=== PATIENT | female | born 1990 | race Caucasian/White ===

== ENCOUNTER 2020-05-17 17:28 | Emergency (ER) | payer OTHER, SELFPAY ==
[2020-05-17 17:38] VITALS: BP 117/76; PULSE 100; RESP 18; TEMP 36.7; O2SAT 100; BMI 33.3
--- NOTE | 2020-05-17 17:41 | XR_ITS ---
EXAMINATION: XR CHEST CLINICAL INFORMATION: Chest pain COMPARISON: None TECHNIQUE: Frontal view of the chest was obtained. FINDINGS: No significant abnormality is noted involving the heart, lungs, mediastinum, bony thorax or soft tissues. XR/XR chest 1V IMPRESSION: Unremarkable examination.
--- NOTE | 2020-05-17 17:41 | ECG_ITS ---
Test Reason : CHEST PAIN Blood Pressure : / mmHG Vent. Rate : 090 BPM Atrial Rate : 090 BPM P-R Int : 166 ms QRS Dur : 088 ms QT Int : 376 ms P-R-T Axes : 041 045 051 degrees QTc Int : 459 ms Normal sinus rhythm Nonspecific T wave abnormality Abnormal ECG When compared with ECG of 18-MAR-2019 14:16, Nonspecific T wave abnormality now evident in Anterior leads Referred By: Soledad Melo Electronically Signed By:VANDANA ARRIAGA
--- NOTE | 2020-05-17 17:42 | CT_ITS ---
EXAMINATION: CT ABDOMEN AND PELVIS WITH CONTRAST CLINICAL INFORMATION: Diffuse pain. History of pancreatitis COMPARISON: Baseline 06/06/2019 TECHNIQUE: Multidetector volumetric images were obtained from the superior aspect of the liver through the pubic symphysis following administration 85 mL of Omnipaque 350 intravenous contrast. Sagittal and coronal reformatted images were obtained on the technologist's workstation. Oral contrast: No This CT examination was performed using dose optimization techniques as appropriate, variously including the following: *Automated exposure control *Adjustment of mA and/or kV according to patient size (this includes techniques or standardized protocols for targeted exams where dose is matched to indication/reason for exam; i.e. extremities or head) *Use of iterative reconstruction technique DLP: 801 mGy-cm FINDINGS: LUNG BASES: The visualized lung bases are unremarkable. LIVER, GALLBLADDER, AND BILIARY TREE: Normal volume. Tiny cyst centrally within the liver unchanged from baseline examinations. Gallbladder is absent consistent surgical history. No biliary dilatation. PANCREAS: Unremarkable. SPLEEN: Incidental splenule. ADRENAL GLANDS: Unremarkable. KIDNEYS AND URETERS: The kidneys are normal in size, shape, and attenuation. No hydronephrosis, hydroureter, or calculi seen. No perinephric stranding. BLADDER: Unremarkable. GASTROINTESTINAL TRACT: The small and large bowel are unremarkable. The appendix is unremarkable. ABDOMINAL WALL: Tiny fat-containing umbilical hernia LYMPH NODES: Normal. VASCULAR: Unremarkable. PELVIC VISCERA: Displaced right fallopian tube ligation clip noted once again. There are morphology difficult to assess. Cystic changes suspected within both ovaries. OSSEOUS STRUCTURES: Unremarkable. CT/CT abdomen pelvis w con IMPRESSION: No bowel pathology. No evidence for any pancreatitis. If symptoms are referrable to the pelvis, consider pelvic ultrasound to assess the uterus and ovaries to better advantage. Displaced right-sided tubal ligation clip again noted.
--- NOTE | 2020-05-17 17:43 | ED.CHESTPAIN ---
HPI - Chest Pain General Chief Complaint: Chest Pain Stated Complaint: chest pain Time Seen by Provider: 05/17/20 17:34 Source: patient Mode of arrival: ambulatory History of Present Illness HPI narrative: 30-year-old female with a past medical history of pancreatitis presenting to ED complaining of constant stabbing chest pain x2 days with radiation to back. Also reports diffuse abdominal pain, nausea, and vomiting x2 days. Admits symptoms feels similar to prior pancreatitis. Denies fever, chills, diarrhea/constipation, SOB, recent travel, LE edema, calf pain, dysuria/hematuria, vaginal bleeding/discharge MD complaint: chest pain Related Data Allergies Allergy/AdvReac Type Severity Reaction Status Date / Time No Known Allergies Allergy Unverified 02/21/20 19:42 [No Known Allergies*] Review of Systems Review of Systems: Constitutional: No Weight loss, No Fever, No Chills, No Night Sweats, No Fatigue, No Malaise Cardiovascular: + Chest Pain, No SOB, No Edema, No Palpitations Respiratory: + Cough, No Sputum, No Wheezing, No Smoke Exposure, No Dyspnea Gastrointestinal: + Nausea, + Vomiting, No Diarrhea, No Constipation, + Abdominal pain Genitourinary: No irregular bleeding, No Dysuria, No Urinary Frequency, No Hematuria Musculoskeletal: No joint pain, No Myalgias, No Joint Swelling Skin: No Skin Lesions, No rash Neuro: No Weakness, No Numbness, No Paresthesias, No Loss of Consciousness, No Dizziness, No Headache Yes all other systems are reviewed and are negative [facility] Past Medical History Attestation statement: The following information was validated with the patient. Medical History (Updated 05/17/20 @ 20:44 by NATE Escoto) No known health problems Social History Social History Alcohol intake: never Smoked in Last 30 Days: Yes Use of substances other than those prescribed or required for medical reasons: No Advance Directives: No Advance Directives Information Provided: No Physical Exam Vital Signs: Vital Signs: Last Vital Signs Temp 98.2 F 05/17/20 20:24 Pulse 85 05/17/20 20:24 Resp 18 05/17/20 20:24 BP 107/66 05/17/20 20:24 Pulse Ox 100 05/17/20 20:24 Body Mass Index 33.3 Const: General: cooperative and healthy appearing Orientation/consciousness: patient oriented x3 Limitations: no limitations HENMT: Head: Yes normal to inspection Ears: hearing grossly normal bilaterally General nose exam: Normal external nose present Face and sinus: Yes normal facial exam Eyes: General: appearance normal, both eyes and all related structures EOM: EOMs intact bilaterally Neck: Neck: Yes normal visual inspection and Yes no meningeal signs Resp: Effort & Inspection: normal respiratory effort Auscultation: clear to auscultation bilaterally, no rales, no rhonchi and no wheezes Cardio: Rate: regular rate Heart sounds: S1 normal heart sound present and S2 normal heart sound present GI: Inspection: Yes normal to inspection Palpation (GI): Soft to palpation, Tenderness to palpation present (GI) in the epigastrum, in the LLQ, in the LUQ and in the RUQ, no guarding and not rigid Skin: Rashes: no rashes Wounds: no wounds Neuro: General: patient oriented x3 and no meningeal signs Gait exam (Neuro): Normal gait present Extrem: General: Yes normal to inspection Course Course Course Narrative: -labs are unremarkable, troponin negative, UA contaminated and negative -CXR unremarkable -2100--ED care transfer to [facility] pending CTAP and dispo per results MDM - Chest Pain MDM Narrative Medical decision making narrative: 30-year-old female with a past medical history of pancreatitis presenting to ED complaining of constant stabbing chest pain x2 days with radiation to back. Also reports diffuse abdominal pain, nausea, and vomiting x2 days. On exam VSS, NAD/well-appearing/nontoxic, lungs CTA, abdomen soft with upper and left lower tenderness, no rebound or guarding. Concern for ACS vs pancreatitis/liver disease vs diverticulitis. Appendicitis/renal stone on differential but lower. Low concern for pneumonia/PE/COVID-19 Plan: EKG, labs, UA, CXR, CT AP, IVF, symptomatic therapy/reassess Lab Data Result diagrams: 05/17/20 17:58 05/17/20 17:58 Labs: Lab Results 05/17/20 05/17/20 05/17/20 Range/Units 17:58 17:58 17:58 WBC 8.6 (4.8-10.8) X10*3/uL RBC 4.40 (4.20-5.50) X10*6/uL Hgb 11.5 L (12.0-16.0) g/dl Hct 37.5 (37-47) % MCV 85.2 (80-98) fL MCH 26.1 L (27.0-33.0) pg MCHC 30.7 L (31.0-35.0) g/dl RDW 14.8 (11.0-16.0) % Plt Count 292 (160-400) X10*3/uL MPV 9.2 L (9.4-12.3) fL Immature Gran % (Auto) 0.2 (0.0-0.4) % Neut % (Auto) 58.1 (45-73) % Lymph % (Auto) 36.0 (20-40) % [place] % (Auto) 3.7 (2-11) % Eos % (Auto) 1.8 (0-4) % Baso % (Auto) 0.2 (0-2) % Lymph # (Auto) 3.1 (1.2-4.9) X10*3/uL [place] # (Auto) 0.3 (0.1-1.2) X10*3/uL Eos # (Auto) 0.2 (0.0-0.4) X10*3/uL Baso # (Auto) 0.0 (0.0-0.2) X10*3/uL Abs Immat Gran (auto) 0.02 (0.00-0.03) X10*3/uL Absolute Neuts (auto) 5.0 (2.0-8.3) X10*3/uL Absolute Nucleated RBC 0.000 (0.0-0.012) X10*3/uL Nucleated RBC % (auto) 0.0 (0.0-0.2) /100WBC Hold Blue Top SEE NOTE Sodium 140 (135-145) mmol/L Potassium 4.4 (3.3-5.1) mmol/l Chloride 110 H (96-108) mmol/L Carbon Dioxide 21 L (22-29) mmol/L Anion Gap 13 (12-20) BUN 11 (9-16) mg/dL Creatinine 0.81 (0.5-1.4) mg/dL Estim Creat Clear Calc 111.9 Estimated GFR > 60 Random Glucose 85 (60-115) mg/dL Calcium 8.7 (8.4-10.2) mg/dL Magnesium 2.0 (1.6-2.6) mg/dL Total Bilirubin < 0.2 (0.0-1.0) mg/dL Direct Bilirubin < 0.2 (0.0-0.5) mg/dL AST 16 (5-31) U/L ALT 16 (0-31) U/L Alkaline Phosphatase 80 (39-117) U/L Troponin I High Sens (<3.5-17.0) ng/L Total Protein 6.7 (6.5-8.0) g/dL Albumin 4.1 (3.5-5.0) g/dL Lipase 40 (8-78) U/L Urine Color Urine Appearance Urine pH (5.0-8.0) Ur Specific [place] (1.005-1.025) Urine Protein (NEG-TRACE) MG/DL Urine Glucose (UA) (NEG) MG/DL Urine Ketones (NEG) MG/DL Urine Blood (NEG) Urine Nitrite (NEG) Ur Leukocyte Esterase (NEG) 05/17/20 05/17/20 Range/Units 17:58 20:46 WBC (4.8-10.8) X10*3/uL RBC (4.20-5.50) X10*6/uL Hgb (12.0-16.0) g/dl Hct (37-47) % MCV (80-98) fL MCH (27.0-33.0) pg MCHC (31.0-35.0) g/dl RDW (11.0-16.0) % Plt Count (160-400) X10*3/uL MPV (9.4-12.3) fL Immature Gran % (Auto) (0.0-0.4) % Neut % (Auto) (45-73) % Lymph % (Auto) (20-40) % [place] % (Auto) (2-11) % Eos % (Auto) (0-4) % Baso % (Auto) (0-2) % Lymph # (Auto) (1.2-4.9) X10*3/uL [place] # (Auto) (0.1-1.2) X10*3/uL Eos # (Auto) (0.0-0.4) X10*3/uL Baso # (Auto) (0.0-0.2) X10*3/uL Abs Immat Gran (auto) (0.00-0.03) X10*3/uL Absolute Neuts (auto) (2.0-8.3) X10*3/uL Absolute Nucleated RBC (0.0-0.012) X10*3/uL Nucleated RBC % (auto) (0.0-0.2) /100WBC Hold Blue Top Sodium (135-145) mmol/L Potassium (3.3-5.1) mmol/l Chloride (96-108) mmol/L Carbon Dioxide (22-29) mmol/L Anion Gap (12-20) BUN (9-16) mg/dL Creatinine (0.5-1.4) mg/dL Estim Creat Clear Calc Estimated GFR Random Glucose (60-115) mg/dL Calcium (8.4-10.2) mg/dL Magnesium (1.6-2.6) mg/dL Total Bilirubin (0.0-1.0) mg/dL Direct Bilirubin (0.0-0.5) mg/dL AST (5-31) U/L ALT (0-31) U/L Alkaline Phosphatase (39-117) U/L Troponin I High Sens < 3.5 (<3.5-17.0) ng/L Total Protein (6.5-8.0) g/dL Albumin (3.5-5.0) g/dL Lipase (8-78) U/L Urine Color YELLOW Urine Appearance CLEAR Urine pH 7.0 (5.0-8.0) Ur Specific [place] 1.025 (1.005-1.025) Urine Protein NEG (NEG-TRACE) MG/DL Urine Glucose (UA) NEG (NEG) MG/DL Urine Ketones NEG (NEG) MG/DL Urine Blood NEG (NEG) Urine Nitrite NEG (NEG) Ur Leukocyte Esterase 2+ H (NEG) Discharge Plan Discharge Clinical Impression: Chest pain, Abdominal pain Patient Disposition: Home, Self-Care Instructions: Chest Pain (ED), Abdominal Pain (ED) Additional Instructions: Your blood work, urine, and chest x-ray were unremarkable today in the ED You to stay hydrated at home Follow-up with her primary care doctor If her symptoms persist or worsen, develops fever, constant worsening chest pain, shortness of breath, abdominal pain, or unable to eat and drink return to the ED Referrals: Physician,Outside [Primary Care Provider] - 2 days
[2020-05-17] MEDS: 0.9 % Sodium Chloride 1,000 ML 999 ML IVCONT (18:02)
[2020-05-17] MEDS: ondansetron HCL 4 MG/2 ML VIAL IVPUSH (18:04)
[2020-05-17] MEDS: Ketorolac Tromethamine 15 MG/ML VIAL IVPUSH ×2 (18:04→20:35)
[2020-05-17 18:06] LABS: MANUAL DIFF FLAG NO
[2020-05-17 18:13] LABS: Basophils Percent Auto 0.2 % (0-2); Eosinophils Absolute Auto 0.2 X10*3/uL (0.0-0.4); Eosinophils Percent Auto 1.8 % (0-4); Hematocrit 37.5 % (37-47); Hemoglobin 11.5 g/dl (12.0-16.0); Imm Gran Abs Auto 0.02 X10*3/uL (0.00-0.03); Imm Gran Pct Auto 0.2 % (0.0-0.4); Lymphocytes Absolute Auto 3.1 X10*3/uL (1.2-4.9); Mean Corpuscular HGB Conc 30.7 g/dl (31.0-35.0); Mean Corpuscular Hemoglobin 26.1 pg (27.0-33.0); Mean Corpuscular Volume 85.2 fL (80-98); Mean Platelet Volume 9.2 fL (9.4-12.3); Monocytes Absolute Auto 0.3 X10*3/uL (0.1-1.2); Monocytes Percent Auto 3.7 % (2-11); Neutrophils Percent Auto 58.1 % (45-73); Platelet Count 292 X10*3/uL (160-400); Red Cell Distribution Width 14.8 % (11.0-16.0); White Blood Count 8.6 X10*3/uL (4.8-10.8)
[2020-05-17 18:39] LABS: Alanine Aminotransferase 16 U/L (0-31); Albumin Level 4.1 g/dL (3.5-5.0); Alkaline Phosphatase 80 U/L (39-117); Anion Gap 13 (12-20); Aspartate Amino Transferase 16 U/L (5-31); Bilirubin Direct < 0.2 mg/dL (0.0-0.5); Bilirubin Total < 0.2 mg/dL (0.0-1.0); Blood Urea Nitrogen 11 mg/dL (9-16); Calcium 8.7 mg/dL (8.4-10.2); Carbon Dioxide 21 mmol/L (22-29); Chloride 110 mmol/L (96-108); Creatinine Clr Calc Pharmacy 111.9; Estimated Glomerular Filt Rate > 60; Glucose Random 85 mg/dL (60-115); Lipase 40 U/L (8-78); Potassium 4.4 mmol/l (3.3-5.1); Sodium 140 mmol/L (135-145); Total Protein 6.7 g/dL (6.5-8.0)
[2020-05-17 18:42] LABS: Troponin-I High Sensitivity < 3.5 ng/L (<3.5-17.0)
[2020-05-17 20:24] VITALS: BP 107/66; PULSE 85; RESP 18; TEMP 36.8; O2SAT 100
--- NOTE | 2020-05-17 20:45 | PC.NURSE ---
PT A&O, NO SOB , PT COMPLAINS OF MID ABD PAIN THAT RADIATED TO UPPER CHEST. PT WAITING FOR CT SCAN AND UA.
[2020-05-17 20:53] LABS: Glucose Urine UA NEG (NEG); Leukocyte Esterase Urine 2+ (NEG); Nitrite Urine NEG (NEG); Specific Gravity - Urine 1.025 (1.005-1.025); Urine Blood NEG (NEG); Urine Ketones NEG (NEG); Urine Protein NEG (NEG-TRACE)
[2020-05-17 20:55] LABS: Appearance Urine CLEAR; Color Urine YELLOW
[2020-05-17 21:29] LABS: Bacteria Urine TRACE /LPF; RBC Urine 0-2 /HPF (0); Squamous Epithelial Cell Urine 1+ /LPF
[2020-05-17 21:30] LABS: Amorphous Sediment Urine 2+ /LPF; UPreg QC Valid YES; Urine Pregnancy NEGATIVE (NEGATIVE)
[2020-05-17 22:00] VITALS: RESP 16
[2020-05-17] MEDS: iohexoL 350 MG/ML 100 ML INFUS..BTL IV (22:02)
== END 2020-05-17 22:42 | disposition home or self-care (01) ==
PROVIDERS: Physician Assistant; Emergency Provider Internal Medicine
DX: R07.9 Chest pain, unspecified (principal); R10.9 Unspecified abdominal pain
CPT/HCPCS: 36415; 71045; 74177; 80048; 80076; 81001; 81025; 83690; 83735; 84484; 85025; 87086; 93005; 96361; 96374; 96375; 96376; 99284; J1885; J2405; Q9967

== ENCOUNTER 2020-07-05 13:14 | Emergency (ER) | payer OTHER, SELFPAY ==
[2020-07-05 13:49] VITALS: BP 110/78; PULSE 82; RESP 20; TEMP 36.8; O2SAT 100; BMI 33.3
--- NOTE | 2020-07-05 14:14 | ED.GENADULT ---
HPI - General Adult General Chief complaint: General Medical Stated complaint: abd pain Time Seen by Provider: 07/05/20 13:44 Source: patient Mode of arrival: ambulatory Limitations: no limitations History of Present Illness HPI narrative: 30-year-old female who reports history of non alcoholic pancreatitis otherwise denies any other history presents with complaint of states for the past 2 days has had runny nose/congestion with associated mild cough and nausea and vomiting with associated epigastric abdominal pain. States she has been with 2 family members in the last week that have tested positive for COVID-19 and she is concerned she might have it. Onset (ago): day(s) (2 days ) Radiation: non-radiation Associated symptoms: chest pain and cough Treatments prior to arrival: none Related Data Previous Rx's Medication Instructions Recorded ondansetron HCl [Zofran] 4 mg PO Q8H PRN #10 tab 07/05/20 Allergies Allergy/AdvReac Type Severity Reaction Status Date / Time No Known Allergies Allergy Unverified 02/21/20 19:42 [No Known Allergies*] Review of Systems Review of Systems: Constitutional: No Weight loss, No Fever, + Chills, No Night Sweats, No Fatigue, No Malaise ENT/Mouth: No Hearing loss, No Ear Pain, + Nasal Congestion, No Sinus Pain, No Hoarseness, No sore throat, + Rhinorrhea, No Swallowing Difficulty Eyes: No Eye Pain, No Swelling, No Redness, No Foreign Body, No Discharge, No Vision Changes Cardiovascular: No SOB, No Dyspnea on Exertion, No Orthopnea, No Edema, No Palpitations Respiratory: Cough with associated cp, No Sputum, No Wheezing, No Smoke Exposure, No Dyspnea Gastrointestinal: As noted in HPI, no diarrhea, No Hematochezia, No Melena Genitourinary: no irregular bleeding, No Dysuria, No Urinary Frequency, No Hematuria, No Urinary Incontinence, No Urgency, No Flank Pain, No Urinary Flow Changes, No Hesitancy Musculoskeletal: No joint pain, No Myalgias, No Joint Swelling Skin: No Skin Lesions, No rash Neuro: No Weakness, No Numbness, No Paresthesias, No Loss of Consciousness, No Dizziness, No Headache Psych: No Social Issues Heme/Lymph: No Bruising, No Bleeding,No Lymphadenopathy Endocrine: No Polyuria, No Polydipsia, No Temperature Intolerance Yes all other systems are reviewed and are negative PMFSH Past Medical History Medical History (Updated 07/05/20 @ 16:41 by Cameron Plummer NP) Cholecystectomy planned No known health problems Pancreatitis SVT (supraventricular tachycardia) Surgical History (Updated 07/05/20 @ 13:52 by Kalli Valera) Tubal ligation status Social History Social History Alcohol intake: never Smoking Status: Current every day smoker Smoked in Last 30 Days: Yes Use of substances other than those prescribed or required for medical reasons: No Advance Directives: No Advance Directives Information Provided: No Physical Exam Vital Signs: Vital Signs: Last Vital Signs Temp 98.3 F 07/05/20 15:52 Pulse 76 07/05/20 15:52 Resp 17 07/05/20 15:52 BP 108/71 07/05/20 15:52 Pulse Ox 100 07/05/20 15:52 Body Mass Index 33.3 Reviewed Const: General: cooperative and healthy appearing; No acute distress or intoxicated appearing Nutritional Appearance: average body habitus Orientation/consciousness: patient oriented x3 HENMT: Head: Yes normal to inspection Ears: hearing grossly normal bilaterally Eyes: General: appearance normal, both eyes and all related structures Visual Becerra: normal visual becerra by confrontation Neck: Neck: Yes normal visual inspection, No positive Brudzinski's sign, No positive Kernig's sign and No tender Thyroid: Thyroid normal Chest: Chest palpation & inspection: normal inspection of the chest Resp: Effort & Inspection: normal respiratory effort Auscultation: clear to auscultation bilaterally Cardio: Jugular venous distension: no JVD Rhythm: regular rhythm Heart sounds: S1 normal heart sound present and S2 normal heart sound present GI: Inspection: Yes normal to inspection Percussion: Yes normal to percussion Auscultation: normal bowel sounds : General: Yes no CVA tenderness Back/Spine/Pelvis: Back: no CVA tenderness Skin: General skin exam: no rashes or lesions noted Neuro: General: patient oriented x3 Extrem: General: Yes normal to inspection Course Course Course Narrative: And PE consistent with mild URI with cough associated chest wall pain and also mild nausea with vomiting but no diarrhea positive sick contact with family member similar symptoms diagnosed COVID several days prior to her symptoms. Lab work overall stable. Chest x-ray negative. Abdominal exam benign. COVID negative today she is hemodynamically stable. Tolerating p.o. intake without. Advised that can have early or false negative test she will need to quarantine clear return follow-up instructions provided. She verbalized understanding comfortable plan. Stable for discharge. Medical Decision Making Lab Data Result diagrams: 07/05/20 15:23 07/05/20 15:23 Labs: Lab Results 07/05/20 07/05/20 07/05/20 Range/Units 15:23 15:23 15:23 WBC 9.0 (4.8-10.8) X10*3/uL RBC 4.93 (4.20-5.50) X10*6/uL Hgb 12.9 (12.0-16.0) g/dl Hct 41.8 (37-47) % MCV 84.8 (80-98) fL MCH 26.2 L (27.0-33.0) pg MCHC 30.9 L (31.0-35.0) g/dl RDW 14.2 (11.0-16.0) % Plt Count 361 (160-400) X10*3/uL MPV 9.2 L (9.4-12.3) fL Immature Gran % (Auto) 0.3 (0.0-0.4) % Neut % (Auto) 65.0 (45-73) % Lymph % (Auto) 30.1 (20-40) % [place] % (Auto) 3.3 (2-11) % Eos % (Auto) 1.0 (0-4) % Baso % (Auto) 0.3 (0-2) % Lymph # (Auto) 2.7 (1.2-4.9) X10*3/uL [place] # (Auto) 0.3 (0.1-1.2) X10*3/uL Eos # (Auto) 0.1 (0.0-0.4) X10*3/uL Baso # (Auto) 0.0 (0.0-0.2) X10*3/uL Abs Immat Gran (auto) 0.03 (0.00-0.03) X10*3/uL Absolute Neuts (auto) 5.8 (2.0-8.3) X10*3/uL Absolute Nucleated RBC 0.000 (0.0-0.012) X10*3/uL Nucleated RBC % (auto) 0.0 (0.0-0.2) /100WBC PT 13.4 H (10.8-13.0) SEC INR 1.1 (0.9-1.1) APTT 36.1 (24.1-38.0) SEC Sodium 141 (135-145) mmol/L Potassium 3.9 (3.3-5.1) mmol/L Chloride 109 H (96-108) mmol/L Carbon Dioxide 22 (22-29) mmol/L Anion Gap 14 (12-20) BUN 11 (9-16) mg/dL Creatinine 0.85 (0.5-1.4) mg/dL Estim Creat Clear Calc 106.7 Estimated GFR > 60 Random Glucose 87 (60-115) mg/dL Calcium 9.3 D (8.4-10.2) mg/dL Total Bilirubin 0.4 (0.0-1.0) mg/dL AST 14 (5-31) U/L ALT 16 (0-31) U/L Alkaline Phosphatase 83 (39-117) U/L Troponin I High Sens (<3.5-17.0) ng/L Total Protein 7.2 (6.5-8.0) g/dL Albumin 4.3 (3.5-5.0) g/dL Lipase 30 (8-78) U/L Urine Color Urine Appearance Urine pH (5.0-8.0) Ur Specific [place] (1.005-1.025) Urine Protein (NEG-TRACE) MG/DL Urine Glucose (UA) (NEG) MG/DL Urine Ketones (NEG) MG/DL Urine Blood (NEG) Urine Nitrite (NEG) Ur Leukocyte Esterase (NEG) Urine RBC (0) /HPF Urine WBC (0-4) /HPF Ur Squamous Epith Cells /LPF Amorphous Sediment /LPF Urine Bacteria /LPF Urine Test (NEGATIVE) COVID-19 (LUCAS) (Negative) COVID-19 Clin Com 07/05/20 07/05/20 07/05/20 Range/Units 15:23 15:24 15:26 WBC (4.8-10.8) X10*3/uL RBC (4.20-5.50) X10*6/uL Hgb (12.0-16.0) g/dl Hct (37-47) % MCV (80-98) fL MCH (27.0-33.0) pg MCHC (31.0-35.0) g/dl RDW (11.0-16.0) % Plt Count (160-400) X10*3/uL MPV (9.4-12.3) fL Immature Gran % (Auto) (0.0-0.4) % Neut % (Auto) (45-73) % Lymph % (Auto) (20-40) % [place] % (Auto) (2-11) % Eos % (Auto) (0-4) % Baso % (Auto) (0-2) % Lymph # (Auto) (1.2-4.9) X10*3/uL [place] # (Auto) (0.1-1.2) X10*3/uL Eos # (Auto) (0.0-0.4) X10*3/uL Baso # (Auto) (0.0-0.2) X10*3/uL Abs Immat Gran (auto) (0.00-0.03) X10*3/uL Absolute Neuts (auto) (2.0-8.3) X10*3/uL Absolute Nucleated RBC (0.0-0.012) X10*3/uL Nucleated RBC % (auto) (0.0-0.2) /100WBC PT (10.8-13.0) SEC INR (0.9-1.1) APTT (24.1-38.0) SEC Sodium (135-145) mmol/L Potassium (3.3-5.1) mmol/L Chloride (96-108) mmol/L Carbon Dioxide (22-29) mmol/L Anion Gap (12-20) BUN (9-16) mg/dL Creatinine (0.5-1.4) mg/dL Estim Creat Clear Calc Estimated GFR Random Glucose (60-115) mg/dL Calcium (8.4-10.2) mg/dL Total Bilirubin (0.0-1.0) mg/dL AST (5-31) U/L ALT (0-31) U/L Alkaline Phosphatase (39-117) U/L Troponin I High Sens < 3.5 (<3.5-17.0) ng/L Total Protein (6.5-8.0) g/dL Albumin (3.5-5.0) g/dL Lipase (8-78) U/L Urine Color YELLOW Urine Appearance CLOUDY Urine pH 6.5 (5.0-8.0) Ur Specific [place] 1.025 (1.005-1.025) Urine Protein NEG (NEG-TRACE) MG/DL Urine Glucose (UA) NEG (NEG) MG/DL Urine Ketones NEG (NEG) MG/DL Urine Blood NEG (NEG) Urine Nitrite NEG (NEG) Ur Leukocyte Esterase 2+ H (NEG) Urine RBC 0 (0) /HPF Urine WBC 1-4 (0-4) /HPF Ur Squamous Epith Cells 2+ /LPF Amorphous Sediment 4+ /LPF Urine Bacteria NONE /LPF Urine Test NEGATIVE (NEGATIVE) COVID-19 (LUCAS) Negative (Negative) COVID-19 Clin Com See Note Imaging Data Chest x-ray: Radiologist's impression: [address] [id number] ReportSigned Patient: Joanne Guaman JMR#: [id number]: [id number]:[id number]/Sex: 30 / FADM Date: 07/05/20Loc: [place] Dr: Ordering Physician: Cameron Plummer NP Date of Service: 07/05/20 Procedure(s): XR chest 1V Accession Number(s): [id number] cc: Cameron Plummer COMMUNICATIONS REPRESENTATIVE~ EXAMINATION: XR CHEST CLINICAL INFORMATION: Chest pain COMPARISON: 05/17/2020 TECHNIQUE: Frontal view of the chest was obtained. FINDINGS: Lungs are clear. No consolidation, pneumothorax, or pleural effusion. Cardiac and mediastinal contours are normal. Pulmonary vasculature is unremarkable. No acute osseous findings. XR/XR chest 1V IMPRESSION: Clear lungs. No acute pulmonary findings. Dictated By:CHAD RAMOS MDSigned By:<Electronically signed by CHAD RAMOS MD in OV>07/05/20 1511 DD/ [id number]/TT: Rehabilitation Specialist: HIRA ECG Data Interpretation: Normal sinus rhythm Nonspecific T wave abnormality Abnormal ECG When compared with ECG of 18-MAR-2019 14:16, Nonspecific T wave abnormality now evident in Anterior leads Discharge Plan Discharge Clinical Impression: Acute upper respiratory infection, Nausea & vomiting Patient Disposition: Home, Self-Care Instructions: Upper Respiratory Infection (ED), Acute Nausea and Vomiting (ED) Additional Instructions: Your COVID test was negative today Self-isolation/quarantine until at least 3 days symptom-free Drink plenty of fluids Return if any concerns or worsening symptoms Otherwise follow-up with her primary care doctor as discussed Thank you Prescriptions: New ondansetron HCl [Zofran] 4 mg tablet 4 mg PO Q8H PRN (Reason: nausea and vomiting) Qty: 10 RF: 0 Referrals: ED Physician,Generic [Emergency Provider] - 2 days
--- NOTE | 2020-07-05 14:18 | ECG_ITS ---
Test Reason : DIFFICULYL BREATHING Blood Pressure : / mmHG Vent. Rate : 074 BPM Atrial Rate : 074 BPM P-R Int : 154 ms QRS Dur : 088 ms QT Int : 394 ms P-R-T Axes : 024 028 040 degrees QTc Int : 437 ms Normal sinus rhythm with sinus arrhythmia Normal ECG When compared with ECG of 17-MAY-2020 17:53, No significant change was found Referred By: Cameron Plummer Electronically Signed By:Adrian Cifuentes
--- NOTE | 2020-07-05 14:18 | XR_ITS ---
EXAMINATION: XR CHEST CLINICAL INFORMATION: Chest pain COMPARISON: 05/17/2020 TECHNIQUE: Frontal view of the chest was obtained. FINDINGS: Lungs are clear. No consolidation, pneumothorax, or pleural effusion. Cardiac and mediastinal contours are normal. Pulmonary vasculature is unremarkable. No acute osseous findings. XR/XR chest 1V IMPRESSION: Clear lungs. No acute pulmonary findings.
[2020-07-05 15:32] LABS: MANUAL DIFF FLAG NO
[2020-07-05 15:34] LABS: Basophils Percent Auto 0.3 % (0-2); Eosinophils Absolute Auto 0.1 X10*3/uL (0.0-0.4); Hematocrit 41.8 % (37-47); Hemoglobin 12.9 g/dl (12.0-16.0); Imm Gran Abs Auto 0.03 X10*3/uL (0.00-0.03); Imm Gran Pct Auto 0.3 % (0.0-0.4); Lymphocytes Absolute Auto 2.7 X10*3/uL (1.2-4.9); Lymphocytes Percent Auto 30.1 % (20-40); Mean Corpuscular HGB Conc 30.9 g/dl (31.0-35.0); Mean Corpuscular Hemoglobin 26.2 pg (27.0-33.0); Mean Corpuscular Volume 84.8 fL (80-98); Mean Platelet Volume 9.2 fL (9.4-12.3); Monocytes Absolute Auto 0.3 X10*3/uL (0.1-1.2); Monocytes Percent Auto 3.3 % (2-11); Neutrophils Absolute Auto 5.8 X10*3/uL (2.0-8.3); Platelet Count 361 X10*3/uL (160-400); Red Blood Count 4.93 X10*6/uL (4.20-5.50); Red Cell Distribution Width 14.2 % (11.0-16.0)
[2020-07-05 15:36] LABS: Glucose Urine UA NEG (NEG); Leukocyte Esterase Urine 2+ (NEG); Nitrite Urine NEG (NEG); PH 6.5 (5.0-8.0); Specific Gravity - Urine 1.025 (1.005-1.025); UACC Culture Trigger YES; Urine Blood NEG (NEG); Urine Ketones NEG (NEG); Urine Protein NEG (NEG-TRACE)
[2020-07-05 15:41] LABS: INTERNATIONAL NORM RATIO 1.1 (0.9-1.1); Prothrombin Time 13.4 SEC (10.8-13.0)
[2020-07-05 15:43] LABS: UPreg QC Valid YES; Urine Pregnancy NEGATIVE (NEGATIVE)
[2020-07-05 15:44] LABS: Appearance Urine CLOUDY; Color Urine YELLOW
[2020-07-05 15:44] LABS: Partial Thromboplastin Time 36.1 SEC (24.1-38.0)
[2020-07-05] MEDS: 0.9 % Sodium Chloride 500 ML IV (15:47)
[2020-07-05 15:52] VITALS: BP 108/71; PULSE 76; RESP 17; TEMP 36.8; O2SAT 100
[2020-07-05 15:52] LABS: Amorphous Sediment Urine 4+ /LPF; RBC Urine 0 /HPF (0); Squamous Epithelial Cell Urine 2+ /LPF; UACC CULT YES
[2020-07-05 16:01] LABS: COVID-19 Test Negative (Negative); IDNOW Serial# 9DD0AD1C
[2020-07-05 16:04] LABS: Alanine Aminotransferase 16 U/L (0-31); Albumin Level 4.3 g/dL (3.5-5.0); Alkaline Phosphatase 83 U/L (39-117); Anion Gap 14 (12-20); Aspartate Amino Transferase 14 U/L (5-31); Bilirubin Total 0.4 mg/dL (0.0-1.0); Blood Urea Nitrogen 11 mg/dL (9-16); Calcium 9.3 mg/dL (8.4-10.2); Carbon Dioxide 22 mmol/L (22-29); Chloride 109 mmol/L (96-108); Creatinine Clr Calc Pharmacy 106.7; Estimated Glomerular Filt Rate > 60; Glucose Random 87 mg/dL (60-115); Lipase 30 U/L (8-78); Potassium 3.9 mmol/L (3.3-5.1); Sodium 141 mmol/L (135-145); Total Protein 7.2 g/dL (6.5-8.0)
[2020-07-05 16:08] LABS: Troponin-I High Sensitivity < 3.5 ng/L (<3.5-17.0)
[2020-07-05] MEDS: Ketorolac Tromethamine 30 MG/ML VIAL IVPUSH (16:21)
[2020-07-05] MEDS: ondansetron HCL 4 MG/2 ML VIAL IVPUSH (16:22)
== END 2020-07-05 16:57 | disposition home or self-care (01) ==
PROVIDERS: Nurse Practitioner Primary Care; Emergency Provider Emergency Medicine
DX: J06.9 Acute upper respiratory infection, unspecified (principal); Z20.822 Contact with and (suspected) exposure to COVID-19; N39.0 Urinary tract infection, site not specified; R11.2 Nausea with vomiting, unspecified; F17.200 Nicotine dependence, unspecified, uncomplicated
CPT/HCPCS: 36415; 71045; 80053; 81001; 81025; 83690; 84484; 85025; 85610; 85730; 87086; 87635; 93005; 96361; 96374; 96375; 99284; J1885; J2405

== ENCOUNTER 2020-07-19 14:08 | Emergency (ER) | payer OTHER, SELFPAY ==
--- NOTE | ~2020-07-19 | US_ITS ---
EXAMINATION: US ABDOMEN COMPLETE CLINICAL INFORMATION: Diffuse abdominal pain. History of pancreatitis.. COMPARISON: CT scan of May 17, 2020 TECHNIQUE: Real-time imaging of the abdominal viscera. FINDINGS: PANCREAS: Unremarkable without evidence of focal mass or peripancreatic inflammatory change. ABDOMINAL AORTA: The proximal, mid, and distal segments are normal in caliber. INFERIOR VENA CAVA: Visualized portions are normal. LIVER: There is increased echogenicity of the liver consistent with fatty infiltration. The liver is normal in size. The liver contour is normal. Within the right lobe of liver there is a 1 cm minimally complex cyst with thin septation. There is no intrahepatic biliary duct dilatation seen. GALLBLADDER: Status post cholecystectomy. COMMON BILE DUCT: Normal in caliber measuring 0.5 cm in diameter. RIGHT KIDNEY: Normal. No hydronephrosis. No renal calculi or focal parenchymal lesions. The kidney measures 11.3 cm in maximum dimension. LEFT KIDNEY: Normal. No hydronephrosis. No renal calculi or focal parenchymal lesions. The kidney measures 10.8 cm in maximum dimension. SPLEEN: Normal. The spleen measures 11.3 cm in maximum dimension. FREE FLUID: None. US/US abdomen complete IMPRESSION: No evidence of acute pancreatitis. Findings consistent with fatty infiltration of liver. 1 cm right hepatic cyst.
--- NOTE | ~2020-07-19 | XR_ITS ---
EXAMINATION: XR CHEST CLINICAL INFORMATION: Nonproductive cough. Nausea and vomiting. COMPARISON: Chest radiograph dated 07/05/2020. TECHNIQUE: Frontal view of the chest was obtained. FINDINGS: The lungs are clear. The cardiomediastinal silhouette is normal in size. There is no pleural effusion or pneumothorax. No acute osseous abnormality. XR/XR chest 1V IMPRESSION: No acute cardiopulmonary findings.
--- NOTE | ~2020-07-19 | CT_ITS ---
EXAMINATION: CT ABDOMEN AND PELVIS WITH CONTRAST CLINICAL INFORMATION: abn liver on us COMPARISON: 05/17/2020 CT scan and 07/19/2020 ultrasound TECHNIQUE: Multidetector volumetric imaging was performed from the superior aspect of the liver through the pubic symphysis following administration of 100 mL Omnipaque 300 intravenous contrast. Sagittal and coronal reformatted images were obtained on the technologist workstation.. This CT examination was performed using dose optimization techniques as appropriate, variously including the following: *Automated exposure control *Adjustment of mA and/or kV according to patient size (this includes techniques or standardized protocols for targeted exams where dose is matched to indication/reason for exam; i.e. extremities or head) *Use of iterative reconstruction technique DLP: 690 mGy-cm FINDINGS: LUNG BASES: The visualized lung bases are unremarkable. LIVER, GALLBLADDER, AND BILIARY TREE: The liver is normal in size and shape. Mild fatty infiltration suspected. Tiny low-attenuation cyst in the central right lobe the liver but no suspicious focal hepatic lesion or biliary ductal dilatation is present. Gallbladder surgically absent. PANCREAS: Unremarkable. SPLEEN: Unremarkable. ADRENAL GLANDS: Unremarkable. KIDNEYS AND URETERS: The kidneys are normal in size, shape, and attenuation. No hydronephrosis, hydroureter, or calculi seen. No perinephric stranding. BLADDER: Unremarkable. GASTROINTESTINAL TRACT: The small and large bowel are unremarkable. The appendix is unremarkable. ABDOMINAL WALL: No significant hernia is appreciated. LYMPHOVASCULAR STRUCTURES: No lymphadenopathy. The aorta is unremarkable. PELVIC VISCERA: Unremarkable. OSSEOUS STRUCTURES: Unremarkable. CT/CT abdomen pelvis w con IMPRESSION: Mild diffuse fatty infiltration of the liver and a tiny subcentimeter hepatic cyst but no suspicious hepatic lesions. Gallbladder surgically absent. No acute intra-abdominal process.
[2020-07-19 14:53] VITALS: BP 118/74; PULSE 78; RESP 18; TEMP 36.8; O2SAT 100
--- NOTE | 2020-07-19 15:52 | ED.ABDPAIN ---
HPI - Abdominal Pain General Chief Complaint: General Medical Stated Complaint: n/v bodyache Time Seen by Provider: 07/19/20 14:54 Source: patient Mode of arrival: ambulatory Limitations: no limitations History of Present Illness HPI narrative: 30-year-old female with a past medical history of pancreatitis, proximal atrial fibrillation, SVT, paresthesias, fibromyalgia, chronic back pain and asthma presenting to the ED with multiple complaints which include chills, body aches, nausea/vomiting, dry cough, diffuse abdominal pain and constipation for the past 5 days worse today. Denies recent travel or sick contacts. Reports that the pancreatitis in the past has been from her ADHD medications. MD elicited complaint: abdominal pain Pertinent past history: other (Pancreatitis in the past) Onset (ago): day(s) (5 days worse today) Pain Consistency: constant Location: diffuse Severity: severe Pain scale (0-10): 10 Quality: aching Radiation: none Migration to: no migration Exacerbating factors: nothing Relieving factors: nothing Associated symptoms: nausea, vomiting, chills and constipation Related Data Previous Rx's Medication Instructions Recorded ondansetron HCl [Zofran] 4 mg PO Q8H PRN #10 tab 07/05/20 ibuprofen 600 mg PO Q8H PRN #14 tab 07/19/20 ondansetron HCl [Zofran] 4 mg PO Q8H PRN #14 tab 07/19/20 oxycodone-acetaminophen [Percocet] 1 tab PO Q6H PRN #10 tab 07/19/20 Allergies Allergy/AdvReac Type Severity Reaction Status Date / Time strawberry Allergy Anaphylaxis Verified 07/19/20 16:56 Review of Systems Review of Systems Constitutional : No Weight loss, No Fever, + Chills, No Night Sweats, + Fatigue, + Malaise ENT/Mouth: No ear pain, No sore throat, No Difficulty swallowing Cardiovascular : No Chest Pain, No SOB, No Dyspnea on Exertion, No Orthopnea, NoEdema, No Palpitations Respiratory : + Cough, No Sputum, No Wheezing, No Dyspnea Gastrointestinal : + Nausea, + Vomiting, + abdominal Pain, + Constipation, No Diarrhea, No Hematochezia, No Melena Genitourinary : No irregular bleeding, No Dysuria, No Urinary Frequency, No Hematuria,No Urinary Incontinence, No Urgency, No Flank Pain Musculoskeletal : No joint pain, No Myalgias, No Joint Swelling Skin : No Skin Lesions, No rash Neuro : No Weakness, No Numbness, No Paresthesias, No Loss of Consciousness, NoDizziness, No Headache Psych : No Social Issues, Heme/Lymph: No Bruising, No Bleeding,No Lymphadenopathy Endocrine : No Polyuria, No Polydipsia, No Temperature Intolerance Yes all other systems are reviewed and are negative Physical Exam Vital Signs: Vital Signs: Last Vital Signs Temp 98.5 F 07/19/20 16:00 Pulse 66 07/19/20 16:00 Resp 16 07/19/20 16:00 BP 98/74 07/19/20 16:00 Pulse Ox 100 07/19/20 16:00 Body Mass Index 33.3 vital signs have been reviewed as normal and appeared to be correct. Blood pressure normal. Heart rate normal. Respiration rate normal. Temperature normal. Oxygen saturation normal. Appearance: Alert. Oriented X3. No acute distress. Head: Normal external exam. Normocephalic. Eyes: PERRLA. EOMI. Conjunctiva and sclera normal. Eyelids normal. ENT: Pharynx normal. Uvula midline. Moist mucous membranes. No trismus noted. No drooling noted. No muffled voice noted. Neck: Normal inspection. Neck supple. FROM. No adenopathy. No meningeal signs. Trachea midline. No neck masses noted. CVS: Normal heart rate and rhythm. Heart sound normal. No murmurs noted. Pulses normal throughout. Respiratory: No respiratory distress. Painless inspiration. Breath sounds normal. No wheezes/rales/rhonchi noted. Chest nontender. No accessory muscle usage noted or decreased air movement noted. Abdomen: Soft and tenderness to palpation diffusely although worse in the left upper quadrant/epigastric area with guarding. Nondistended. No rigidity. Bowel sounds normal in all 4 quadrants. No distention noted. No organomegaly noted. No visible injury noted. No rebound tenderness. Negative Rovsing sign. Negative obturator's sign. Negative psoas sign. Negative Javier sign. Back: No CVA tenderness. Full range of motion noted. Skin: Skin warm and dry. Normal skin color. Normal skin turgor. No rashes/lesions/lacerations noted. Extremities: Extremities exhibit normal range of motion. Extremities nontender. Neuro: Oriented X 3. No motor deficit. No sensory deficit. Reflexes normal. Course Course Course Narrative: 15pm - 30-year-old female with a past medical history of pancreatitis, proximal atrial fibrillation, SVT, paresthesias, fibromyalgia, chronic back pain and asthma presenting to the ED with multiple complaints which include chills, body aches, nausea/vomiting, dry cough, diffuse abdominal pain and constipation for the past 5 days worse today. - on exam patient is alert and oriented x3. Not in any acute distress. Vital signs are stable within normal limits. Well-developed/well-nourished/well hydrated. Nontoxic appearing. No signs of dehydrations. - concern for pancreatitis versus cholecystitis versus COVID versus viral syndrome versus pneumonia - Plan: Labs, CXR, COVID/RSV/flu swab, abdominal ultrasound. Provide IV fluids, 4 mg of Zofran and 30 mg of IV Toradol then re-evaluate. Reevaluation(s) Reevaluation #1: - all labs within normal limits. UA within normal limits no evidence of UTI. ETOH level negative. Chest x-ray within normal limits no acute processes noted. Abdominal ultrasound revealed no evidence of acute pancreatitis revealed a fatty infiltrate of the liver and 1 cm right hepatic complex cyst. - still awaiting COVID/RSV/flu swab. - patient reports she is still having moderate pain the nurse was unable to give her the Zofran and the Toradol due to she was busy with other patients although will be given to her soon therefore explained this to the patient. - will obtain a CT scan of abdomen and pelvis to evaluate for any other acute processes. - Sign out to ADAM Qiu at this time pending COVID/RSV/flu swab and a CT scan of abdomen and pelvis with IV contrast along with p.o. trial. Time: 16:55 MDM - Abdominal Pain Medical Records Attestation: I reviewed the patient's medical records. Lab Data Attestation: I reviewed the patient's lab results. Result diagrams: 07/19/20 15:51 07/19/20 15:51 Labs: Lab Results 07/19/20 07/19/20 07/19/20 Range/Units 15:50 15:51 15:51 WBC 9.0 (4.8-10.8) X10*3/uL RBC 4.60 (4.20-5.50) X10*6/uL Hgb 12.2 (12.0-16.0) g/dl Hct 38.9 (37-47) % MCV 84.6 (80-98) fL MCH 26.5 L (27.0-33.0) pg MCHC 31.4 (31.0-35.0) g/dl RDW 14.6 (11.0-16.0) % Plt Count 293 (160-400) X10*3/uL MPV 9.2 L (9.4-12.3) fL Immature Gran % (Auto) 0.2 (0.0-0.4) % Neut % (Auto) 64.4 (45-73) % Lymph % (Auto) 29.2 (20-40) % [place] % (Auto) 4.7 (2-11) % Eos % (Auto) 1.2 (0-4) % Baso % (Auto) 0.3 (0-2) % Lymph # (Auto) 2.6 (1.2-4.9) X10*3/uL [place] # (Auto) 0.4 (0.1-1.2) X10*3/uL Eos # (Auto) 0.1 (0.0-0.4) X10*3/uL Baso # (Auto) 0.0 (0.0-0.2) X10*3/uL Abs Immat Gran (auto) 0.02 (0.00-0.03) X10*3/uL Absolute Neuts (auto) 5.8 (2.0-8.3) X10*3/uL Absolute Nucleated RBC 0.000 (0.0-0.012) X10*3/uL Nucleated RBC % (auto) 0.0 (0.0-0.2) /100WBC PT 13.7 H (10.8-13.0) SEC INR 1.2 H (0.9-1.1) Sodium (135-145) mmol/L Potassium (3.3-5.1) mmol/L Chloride (96-108) mmol/L Carbon Dioxide (22-29) mmol/L Anion Gap (12-20) BUN (9-16) mg/dL Creatinine (0.5-1.4) mg/dL Estim Creat Clear Calc Estimated GFR Random Glucose (60-115) mg/dL Calcium (8.4-10.2) mg/dL Magnesium (1.6-2.6) mg/dL Ferritin (10-122) ng/mL Total Bilirubin (0.0-1.0) mg/dL Direct Bilirubin (0.0-0.5) mg/dL AST (5-31) U/L ALT (0-31) U/L Alkaline Phosphatase (39-117) U/L Lactate Dehydrogenase (122-220) U/L C-Reactive Protein (< or = 0.50) mg/dL Total Protein (6.5-8.0) g/dL Albumin (3.5-5.0) g/dL Lipase (8-78) U/L Procalcitonin ng/mL Urine Color YELLOW Urine Appearance CLOUDY Urine pH 7.0 (5.0-8.0) Ur Specific [place] 1.020 (1.005-1.025) Urine Protein NEG (NEG-TRACE) MG/DL Urine Glucose (UA) NEG (NEG) MG/DL Urine Ketones NEG (NEG) MG/DL Urine Blood NEG (NEG) Urine Nitrite NEG (NEG) Ur Leukocyte Esterase 1+ H (NEG) Urine RBC 0 (0) /HPF Urine WBC 1-4 (0-4) /HPF Ur Squamous Epith Cells 4+ /LPF Amorphous Sediment 3+ /LPF Urine Bacteria NONE /LPF Urine Test NEGATIVE (NEGATIVE) Ethyl Alcohol mg/dL 07/19/20 07/19/20 07/19/20 Range/Units 15:51 15:51 15:51 WBC (4.8-10.8) X10*3/uL RBC (4.20-5.50) X10*6/uL Hgb (12.0-16.0) g/dl Hct (37-47) % MCV (80-98) fL MCH (27.0-33.0) pg MCHC (31.0-35.0) g/dl RDW (11.0-16.0) % Plt Count (160-400) X10*3/uL MPV (9.4-12.3) fL Immature Gran % (Auto) (0.0-0.4) % Neut % (Auto) (45-73) % Lymph % (Auto) (20-40) % [place] % (Auto) (2-11) % Eos % (Auto) (0-4) % Baso % (Auto) (0-2) % Lymph # (Auto) (1.2-4.9) X10*3/uL [place] # (Auto) (0.1-1.2) X10*3/uL Eos # (Auto) (0.0-0.4) X10*3/uL Baso # (Auto) (0.0-0.2) X10*3/uL Abs Immat Gran (auto) (0.00-0.03) X10*3/uL Absolute Neuts (auto) (2.0-8.3) X10*3/uL Absolute Nucleated RBC (0.0-0.012) X10*3/uL Nucleated RBC % (auto) (0.0-0.2) /100WBC PT (10.8-13.0) SEC INR (0.9-1.1) Sodium 142 (135-145) mmol/L Potassium 4.3 (3.3-5.1) mmol/L Chloride 111 H (96-108) mmol/L Carbon Dioxide 24 (22-29) mmol/L Anion Gap 11 L (12-20) BUN 12 (9-16) mg/dL Creatinine 0.82 (0.5-1.4) mg/dL Estim Creat Clear Calc TNP Estimated GFR > 60 Random Glucose 91 (60-115) mg/dL Calcium 9.2 (8.4-10.2) mg/dL Magnesium 2.3 (1.6-2.6) mg/dL Ferritin 14 (10-122) ng/mL Total Bilirubin 0.5 (0.0-1.0) mg/dL Direct Bilirubin < 0.2 (0.0-0.5) mg/dL AST 15 (5-31) U/L ALT 15 (0-31) U/L Alkaline Phosphatase 74 (39-117) U/L Lactate Dehydrogenase 168 (122-220) U/L C-Reactive Protein 0.88 H (< or = 0.50) mg/dL Total Protein 7.0 (6.5-8.0) g/dL Albumin 4.2 (3.5-5.0) g/dL Lipase 29 (8-78) U/L Procalcitonin ng/mL Urine Color Urine Appearance Urine pH (5.0-8.0) Ur Specific [place] (1.005-1.025) Urine Protein (NEG-TRACE) MG/DL Urine Glucose (UA) (NEG) MG/DL Urine Ketones (NEG) MG/DL Urine Blood (NEG) Urine Nitrite (NEG) Ur Leukocyte Esterase (NEG) Urine RBC (0) /HPF Urine WBC (0-4) /HPF Ur Squamous Epith Cells /LPF Amorphous Sediment /LPF Urine Bacteria /LPF Urine Test (NEGATIVE) Ethyl Alcohol < 10 mg/dL 07/19/20 Range/Units 15:51 WBC (4.8-10.8) X10*3/uL RBC (4.20-5.50) X10*6/uL Hgb (12.0-16.0) g/dl Hct (37-47) % MCV (80-98) fL MCH (27.0-33.0) pg MCHC (31.0-35.0) g/dl RDW (11.0-16.0) % Plt Count (160-400) X10*3/uL MPV (9.4-12.3) fL Immature Gran % (Auto) (0.0-0.4) % Neut % (Auto) (45-73) % Lymph % (Auto) (20-40) % [place] % (Auto) (2-11) % Eos % (Auto) (0-4) % Baso % (Auto) (0-2) % Lymph # (Auto) (1.2-4.9) X10*3/uL [place] # (Auto) (0.1-1.2) X10*3/uL Eos # (Auto) (0.0-0.4) X10*3/uL Baso # (Auto) (0.0-0.2) X10*3/uL Abs Immat Gran (auto) (0.00-0.03) X10*3/uL Absolute Neuts (auto) (2.0-8.3) X10*3/uL Absolute Nucleated RBC (0.0-0.012) X10*3/uL Nucleated RBC % (auto) (0.0-0.2) /100WBC PT (10.8-13.0) SEC INR (0.9-1.1) Sodium (135-145) mmol/L Potassium (3.3-5.1) mmol/L Chloride (96-108) mmol/L Carbon Dioxide (22-29) mmol/L Anion Gap (12-20) BUN (9-16) mg/dL Creatinine (0.5-1.4) mg/dL Estim Creat Clear Calc Estimated GFR Random Glucose (60-115) mg/dL Calcium (8.4-10.2) mg/dL Magnesium (1.6-2.6) mg/dL Ferritin (10-122) ng/mL Total Bilirubin (0.0-1.0) mg/dL Direct Bilirubin (0.0-0.5) mg/dL AST (5-31) U/L ALT (0-31) U/L Alkaline Phosphatase (39-117) U/L Lactate Dehydrogenase (122-220) U/L C-Reactive Protein (< or = 0.50) mg/dL Total Protein (6.5-8.0) g/dL Albumin (3.5-5.0) g/dL Lipase (8-78) U/L Procalcitonin < 0.02 ng/mL Urine Color Urine Appearance Urine pH (5.0-8.0) Ur Specific [place] (1.005-1.025) Urine Protein (NEG-TRACE) MG/DL Urine Glucose (UA) (NEG) MG/DL Urine Ketones (NEG) MG/DL Urine Blood (NEG) Urine Nitrite (NEG) Ur Leukocyte Esterase (NEG) Urine RBC (0) /HPF Urine WBC (0-4) /HPF Ur Squamous Epith Cells /LPF Amorphous Sediment /LPF Urine Bacteria /LPF Urine Test (NEGATIVE) Ethyl Alcohol mg/dL Imaging Data Chest x-ray: Attestation: I personally reviewed and interpreted this imaging study as follows: Radiologist's impression: FINDINGS: The lungs are clear. The cardiomediastinal silhouette is normal in size. There is no pleural effusion or pneumothorax. No acute osseous abnormality. XR/XR chest 1V IMPRESSION: No acute cardiopulmonary findings. Abdominal US: Attestation: I personally reviewed and interpreted this imaging study as follows: Radiologist's impression: FINDINGS: PANCREAS: Unremarkable without evidence of focal mass or peripancreatic inflammatory change. ABDOMINAL AORTA: The proximal, mid, and distal segments are normal in caliber. INFERIOR VENA CAVA: Visualized portions are normal. LIVER: There is increased echogenicity of the liver consistent with fatty infiltration. The liver is normal in size. The liver contour is normal. Within the right lobe of liver there is a 1 cm minimally complex cyst with thin septation. There is no intrahepatic biliary duct dilatation seen. GALLBLADDER: Status post cholecystectomy. COMMON BILE DUCT: Normal in caliber measuring 0.5 cm in diameter. RIGHT KIDNEY: Normal. No hydronephrosis. No renal calculi or focal parenchymal lesions. The kidney measures 11.3 cm in maximum dimension. LEFT KIDNEY: Normal. No hydronephrosis. No renal calculi or focal parenchymal lesions. The kidney measures 10.8 cm in maximum dimension. SPLEEN: Normal. The spleen measures 11.3 cm in maximum dimension. FREE FLUID: None. US/US abdomen complete IMPRESSION: No evidence of acute pancreatitis. Findings consistent with fatty infiltration of liver. 1 cm right hepatic cyst. Discharge Plan Discharge Clinical Impression: Nausea & vomiting, Abdominal pain, Fatty liver, Hepatic cyst Instructions: Non-Alcoholic Fatty Liver Disease (ED) Prescriptions: New ibuprofen 800 mg tablet 600 mg PO Q8H PRN (Reason: pain) Qty: 14 RF: 0 ondansetron HCl [Zofran] 4 mg tablet 4 mg PO Q8H PRN (Reason: nausea and vomiting) Qty: 14 RF: 0 oxycodone-acetaminophen [Percocet] 5-325 mg tablet 1 tab PO Q6H PRN (Reason: pain) Qty: 10 RF: 0 No Action ondansetron HCl [Zofran] 4 mg tablet 4 mg PO Q8H PRN (Reason: nausea and vomiting) Qty: 10 RF: 0 Referrals: Physician,None [Primary Care Provider] - 2 days (Your PCP) Stand Alone Forms: Work/School Release Print Language: Lithuanian [facility] Past Medical History Attestation statement: The following information was validated with the patient. Medical History Cholecystectomy planned Pancreatitis SVT (supraventricular tachycardia) Surgical History Tubal ligation status Social History Social History Alcohol intake: never Smoking Status: Current every day smoker Advance Directives: No Advance Directives Information Provided: No
[2020-07-19 16:00] VITALS: BP 98/74; PULSE 66; RESP 16; TEMP 36.9; O2SAT 100
[2020-07-19 16:00] LABS: MANUAL DIFF FLAG NO
[2020-07-19 16:02] LABS: Basophils Percent Auto 0.3 % (0-2); Eosinophils Absolute Auto 0.1 X10*3/uL (0.0-0.4); Eosinophils Percent Auto 1.2 % (0-4); Hematocrit 38.9 % (37-47); Hemoglobin 12.2 g/dl (12.0-16.0); Imm Gran Abs Auto 0.02 X10*3/uL (0.00-0.03); Imm Gran Pct Auto 0.2 % (0.0-0.4); Lymphocytes Absolute Auto 2.6 X10*3/uL (1.2-4.9); Lymphocytes Percent Auto 29.2 % (20-40); Mean Corpuscular HGB Conc 31.4 g/dl (31.0-35.0); Mean Corpuscular Hemoglobin 26.5 pg (27.0-33.0); Mean Corpuscular Volume 84.6 fL (80-98); Mean Platelet Volume 9.2 fL (9.4-12.3); Monocytes Absolute Auto 0.4 X10*3/uL (0.1-1.2); Monocytes Percent Auto 4.7 % (2-11); Neutrophils Absolute Auto 5.8 X10*3/uL (2.0-8.3); Neutrophils Percent Auto 64.4 % (45-73); Platelet Count 293 X10*3/uL (160-400); Red Cell Distribution Width 14.6 % (11.0-16.0)
[2020-07-19 16:07] LABS: Glucose Urine UA NEG (NEG); Leukocyte Esterase Urine 1+ (NEG); Nitrite Urine NEG (NEG); UACC Culture Trigger YES; Urine Blood NEG (NEG); Urine Ketones NEG (NEG); Urine Protein NEG (NEG-TRACE)
[2020-07-19 16:09] LABS: Appearance Urine CLOUDY; Color Urine YELLOW
[2020-07-19 16:10] LABS: INTERNATIONAL NORM RATIO 1.2 (0.9-1.1); Prothrombin Time 13.7 SEC (10.8-13.0)
[2020-07-19 16:11] LABS: UPreg QC Valid OK; Urine Pregnancy NEGATIVE (NEGATIVE)
[2020-07-19 16:18] LABS: RBC Urine 0 /HPF (0); Squamous Epithelial Cell Urine 4+ /LPF
[2020-07-19 16:19] LABS: Amorphous Sediment Urine 3+ /LPF
[2020-07-19 16:26] LABS: Ethanol < 10 mg/dL
[2020-07-19 16:29] LABS: Alanine Aminotransferase 15 U/L (0-31); Albumin Level 4.2 g/dL (3.5-5.0); Alkaline Phosphatase 74 U/L (39-117); Anion Gap 11 (12-20); Aspartate Amino Transferase 15 U/L (5-31); Bilirubin Direct < 0.2 mg/dL (0.0-0.5); Bilirubin Total 0.5 mg/dL (0.0-1.0); Blood Urea Nitrogen 12 mg/dL (9-16); C Reactive Protein 0.88 mg/dL (< or = 0.50); Calcium 9.2 mg/dL (8.4-10.2); Carbon Dioxide 24 mmol/L (22-29); Chloride 111 mmol/L (96-108); Estimated Glomerular Filt Rate > 60; Glucose Random 91 mg/dL (60-115); Lactate Dehydrogenase 168 U/L (122-220); Lipase 29 U/L (8-78); Magnesium 2.3 mg/dL (1.6-2.6); Potassium 4.3 mmol/L (3.3-5.1); Sodium 142 mmol/L (135-145)
[2020-07-19 16:42] LABS: Influenza A PCR NEGATIVE (Negative); Influenza B PCR NEGATIVE (Negative); Resp Syncy Virus RNA Qual PCR NEGATIVE (Negative); SARS COV2 PCR INHOUSE NEGATIVE (Negative)
[2020-07-19 16:48] LABS: Procalcitonin < 0.02 ng/mL
[2020-07-19 16:49] LABS: Ferritin 14 ng/mL (10-122)
[2020-07-19] MEDS: Ketorolac Tromethamine 30 MG/ML VIAL IVPUSH (16:54)
[2020-07-19] MEDS: ondansetron HCL 4 MG/2 ML VIAL IVPUSH (16:55)
[2020-07-19] MEDS: 0.9 % Sodium Chloride 1,000 ML 999 ML IVCONT (16:55)
[2020-07-19 16:56] VITALS: BMI 33.3
[2020-07-19] MEDS: Morphine Sulfate 4 MG/ML CARTRIDGE IVPUSH (19:14)
[2020-07-19 19:38] VITALS: BP 101/64; PULSE 66; RESP 16; TEMP 36.1; O2SAT 100
--- NOTE | 2020-07-19 19:39 | PC.NURSE ---
PT AWAITING FOR CTA. PT C/O PAIN TO CHEST AREA. PT MEDICATED FOR PAIN RATED 10/10. PT CALM AND COOPERATIVE IN NAD. RESPIRATIONS N/L. PT IS COVID NEG AND WITHOUT FEVER, REQUESTING BLANKET. PT IN NAD.
[2020-07-19] MEDS: iohexoL 350 MG/ML 100 ML INFUS..BTL IV (20:29)
== END 2020-07-19 21:31 | disposition home or self-care (01) ==
PROVIDERS: Physician Assistant Medical; Emergency Provider Emergency Medicine Emergency Medical Services
DX: K76.0 Fatty (change of) liver, not elsewhere classified (principal); K76.89 Other specified diseases of liver; R11.2 Nausea with vomiting, unspecified; Z20.822 Contact with and (suspected) exposure to COVID-19; I48.0 Paroxysmal atrial fibrillation
CPT/HCPCS: 0241U; 36415; 71045; 74177; 76700; 80048; 80076; 80320; 81001; 81003; 81025; 82728; 83615; 83690; 83735; 84145; 85025; 85610; 86140; 87086; 96361; 96374; 96375; 99284; J1885; J2270; J2405; Q9967

== ENCOUNTER 2020-08-14 17:38 | Emergency (ER) | payer OTHER, SELFPAY ==
[2020-08-14 20:35] VITALS: BP 128/85; PULSE 73; RESP 16; TEMP 36.6; O2SAT 100; BMI 33.3
--- NOTE | 2020-08-14 22:03 | ED_ITS ---
HPI - General Adult General Chief complaint: General Medical Stated complaint: Bodyaches/Fever Time Seen by Provider: 08/14/20 22:01 Source: patient Mode of arrival: ambulatory Limitations: no limitations History of Present Illness HPI narrative: Patient complaining of upper abdominal pain for last few days been here 3 times for similar complaints in last 2 months had ultrasound and CT scan done which was negative also complaining of nausea and vomiting vomited 4 times earlier today none in the ER patient states that her pain is same as before and has not got better since last ER visit Related Data Previous Rx's Medication Instructions Recorded ondansetron HCl [Zofran] 4 mg PO Q8H PRN #10 tab 07/05/20 ibuprofen 600 mg PO Q8H PRN #14 tab 07/19/20 ondansetron HCl [Zofran] 4 mg PO Q8H PRN #14 tab 07/19/20 oxycodone-acetaminophen [Percocet] 1 tab PO Q6H PRN #10 tab 07/19/20 dicyclomine 20 mg PO QID PRN #20 tab 08/14/20 lorazepam [Ativan] 1 mg PO BEDTIME PRN #14 tab 08/14/20 Allergies Allergy/AdvReac Type Severity Reaction Status Date / Time strawberry Allergy Anaphylaxis Verified 07/19/20 16:56 Review of Systems Review of Systems: Constitutional : No Weight loss, No Fever, No Chills ENT/Mouth : No sore throat, No Rhinorrhea Eyes: No Eye Pain, No Swelling Cardiovascular : No Chest Pain, no palpitations Respiratory : No Cough, No Sputum, no shortness of breath Gastrointestinal : + Nausea, + Vomiting, No Diarrhea, No abdominal Pain, no black stools Genitourinary : No Dysuria, No Urinary Frequency Musculoskeletal : No joint pain, No Myalgias, No Joint Swelling Skin : No Skin Lesions, No rash Neuro : No Weakness, No Numbness, No Dizziness, No Headache Psych : No Anxiety/Panic, No Depression Heme/Lymph: No Bruising, No Lymphadenopathy Endocrine : No Polyuria, No Polydipsia All other systems reviewed and are negative PMFSH Past Medical History Medical History Cholecystectomy planned Pancreatitis SVT (supraventricular tachycardia) Surgical History Tubal ligation status Social History Social History Alcohol intake: never Smoking Status: Never smoker Use of substances other than those prescribed or required for medical reasons: No Advance Directives: No Advance Directives Information Provided: No Physical Exam Vital Signs: Vital Signs: Last Vital Signs Temp 97.9 F 08/14/20 20:35 Pulse 73 08/14/20 20:35 Resp 16 08/14/20 20:35 BP 128/85 08/14/20 20:35 Pulse Ox 100 08/14/20 20:35 Body Mass Index 33.3 Appearance: Alert. Oriented X3. No acute distress. Eyes: Pupils equal, round and reactive to light. ENT: Pharynx normal. Neck: Normal inspection. Neck supple. CVS: Normal heart rate and rhythm. Pulses normal. Respiratory: No respiratory distress. Breath sounds normal. Abdomen: Soft mild diffuse tenderness no rebound tenderness or guarding, Bowel sounds are present, no mass palpable, no CVA tenderness Skin: Skin warm and dry. Normal skin color. Normal skin turgor. Extremities: No lower extremity edema. Neuro: Oriented X 3. No motor deficit. No sensory deficit. Medical Decision Making MDM Narrative Medical decision making narrative: Patient with the ADHD , anxiety been here multiple times for diffuse abdominal pain likely related to anxiety and IBS patient has a poor sleep does not any medication for anxiety previous CT scan ultrasound negative for any acute pathology patient admits anxiety brings of pain. Will discharge patient home on Ativan and Bentyl Lab Data Lab results reviewed: Yes I reviewed the patient's lab results. Labs: Lab Results 08/14/20 Range/Units 22:57 Urine Color YELLOW Urine Appearance HAZY Urine pH 6.5 (5.0-8.0) Ur Specific [place] 1.025 (1.005-1.025) Urine Protein NEG (NEG-TRACE) MG/DL Urine Glucose (UA) NEG (NEG) MG/DL Urine Ketones NEG (NEG) MG/DL Urine Blood NEG (NEG) Urine Nitrite NEG (NEG) Ur Leukocyte Esterase TRACE H (NEG) Urine RBC 0 (0) /HPF Urine WBC 1-4 (0-4) /HPF Ur Squamous Epith Cells 3+ /LPF Urine Bacteria TRACE /LPF Urine Mucus 2+ /LPF Discharge Plan Discharge Clinical Impression: Anxiety IBS (irritable bowel syndrome) Qualifiers: Irritable bowel syndrome type: unspecified Qualified Code(s): K58.9 - Irritable bowel syndrome without diarrhea Patient Disposition: Home, Self-Care Instructions: Irritable Bowel Syndrome (ED), Anxiety (ED) Additional Instructions: Drink plenty of fluids. Take medication as advised for anxiety and abdominal cramps. Follow-up with PCP Prescriptions: New dicyclomine 20 mg tablet 20 mg PO QID PRN (Reason: abdominal pain) Qty: 20 RF: 0 lorazepam [Ativan] 1 mg tablet 1 mg PO BEDTIME PRN (Reason: anxiety) Qty: 14 RF: 0 No Action ondansetron HCl [Zofran] 4 mg tablet 4 mg PO Q8H PRN (Reason: nausea and vomiting) Qty: 10 RF: 0 ibuprofen 800 mg tablet 600 mg PO Q8H PRN (Reason: pain) Qty: 14 RF: 0 ondansetron HCl [Zofran] 4 mg tablet 4 mg PO Q8H PRN (Reason: nausea and vomiting) Qty: 14 RF: 0 oxycodone-acetaminophen [Percocet] 5-325 mg tablet 1 tab PO Q6H PRN (Reason: pain) Qty: 10 RF: 0
[2020-08-14 23:05] LABS: Glucose Urine UA NEG (NEG); Leukocyte Esterase Urine TRACE (NEG); Nitrite Urine NEG (NEG); PH 6.5 (5.0-8.0); Specific Gravity - Urine 1.025 (1.005-1.025); UACC Culture Trigger YES; Urine Blood NEG (NEG); Urine Ketones NEG (NEG); Urine Protein NEG (NEG-TRACE)
[2020-08-14 23:06] LABS: Appearance Urine HAZY; Color Urine YELLOW
[2020-08-14 23:17] LABS: Bacteria Urine TRACE /LPF; Mucus Urine 2+ /LPF; RBC Urine 0 /HPF (0); Squamous Epithelial Cell Urine 3+ /LPF
[2020-08-14] MEDS: Dicyclomine HCl 10 MG CAPSULE 20 MG PO (23:33)
[2020-08-14] MEDS: LORazepam 1 MG TABLET PO (23:34)
== END 2020-08-14 23:36 | disposition home or self-care (01) ==
PROVIDERS: Emergency Provider Internal Medicine
DX: K58.9 Irritable bowel syndrome, unspecified (principal); R50.9 Fever, unspecified; M79.10 Myalgia, unspecified site; F41.1 Generalized anxiety disorder; F43.0 Acute stress reaction; Z79.899 Other long term (current) drug therapy
CPT/HCPCS: 81001; 81003; 87086; 99283; 99284

== ENCOUNTER 2020-10-08 16:37 | Emergency (ER) | payer OTHER, SELFPAY ==
--- NOTE | ~2020-10-08 | XR_ITS ---
EXAMINATION: XR CHEST CLINICAL INFORMATION: Chest pain COMPARISON: 07/19/2020 TECHNIQUE: Frontal view of the chest was obtained. FINDINGS: A metallic device overlies the hilum obscuring detail. No significant abnormality is noted involving the heart, lungs, mediastinum, bony thorax or soft tissues. XR/XR chest 1V IMPRESSION: Metallic device overlying left hilum. No acute intrathoracic disease detected.
[2020-10-08 17:35] VITALS: BP 112/81; PULSE 106; RESP 16; TEMP 36.9; O2SAT 98; BMI 33.3
--- NOTE | 2020-10-08 18:02 | ECG_ITS ---
Test Reason : CP Blood Pressure : / mmHG Vent. Rate : 106 BPM Atrial Rate : 106 BPM P-R Int : 150 ms QRS Dur : 084 ms QT Int : 336 ms P-R-T Axes : 067 067 038 degrees QTc Int : 446 ms Sinus tachycardia Otherwise normal ECG When compared with ECG of 05-JUL-2020 14:59, No significant change was found Referred By: Generic ED Physician Electronically Signed By:VANDANA ARRIAGA
[2020-10-08 19:18] LABS: MANUAL DIFF FLAG NO
[2020-10-08 19:19] LABS: Basophils Percent Auto 0.2 % (0-2); Eosinophils Absolute Auto 0.1 X10*3/uL (0.0-0.4); Eosinophils Percent Auto 1.3 % (0-4); Hematocrit 39.6 % (37-47); Hemoglobin 12.5 g/dl (12.0-16.0); Imm Gran Abs Auto 0.05 X10*3/uL (0.00-0.03); Imm Gran Pct Auto 0.5 % (0.0-0.4); Lymphocytes Percent Auto 29.9 % (20-40); Mean Corpuscular HGB Conc 31.6 g/dl (31.0-35.0); Mean Corpuscular Hemoglobin 26.7 pg (27.0-33.0); Mean Corpuscular Volume 84.6 fL (80-98); Mean Platelet Volume 8.8 fL (9.4-12.3); Monocytes Absolute Auto 0.4 X10*3/uL (0.1-1.2); Monocytes Percent Auto 3.7 % (2-11); Neutrophils Absolute Auto 6.5 X10*3/uL (2.0-8.3); Neutrophils Percent Auto 64.4 % (45-73); Platelet Count 319 X10*3/uL (160-400); Red Blood Count 4.68 X10*6/uL (4.20-5.50); Red Cell Distribution Width 14.1 % (11.0-16.0); White Blood Count 10.1 X10*3/uL (4.8-10.8)
[2020-10-08 19:40] LABS: Anion Gap 13 (12-20); Blood Urea Nitrogen 14 mg/dL (9-16); Calcium 9.2 mg/dL (8.4-10.2); Carbon Dioxide 21 mmol/L (22-29); Chloride 110 mmol/L (96-108); Creatinine Clr Calc Pharmacy 116.3; Estimated Glomerular Filt Rate > 60; Glucose Random 92 mg/dL (60-115); Potassium 4.1 mmol/L (3.3-5.1); Sodium 140 mmol/L (135-145)
[2020-10-08 19:50] LABS: Troponin-I High Sensitivity < 3.5 ng/L (<3.5-17.0)
--- NOTE | 2020-10-08 19:57 | ED_ITS ---
HPI - Chest Pain General Chief Complaint: Chest Pain <CASSIE Esquivel - Last Filed: 10/08/20 21:48> Stated Complaint: CHEST PAIN <CASSIE Esquivel - Last Filed: 10/08/20 21:48> Time Seen by Provider: 10/08/20 19:57 <CASSIE Esquivel - Last Filed: 10/08/20 21:48> Source: patient, RN notes reviewed and old records reviewed <DANIEL Esquivel - Last Filed: 10/08/20 21:48> Mode of arrival: ambulatory <CASSIE Esquivel - Last Filed: 10/08/20 21:48> Limitations: no limitations <CASSIE Esquivel - Last Filed: 10/08/20 21:48> History of Present Illness HPI narrative: 30-year-old female here today for complaining of epigastric pain. Patient was recently seen in the emergency room back in the beginning of August for upper abdominal discomfort. Had ultrasound done that was negative. Patient reports that the pain starts usually after she eats meals. It starts in the epigastric area and radiates up to the middle of the chest and middle of her back. Patient denies vomiting, reports some nausea. Was recently seen by transition program manager in [facility] and she was ordered RADHA monitor for 14 days. She states she put that on yesterday. Patient has a history of atrial fibrillation and SVT. Patient is not on any coagulation, chads Vasc score 0. <CASSIE Esquivel - Last Filed: 10/08/20 21:48> Related Data Home Medications: Previous Rx's Medication Instructions Recorded ondansetron HCl [Zofran] 4 mg PO Q8H PRN #10 tab 07/05/20 ibuprofen 600 mg PO Q8H PRN #14 tab 07/19/20 ondansetron HCl [Zofran] 4 mg PO Q8H PRN #14 tab 07/19/20 oxycodone-acetaminophen [Percocet] 1 tab PO Q6H PRN #10 tab 07/19/20 dicyclomine 20 mg PO QID PRN #20 tab 08/14/20 lorazepam [Ativan] 1 mg PO BEDTIME PRN #14 tab 08/14/20 omeprazole magnesium [Prilosec OTC] 20 mg PO DAILY #14 tab 10/08/20 <KUSUM Esquivel-BC - Last Filed: 10/08/20 21:48> Allergies/Adverse Reactions: Allergies Allergy/AdvReac Type Severity Reaction Status Date / Time strawberry Allergy Anaphylaxis Verified 07/19/20 16:56 <KUSUM Esquivel-BC - Last Filed: 10/08/20 21:48> FOR[facility]LY [facility] Past Medical History Medical History: Medical History Cholecystectomy planned Pancreatitis SVT (supraventricular tachycardia) <DANIEL EsquivelBC - Last Filed: 10/08/20 21:48> Surgical History: Surgical History Tubal ligation status <KUSUM Esquivel-BC - Last Filed: 10/08/20 21:48> Social History Social History: Social History Alcohol intake: never Smoking Status: Never smoker Advance Directives: No Advance Directives Information Provided: Yes Patient : No <DANIEL EsquivelBC - Last Filed: 10/08/20 21:48> Physical Exam Vital Signs: Vital Signs: Last Vital Signs Temp 98.3 F 10/08/20 20:05 Pulse 119 H 10/08/20 20:08 Resp 20 10/08/20 20:05 BP 99/68 10/08/20 20:08 Pulse Ox 97 10/08/20 20:05 Body Mass Index 33.3 <KUSUM Esquivel-BC - Last Filed: 10/08/20 21:48> Vital Signs: Last Vital Signs Temp 98.3 F 10/08/20 20:05 Pulse 119 H 10/08/20 20:08 Resp 20 10/08/20 20:05 BP 99/68 10/08/20 20:08 Pulse Ox 97 10/08/20 20:05 Body Mass Index 33.3 <Cameron Plummer NP - Last Filed: 10/08/20 22:11> Course Course Course Narrative: 30-year-old female here today with a past medical history of back pain, atrial fibrillation, asthma, fibromyalgia, paresthesia, SVT, pancreatitis, seen here in August for upper abdominal pain treated with Zofran sent home. CT scan from July of 2020 showed: mild diffuse fatty infiltration of the liver and a tiny subcentimeter hepatic cysts but no suspicious hepatic lesion gallbladder surgically absent, no acute intra-abdominal process . Patient has been experiencing upper epigastric like pain. Reports that she does not take any PPIs. Seen by Cardiology and event monitor was placed on her yesterday. Today's EKG as well as EKGs from past 2 years reviewed and no history of atrial fibrillation. Will order lab work. Medicate her with Protonix. And will re- evaluate <CASSIE Esquivel - Last Filed: 10/08/20 21:48> Reevaluation(s) Reevaluation #1: Patient denies any affect from Protonix. Will order her IV fluids and Zofran. Troponin is negative <CASSIE Esquivel - Last Filed: 10/08/20 21:48> Atypical chest pain likely GI epigastric any ideology. History of fibromyalgia. Overall nontoxic appearing. Will discharge home with PPI with plan for GI follow-up. Stable for discharge. <Cameron Plummer NP - Last Filed: 10/08/20 22:11> Reevaluation #2: Patient continues to complain of epigastric discomfort more prominent with palpation. Will add lipase and liver function studies today exam. Will order a UA to check for infection. I will also add Pepcid and GI cocktail to treatment. Patient is agreeable to plan of care and verbalizes understanding. <CASSIE Esquivel - Last Filed: 10/08/20 21:48> MDM - Chest Pain Lab Data Result diagrams: : 10/08/20 19:12 10/08/20 19:12 <CASSIE Esquivel - Last Filed: 10/08/20 21:48> Labs: Lab Results 10/08/20 10/08/20 10/08/20 Range/Units 19:12 19:12 19:12 WBC 10.1 (4.8-10.8) X10*3/uL RBC 4.68 (4.20-5.50) X10*6/uL Hgb 12.5 (12.0-16.0) g/dl Hct 39.6 (37-47) % MCV 84.6 (80-98) fL MCH 26.7 L (27.0-33.0) pg MCHC 31.6 (31.0-35.0) g/dl RDW 14.1 (11.0-16.0) % Plt Count 319 (160-400) X10*3/uL MPV 8.8 L (9.4-12.3) fL Immature Gran % (Auto) 0.5 H (0.0-0.4) % Neut % (Auto) 64.4 (45-73) % Lymph % (Auto) 29.9 (20-40) % [place] % (Auto) 3.7 (2-11) % Eos % (Auto) 1.3 (0-4) % Baso % (Auto) 0.2 (0-2) % Lymph # (Auto) 3.0 (1.2-4.9) X10*3/uL [place] # (Auto) 0.4 (0.1-1.2) X10*3/uL Eos # (Auto) 0.1 (0.0-0.4) X10*3/uL Baso # (Auto) 0.0 (0.0-0.2) X10*3/uL Abs Immat Gran (auto) 0.05 H (0.00-0.03) X10*3/uL Absolute Neuts (auto) 6.5 (2.0-8.3) X10*3/uL Absolute Nucleated RBC 0.000 (0.0-0.012) X10*3/uL Nucleated RBC % (auto) 0.0 (0.0-0.2) /100WBC Hold Blue Top SEE NOTE Sodium 140 (135-145) mmol/L Potassium 4.1 (3.3-5.1) mmol/L Chloride 110 H (96-108) mmol/L Carbon Dioxide 21 L (22-29) mmol/L Anion Gap 13 (12-20) BUN 14 (9-16) mg/dL Creatinine 0.78 (0.5-1.4) mg/dL Estim Creat Clear Calc 116.3 Estimated GFR > 60 Random Glucose 92 (60-115) mg/dL Calcium 9.2 (8.4-10.2) mg/dL Total Bilirubin 0.3 (0.0-1.0) mg/dL Direct Bilirubin < 0.2 (0.0-0.5) mg/dL AST 13 (5-31) U/L ALT 17 (0-31) U/L Alkaline Phosphatase 86 (39-117) U/L Troponin I High Sens (<3.5-17.0) ng/L Total Protein 7.0 (6.5-8.0) g/dL Albumin 4.2 (3.5-5.0) g/dL Lipase 26 (8-78) U/L Urine Color Urine Appearance Urine pH (5.0-8.0) Ur Specific [place] (1.005-1.025) Urine Protein (NEG-TRACE) MG/DL Urine Glucose (UA) (NEG) MG/DL Urine Ketones (NEG) MG/DL Urine Blood (NEG) Urine Nitrite (NEG) Ur Leukocyte Esterase (NEG) Urine RBC (0) /HPF Urine WBC (0-4) /HPF Ur Squamous Epith Cells /LPF Urine Bacteria /LPF Urine Test (NEGATIVE) 10/08/20 10/08/20 10/08/20 Range/Units 19:12 21:41 21:41 WBC (4.8-10.8) X10*3/uL RBC (4.20-5.50) X10*6/uL Hgb (12.0-16.0) g/dl Hct (37-47) % MCV (80-98) fL MCH (27.0-33.0) pg MCHC (31.0-35.0) g/dl RDW (11.0-16.0) % Plt Count (160-400) X10*3/uL MPV (9.4-12.3) fL Immature Gran % (Auto) (0.0-0.4) % Neut % (Auto) (45-73) % Lymph % (Auto) (20-40) % [place] % (Auto) (2-11) % Eos % (Auto) (0-4) % Baso % (Auto) (0-2) % Lymph # (Auto) (1.2-4.9) X10*3/uL [place] # (Auto) (0.1-1.2) X10*3/uL Eos # (Auto) (0.0-0.4) X10*3/uL Baso # (Auto) (0.0-0.2) X10*3/uL Abs Immat Gran (auto) (0.00-0.03) X10*3/uL Absolute Neuts (auto) (2.0-8.3) X10*3/uL Absolute Nucleated RBC (0.0-0.012) X10*3/uL Nucleated RBC % (auto) (0.0-0.2) /100WBC Hold Blue Top Sodium (135-145) mmol/L Potassium (3.3-5.1) mmol/L Chloride (96-108) mmol/L Carbon Dioxide (22-29) mmol/L Anion Gap (12-20) BUN (9-16) mg/dL Creatinine (0.5-1.4) mg/dL Estim Creat Clear Calc Estimated GFR Random Glucose (60-115) mg/dL Calcium (8.4-10.2) mg/dL Total Bilirubin (0.0-1.0) mg/dL Direct Bilirubin (0.0-0.5) mg/dL AST (5-31) U/L ALT (0-31) U/L Alkaline Phosphatase (39-117) U/L Troponin I High Sens < 3.5 (<3.5-17.0) ng/L Total Protein (6.5-8.0) g/dL Albumin (3.5-5.0) g/dL Lipase (8-78) U/L Urine Color YELLOW Urine Appearance HAZY Urine pH 6.0 (5.0-8.0) Ur Specific [place] >= 1.030 H (1.005-1.025) Urine Protein NEG (NEG-TRACE) MG/DL Urine Glucose (UA) NEG (NEG) MG/DL Urine Ketones NEG (NEG) MG/DL Urine Blood NEG (NEG) Urine Nitrite NEG (NEG) Ur Leukocyte Esterase 1+ H (NEG) Urine RBC 0 (0) /HPF Urine WBC 0-2 (0-4) /HPF Ur Squamous Epith Cells 3+ /LPF Urine Bacteria 2+ /LPF Urine Test NEGATIVE (NEGATIVE) <Megan Li, SUPERINTENDENT MAINTENANCE-BC - Last Filed: 10/08/20 21:48> Lab Results 10/08/20 10/08/20 10/08/20 Range/Units 19:12 19:12 19:12 WBC 10.1 (4.8-10.8) X10*3/uL RBC 4.68 (4.20-5.50) X10*6/uL Hgb 12.5 (12.0-16.0) g/dl Hct 39.6 (37-47) % MCV 84.6 (80-98) fL MCH 26.7 L (27.0-33.0) pg MCHC 31.6 (31.0-35.0) g/dl RDW 14.1 (11.0-16.0) % Plt Count 319 (160-400) X10*3/uL MPV 8.8 L (9.4-12.3) fL Immature Gran % (Auto) 0.5 H (0.0-0.4) % Neut % (Auto) 64.4 (45-73) % Lymph % (Auto) 29.9 (20-40) % [place] % (Auto) 3.7 (2-11) % Eos % (Auto) 1.3 (0-4) % Baso % (Auto) 0.2 (0-2) % Lymph # (Auto) 3.0 (1.2-4.9) X10*3/uL [place] # (Auto) 0.4 (0.1-1.2) X10*3/uL Eos # (Auto) 0.1 (0.0-0.4) X10*3/uL Baso # (Auto) 0.0 (0.0-0.2) X10*3/uL Abs Immat Gran (auto) 0.05 H (0.00-0.03) X10*3/uL Absolute Neuts (auto) 6.5 (2.0-8.3) X10*3/uL Absolute Nucleated RBC 0.000 (0.0-0.012) X10*3/uL Nucleated RBC % (auto) 0.0 (0.0-0.2) /100WBC Hold Blue Top SEE NOTE Sodium 140 (135-145) mmol/L Potassium 4.1 (3.3-5.1) mmol/L Chloride 110 H (96-108) mmol/L Carbon Dioxide 21 L (22-29) mmol/L Anion Gap 13 (12-20) BUN 14 (9-16) mg/dL Creatinine 0.78 (0.5-1.4) mg/dL Estim Creat Clear Calc 116.3 Estimated GFR > 60 Random Glucose 92 (60-115) mg/dL Calcium 9.2 (8.4-10.2) mg/dL Total Bilirubin 0.3 (0.0-1.0) mg/dL Direct Bilirubin < 0.2 (0.0-0.5) mg/dL AST 13 (5-31) U/L ALT 17 (0-31) U/L Alkaline Phosphatase 86 (39-117) U/L Troponin I High Sens (<3.5-17.0) ng/L Total Protein 7.0 (6.5-8.0) g/dL Albumin 4.2 (3.5-5.0) g/dL Lipase 26 (8-78) U/L Urine Color Urine Appearance Urine pH (5.0-8.0) Ur Specific [place] (1.005-1.025) Urine Protein (NEG-TRACE) MG/DL Urine Glucose (UA) (NEG) MG/DL Urine Ketones (NEG) MG/DL Urine Blood (NEG) Urine Nitrite (NEG) Ur Leukocyte Esterase (NEG) Urine RBC (0) /HPF Urine WBC (0-4) /HPF Ur Squamous Epith Cells /LPF Urine Bacteria /LPF Urine Test (NEGATIVE) 10/08/20 10/08/20 10/08/20 Range/Units 19:12 21:41 21:41 WBC (4.8-10.8) X10*3/uL RBC (4.20-5.50) X10*6/uL Hgb (12.0-16.0) g/dl Hct (37-47) % MCV (80-98) fL MCH (27.0-33.0) pg MCHC (31.0-35.0) g/dl RDW (11.0-16.0) % Plt Count (160-400) X10*3/uL MPV (9.4-12.3) fL Immature Gran % (Auto) (0.0-0.4) % Neut % (Auto) (45-73) % Lymph % (Auto) (20-40) % [place] % (Auto) (2-11) % Eos % (Auto) (0-4) % Baso % (Auto) (0-2) % Lymph # (Auto) (1.2-4.9) X10*3/uL [place] # (Auto) (0.1-1.2) X10*3/uL Eos # (Auto) (0.0-0.4) X10*3/uL Baso # (Auto) (0.0-0.2) X10*3/uL Abs Immat Gran (auto) (0.00-0.03) X10*3/uL Absolute Neuts (auto) (2.0-8.3) X10*3/uL Absolute Nucleated RBC (0.0-0.012) X10*3/uL Nucleated RBC % (auto) (0.0-0.2) /100WBC Hold Blue Top Sodium (135-145) mmol/L Potassium (3.3-5.1) mmol/L Chloride (96-108) mmol/L Carbon Dioxide (22-29) mmol/L Anion Gap (12-20) BUN (9-16) mg/dL Creatinine (0.5-1.4) mg/dL Estim Creat Clear Calc Estimated GFR Random Glucose (60-115) mg/dL Calcium (8.4-10.2) mg/dL Total Bilirubin (0.0-1.0) mg/dL Direct Bilirubin (0.0-0.5) mg/dL AST (5-31) U/L ALT (0-31) U/L Alkaline Phosphatase (39-117) U/L Troponin I High Sens < 3.5 (<3.5-17.0) ng/L Total Protein (6.5-8.0) g/dL Albumin (3.5-5.0) g/dL Lipase (8-78) U/L Urine Color YELLOW Urine Appearance HAZY Urine pH 6.0 (5.0-8.0) Ur Specific [place] >= 1.030 H (1.005-1.025) Urine Protein NEG (NEG-TRACE) MG/DL Urine Glucose (UA) NEG (NEG) MG/DL Urine Ketones NEG (NEG) MG/DL Urine Blood NEG (NEG) Urine Nitrite NEG (NEG) Ur Leukocyte Esterase 1+ H (NEG) Urine RBC 0 (0) /HPF Urine WBC 0-2 (0-4) /HPF Ur Squamous Epith Cells 3+ /LPF Urine Bacteria 2+ /LPF Urine Test NEGATIVE (NEGATIVE) <Cameron Plummer NP - Last Filed: 10/08/20 22:11> Discharge Plan Discharge Clinical Impression: Atypical chest pain <CASSIE Esquivel - Last Filed: 10/08/20 21:48> Patient Disposition: Home, Self-Care <CASSIE Esquivel - Last Filed: 10/08/20 21:48> Instructions: Chest Pain (ED) <CASSIE Esquivel - Last Filed: 10/08/20 21:48> Additional Instructions: [place] diet Take her antacid medication prescribed Follow-up with GI doctor as discussed Thank you <CASSIE Esquivel - Last Filed: 10/08/20 21:48> Prescriptions: New omeprazole magnesium [Prilosec OTC] 20 mg tablet,delayed release (DR/EC) 20 mg PO DAILY Qty: 14 RF: 0 No Action ondansetron HCl [Zofran] 4 mg tablet 4 mg PO Q8H PRN (Reason: nausea and vomiting) Qty: 10 RF: 0 ibuprofen 800 mg tablet 600 mg PO Q8H PRN (Reason: pain) Qty: 14 RF: 0 ondansetron HCl [Zofran] 4 mg tablet 4 mg PO Q8H PRN (Reason: nausea and vomiting) Qty: 14 RF: 0 oxycodone-acetaminophen [Percocet] 5-325 mg tablet 1 tab PO Q6H PRN (Reason: pain) Qty: 10 RF: 0 dicyclomine 20 mg tablet 20 mg PO QID PRN (Reason: abdominal pain) Qty: 20 RF: 0 lorazepam [Ativan] 1 mg tablet 1 mg PO BEDTIME PRN (Reason: anxiety) Qty: 14 RF: 0 <CASSIE Esquivel - Last Filed: 10/08/20 21:48> Referrals: Kenisha Meza MD [Physician] - 1 week <CASSIE Esquivel - Last Filed: 10/08/20 21:48>
--- NOTE | 2020-10-08 20:00 | PC.NURSE ---
ADAM Li to bedside for primary ED provider evaluation. Provider discussed lab results with patient and EKG results. Pt reports that pain radiates transversely to her back. Pt has a metal heart monitor to left side of chest, shown on X-ray. Pt placed this monitor yesterday as directed by a account collector in [place], [place]. Plan for orthostatic vital signs and obtaining IV access with continued monitoring.
[2020-10-08 20:05] VITALS: BP 114/73; PULSE 111; RESP 20; TEMP 36.8; O2SAT 97
[2020-10-08 20:06] VITALS: BP 104/71; PULSE 104
[2020-10-08 20:07] VITALS: BP 114/73; PULSE 116
[2020-10-08 20:08] VITALS: BP 99/68; PULSE 119
[2020-10-08] MEDS: 0.9 % Sodium Chloride 1,000 ML 999 ML IV (20:24)
[2020-10-08] MEDS: Pantoprazole Sodium 40 MG/10 ML VIAL IVPUSH (20:24)
--- NOTE | 2020-10-08 20:59 | PC.NURSE ---
Patient reports that Protonix & fluids were ineffective for pain, nausea, & dizziness. Provider aware. Plan to medicate with domingo Darnell NP. Pt agreeable to plan of care.
[2020-10-08] MEDS: ondansetron HCL 4 MG/2 ML VIAL IVPUSH (21:11)
[2020-10-08] MEDS: Famotidine/PF 20 MG/2 ML VIAL IVPUSH (21:44)
[2020-10-08] MEDS: Magnesium Hydrox/Alum Hydrox 30 ML ORAL.SUSP 15 ML PO (21:44)
[2020-10-08] MEDS: PHENobarb/Hyoscy/Atropine/Scop 10 ML ELIXIR PO (21:44)
[2020-10-08] MEDS: Lidocaine HCl Viscous 2 % 15 ML SOLUTION MUCOUS MEM (21:44)
[2020-10-08 21:50] LABS: Glucose Urine UA NEG (NEG); Leukocyte Esterase Urine 1+ (NEG); Nitrite Urine NEG (NEG); Specific Gravity - Urine >= 1.030 (1.005-1.025); UACC Culture Trigger YES; Urine Blood NEG (NEG); Urine Ketones NEG (NEG); Urine Protein NEG (NEG-TRACE)
[2020-10-08 21:51] LABS: Appearance Urine HAZY; Color Urine YELLOW
[2020-10-08 21:52] LABS: UPreg QC Valid YES; Urine Pregnancy NEGATIVE (NEGATIVE)
[2020-10-08 21:57] LABS: Bacteria Urine 2+ /LPF; RBC Urine 0 /HPF (0); Squamous Epithelial Cell Urine 3+ /LPF; WBC Urine 0-2 /HPF (0-4)
[2020-10-08 21:58] LABS: Alanine Aminotransferase 17 U/L (0-31); Albumin Level 4.2 g/dL (3.5-5.0); Alkaline Phosphatase 86 U/L (39-117); Aspartate Amino Transferase 13 U/L (5-31); Bilirubin Direct < 0.2 mg/dL (0.0-0.5); Bilirubin Total 0.3 mg/dL (0.0-1.0); Lipase 26 U/L (8-78)
== END 2020-10-08 22:55 | disposition home or self-care (01) ==
PROVIDERS: Nurse Practitioner Family; Emergency Provider Internal Medicine
DX: R07.89 Other chest pain (principal); R10.13 Epigastric pain; Z79.899 Other long term (current) drug therapy
CPT/HCPCS: 36415; 71045; 80048; 80076; 81001; 81003; 81025; 83690; 84484; 85025; 87086; 93005; 96365; 96375; 99284; J2405

== ENCOUNTER 2020-10-15 14:31 | Emergency (ER) | payer OTHER, SELFPAY ==
--- NOTE | ~2020-10-15 | XR_ITS ---
EXAMINATION: XR ANKLE, RIGHT CLINICAL INFORMATION: Ankle pain COMPARISON: None TECHNIQUE: AP, lateral, and mortise views of the right ankle. FINDINGS: There is no fracture, dislocation, destructive process, or visible ankle capsular effusion. The malleoli are intact and the ankle mortise is symmetric. Talar dome shows no osteochondral lesion. The retrocalcaneal recess is preserved. There are borderline posterior and plantar calcaneal spurs. XR/XR ankle RT min 3V IMPRESSION: 1. No fracture, destructive process, or arthropathy. 2. Small posterior and plantar calcaneal spurs.
--- NOTE | ~2020-10-15 | XR_ITS ---
EXAMINATION: XR FOOT, RIGHT CLINICAL INFORMATION: Twisted ankle with foot pain COMPARISON: Ankle films earlier today TECHNIQUE: AP, lateral, and oblique views of the right foot. FINDINGS: The bones and soft tissues are normal. No fracture. Alignment is anatomic. Joint spaces are maintained. XR/XR foot RT min 3V IMPRESSION: Normal right foot.
[2020-10-15 14:42] VITALS: BP 114/82; PULSE 100; RESP 18; TEMP 36.3; O2SAT 99; BMI 33.3
--- NOTE | 2020-10-15 17:25 | ED.LOWEXIN ---
HPI - Extremity Injury (Lower) General Chief Complaint: Extremity Injury, Lower Stated Complaint: L ANKLE INJ Time Seen by Provider: 10/15/20 17:06 Source: patient Mode of arrival: ambulatory History of Present Illness HPI Narrative: 30-year-old female with a past medical history of pancreatitis, SVT, tubal ligation, presenting to the ED complaining right ankle pain s/p rolling ankle yesterday. Denies direct trauma/injury or crushing, numbness, tingling, weakness. Has been ambulatory with pain MD complaint: ankle injury Related Data Previous Rx's Medication Instructions Recorded ondansetron HCl [Zofran] 4 mg PO Q8H PRN #10 tab 07/05/20 ibuprofen 600 mg PO Q8H PRN #14 tab 07/19/20 ondansetron HCl [Zofran] 4 mg PO Q8H PRN #14 tab 07/19/20 oxycodone-acetaminophen [Percocet] 1 tab PO Q6H PRN #10 tab 07/19/20 dicyclomine 20 mg PO QID PRN #20 tab 08/14/20 lorazepam [Ativan] 1 mg PO BEDTIME PRN #14 tab 08/14/20 omeprazole magnesium [Prilosec OTC] 20 mg PO DAILY #14 tab 10/08/20 Allergies Allergy/AdvReac Type Severity Reaction Status Date / Time strawberry Allergy Anaphylaxis Verified 10/15/20 14:44 Review of Systems Review of Systems: Constitutional: No Fever, No Chills Musculoskeletal: + joint pain, No Myalgias, No Joint Swelling Skin: No Skin Lesions, No rash Neuro: No Weakness, No Numbness, No Paresthesias Yes all other systems are reviewed and are negative PMFSH Past Medical History Attestation statement: The following information was validated with the patient. Medical History Cholecystectomy planned Pancreatitis SVT (supraventricular tachycardia) Surgical History Tubal ligation status Social History Social History Alcohol intake: never Smoking Status: Never smoker Advance Directives: No Advance Directives Information Provided: Yes Patient : No Physical Exam Vital Signs: Vital Signs: Last Vital Signs Temp 97.3 F 10/15/20 14:42 Pulse 100 10/15/20 14:42 Resp 18 10/15/20 14:42 BP 114/82 10/15/20 14:42 Pulse Ox 99 10/15/20 14:42 Body Mass Index 33.3 Const: General: cooperative, healthy appearing and no acute distress Orientation/consciousness: patient oriented x3 Limitations: no limitations HENMT: Head: Yes normal to inspection Ears: hearing grossly normal bilaterally General nose exam: Normal external nose present Face and sinus: Yes normal facial exam Eyes: General: appearance normal, both eyes and all related structures EOM: EOMs intact bilaterally Neck: Neck: Yes normal visual inspection Resp: Effort & Inspection: normal respiratory effort Cardio: Rate: regular rate Peripheral pulses: dorsalis pedis present Skin: Rashes: no rashes Wounds: no wounds Neuro: General: patient oriented x3, tone normal and moves all extremities Extrem: Other: Right ankle with mild swelling and +ttp. Proximal right foot with notable tenderness to palpation. No appreciable bony deformity. Neurovascularly intact, sensation intact to light touch. Limited ROM of ankle secondary to pain Course Course Course Narrative: XR ankle RT min 3V IMPRESSION: 1. No fracture, destructive process, or arthropathy. 2. Small posterior and plantar calcaneal spurs. XR foot RT min 3V IMPRESSION: Normal right foot. >> patient placed in Aircast to follow-up with PCP. MDM - Extremity Injury (Lower) MDM Narrative Medical decision making narrative: 30-year-old female with a past medical history of pancreatitis, SVT, tubal ligation, presenting to the ED complaining right ankle pain s/p rolling ankle yesterday. Rule out fracture/dislocation versus sprain Plan: X-rays Medical Records Attestation: I reviewed the patient's medical records. Discharge Plan Discharge Clinical Impression: Ankle sprain Qualifiers: Encounter type: initial encounter Involved ligament of ankle: unspecified ligament Laterality: right Qualified Code(s): S93.401A - Sprain of unspecified ligament of right ankle, initial encounter Patient Disposition: Home, Self-Care Instructions: Ankle Sprain (ED) Additional Instructions: Your x-rays are unremarkable today in the ED. Wear Aircast at home as needed for stability/comfort. Bear weight as tolerated Ice, elevate, take Tylenol and Motrin for pain/swelling Follow up with her doctor Prescriptions: No Action ondansetron HCl [Zofran] 4 mg tablet 4 mg PO Q8H PRN (Reason: nausea and vomiting) Qty: 10 RF: 0 ibuprofen 800 mg tablet 600 mg PO Q8H PRN (Reason: pain) Qty: 14 RF: 0 ondansetron HCl [Zofran] 4 mg tablet 4 mg PO Q8H PRN (Reason: nausea and vomiting) Qty: 14 RF: 0 oxycodone-acetaminophen [Percocet] 5-325 mg tablet 1 tab PO Q6H PRN (Reason: pain) Qty: 10 RF: 0 dicyclomine 20 mg tablet 20 mg PO QID PRN (Reason: abdominal pain) Qty: 20 RF: 0 lorazepam [Ativan] 1 mg tablet 1 mg PO BEDTIME PRN (Reason: anxiety) Qty: 14 RF: 0 omeprazole magnesium [Prilosec OTC] 20 mg tablet,delayed release (DR/EC) 20 mg PO DAILY Qty: 14 RF: 0 Referrals: Physician,Unknown [Primary Care Provider] - 1 week
== END 2020-10-15 19:38 | disposition home or self-care (01) ==
PROVIDERS: Emergency Provider Internal Medicine
DX: S93.401A Sprain of unspecified ligament of right ankle, initial encounter (principal); M25.571 Pain in right ankle and joints of right foot; X50.1XXA Overexertion from prolonged static or awkward postures, initial encounter; Y93.9 Activity, unspecified; Y92.9 Unspecified place or not applicable; Y99.9 Unspecified external cause status; Z79.899 Other long term (current) drug therapy
CPT/HCPCS: 73610; 73630; 99283

== ENCOUNTER 2020-12-20 14:50 | Emergency (ER) | payer OTHER, SELFPAY ==
--- NOTE | ~2020-12-20 | XR_ITS ---
EXAMINATION: LEFT HAND AND WRIST. CLINICAL INFORMATION: Status post injury. Pain COMPARISON: None TECHNIQUE: 4 views. FINDINGS: There is no visible acute fracture, dislocation or subluxation. The soft tissues are normal. XR/XR hand wrist LT IMPRESSION: Unremarkable left hand/wrist exam.
[2020-12-20 14:55] VITALS: BP 108/67; PULSE 116; RESP 16; TEMP 35.9; O2SAT 99; BMI 33.3
--- NOTE | 2020-12-20 15:34 | ED.EXTPRO ---
HPI - Extremity Problem General Chief complaint: Extremity Injury, Upper Stated complaint: lt wrist injury - work related Time Seen by Provider: 12/20/20 15:02 Related Data Previous Rx's Medication Instructions Recorded ondansetron HCl [Zofran] 4 mg PO Q8H PRN #10 tab 07/05/20 ibuprofen 600 mg PO Q8H PRN #14 tab 07/19/20 ondansetron HCl [Zofran] 4 mg PO Q8H PRN #14 tab 07/19/20 oxycodone-acetaminophen [Percocet] 1 tab PO Q6H PRN #10 tab 07/19/20 dicyclomine 20 mg PO QID PRN #20 tab 08/14/20 lorazepam [Ativan] 1 mg PO BEDTIME PRN #14 tab 08/14/20 omeprazole magnesium [Prilosec OTC] 20 mg PO DAILY #14 tab 10/08/20 ibuprofen 600 mg PO Q8H PRN #20 tab 12/20/20 Allergies Allergy/AdvReac Type Severity Reaction Status Date / Time strawberry Allergy Anaphylaxis Verified 12/20/20 14:54 Review of Systems Constitutional: Constitutional: Denies weight gain and Denies weight loss Cardiovascular: Cardiovascular: Reports no additional cardiovascular complaints Respiratory: Respiratory: Reports no additional respiratory complaints Gastrointestinal: Gastrointestinal: Denies abdominal pain, Denies belching, Denies melena, Denies bloating, Denies change in bowel habits, Denies dyspepsia, Denies heartburn, Denies nausea and Denies vomiting Musculoskeletal: Musculoskeletal: Reports arthralgias (Left wrist) Neurologic: Reports system reviewed and no additional complaints, except as documented Psychiatric: Psychiatric: Reports no additional psychiatric complaints PMFSH Past Medical History Medical History Cholecystectomy planned Pancreatitis SVT (supraventricular tachycardia) Surgical History Tubal ligation status Social History Social History Alcohol intake: never Advance Directives: No Advance Directives Information Provided: Yes Patient : No Physical Exam Vital Signs: Vital Signs: Last Vital Signs Temp 96.6 F L 12/20/20 14:55 Pulse 116 H 12/20/20 14:55 Resp 16 12/20/20 14:55 BP 108/67 12/20/20 14:55 Pulse Ox 99 12/20/20 14:55 Body Mass Index 33.3 Const: General: healthy appearing, no acute distress and well developed Nutritional Appearance: well nourished Orientation/consciousness: patient oriented x3 Neck: Neck: Yes normal visual inspection, Yes full ROM and Yes trachea midline Thyroid: Thyroid normal Resp: Auscultation: clear to auscultation bilaterally Cardio: Rate: regular rate Rhythm: regular rhythm GI: Inspection: Yes normal to inspection and No distended Palpation (GI): No hepatosplenomegaly present Auscultation: normal bowel sounds Skin: General skin exam: elasticity normal, turgor normal and dry skin Neuro: General: patient oriented x3 Extrem: General: Yes full ROM (Painful) Right upper extremity: wrist (Painful ROM) Course Course Course Narrative: Patient work as a [employer]AV[employer], 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 Happen yesterday afternoon. Patient reports that she a has lot of pain was unable to rest at night. No visible swelling. Patient complains of pain during exam when performing ROM. Will order x-ray. Reports pain 10/10. Full medicate her with oxycodone and ibuprofen. Reevaluation(s) Reevaluation #1: X-ray negative for fracture, dislocation or subluxation. Normal soft tissues. Will send patient home with ibuprofen. Rest and ice MDM - Extremity (Nontraumatic) Imaging Data Left wrist x-ray: Radiologist's impression: FINDINGS: There is no visible acute fracture, dislocation or subluxation. The soft tissues are normal. Discharge Plan Discharge Clinical Impression: Sprain and strain of wrist Patient Disposition: Home, Self-Care Instructions: Wrist Sprain (ED) Additional Instructions: You were seen here today after sustaining injury to your left wrist. Your x-ray was negative for any dislocation or any soft tissue swelling. Please ice the injured area for the next 3 days. You can take ibuprofen. Please follow-up with your PCP. He may return to emergency department if you experience any concerning symptoms Prescriptions: New ibuprofen 600 mg tablet 600 mg PO Q8H PRN (Reason: pain) Qty: 20 RF: 0 No Action ondansetron HCl [Zofran] 4 mg tablet 4 mg PO Q8H PRN (Reason: nausea and vomiting) Qty: 10 RF: 0 ibuprofen 800 mg tablet 600 mg PO Q8H PRN (Reason: pain) Qty: 14 RF: 0 ondansetron HCl [Zofran] 4 mg tablet 4 mg PO Q8H PRN (Reason: nausea and vomiting) Qty: 14 RF: 0 oxycodone-acetaminophen [Percocet] 5-325 mg tablet 1 tab PO Q6H PRN (Reason: pain) Qty: 10 RF: 0 dicyclomine 20 mg tablet 20 mg PO QID PRN (Reason: abdominal pain) Qty: 20 RF: 0 lorazepam [Ativan] 1 mg tablet 1 mg PO BEDTIME PRN (Reason: anxiety) Qty: 14 RF: 0 omeprazole magnesium [Prilosec OTC] 20 mg tablet,delayed release (DR/EC) 20 mg PO DAILY Qty: 14 RF: 0 Stand Alone Forms: Work/School Release
[2020-12-20] MEDS: oxyCODONE HCl Immed Release 5 MG TABLET PO (15:49)
[2020-12-20] MEDS: Ibuprofen 600 MG TABLET PO (15:49)
== END 2020-12-20 15:59 | disposition home or self-care (01) ==
PROVIDERS: Emergency Provider Emergency Medicine; PCP Family Medicine Geriatric Medicine
DX: S63.502A Unspecified sprain of left wrist, initial encounter (principal); S66.912A Strain of unspecified muscle, fascia and tendon at wrist and hand level, left hand, initial encounter; W18.2XXA Fall in (into) shower or empty bathtub, initial encounter; Y93.E9 Activity, other interior property and clothing maintenance; Y92.89 Other specified places as the place of occurrence of the external cause; Y99.0 Civilian activity done for income or pay
CPT/HCPCS: 73110; 73130; 99283; 99284

== ENCOUNTER 2021-01-07 22:56 | Emergency (ER) | payer OTHER, SELFPAY ==
--- NOTE | ~2021-01-07 | XR_ITS ---
EXAMINATION: XR CHEST CLINICAL INFORMATION: Chest pain COMPARISON: 10/08/2020 TECHNIQUE: Frontal view of the chest was obtained. FINDINGS: Normal symmetric lung volumes. No parenchymal consolidation. No pleural effusion. No pneumothorax. Cardiomediastinal silhouette and pulmonary vascularity are within normal limits. No acute osseous abnormalities. XR/XR chest 1V IMPRESSION: Normal radiographic appearance of the chest
[2021-01-07 23:09] VITALS: BP 120/87; PULSE 95; RESP 16; TEMP 36.3; O2SAT 99; BMI 33.3
--- NOTE | 2021-01-07 23:18 | ECG_ITS ---
Test Reason : CHEST PAIN Blood Pressure : / mmHG Vent. Rate : 093 BPM Atrial Rate : 093 BPM P-R Int : 152 ms QRS Dur : 084 ms QT Int : 374 ms P-R-T Axes : 023 044 041 degrees QTc Int : 465 ms Normal sinus rhythm Normal ECG When compared with ECG of 08-OCT-2020 16:44, No significant change was found Referred By: Generic ED Physician Electronically Signed By:Adrian Cifuentes
[2021-01-07 23:41] LABS: MANUAL DIFF FLAG NO
[2021-01-07 23:42] LABS: Basophils Percent Auto 0.3 % (0-2); Eosinophils Absolute Auto 0.1 X10*3/uL (0.0-0.4); Eosinophils Percent Auto 1.4 % (0-4); Hematocrit 36.2 % (37-47); Hemoglobin 11.5 g/dl (12.0-16.0); Imm Gran Abs Auto 0.04 X10*3/uL (0.00-0.03); Imm Gran Pct Auto 0.4 % (0.0-0.4); Lymphocytes Absolute Auto 2.8 X10*3/uL (1.2-4.9); Mean Corpuscular HGB Conc 31.8 g/dl (31.0-35.0); Mean Corpuscular Hemoglobin 26.4 pg (27.0-33.0); Mean Corpuscular Volume 83.2 fL (80-98); Mean Platelet Volume 8.9 fL (9.4-12.3); Monocytes Absolute Auto 0.4 X10*3/uL (0.1-1.2); Monocytes Percent Auto 4.2 % (2-11); Neutrophils Absolute Auto 6.7 X10*3/uL (2.0-8.3); Neutrophils Percent Auto 65.7 % (45-73); Platelet Count 352 X10*3/uL (160-400); Red Blood Count 4.35 X10*6/uL (4.20-5.50); Red Cell Distribution Width 14.5 % (11.0-16.0); White Blood Count 10.1 X10*3/uL (4.8-10.8)
[2021-01-08 00:04] LABS: Anion Gap 13 (12-20); Blood Urea Nitrogen 9 mg/dL (9-16); Calcium 9.1 mg/dL (8.4-10.2); Carbon Dioxide 22 mmol/L (22-29); Chloride 111 mmol/L (96-108); Creatinine Clr Calc Pharmacy 113.3; Estimated Glomerular Filt Rate > 60; Glucose Random 95 mg/dL (60-115); Potassium 4.1 mmol/L (3.3-5.1); Sodium 142 mmol/L (135-145)
[2021-01-08 00:11] LABS: Troponin-I High Sensitivity < 3.5 ng/L (<3.5-17.0)
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
[2021-01-08] MEDS: Ibuprofen 600 MG TABLET PO (00:51)
[2021-01-08] MEDS: oxyCODONE HCl Immed Release 5 MG TABLET PO (00:51)
== END 2021-01-08 01:37 | disposition home or self-care (01) ==
PROVIDERS: Emergency Provider Emergency Medicine; PCP Family Medicine Geriatric Medicine
DX: S20.219A Contusion of unspecified front wall of thorax, initial encounter (principal); V43.62XA Car passenger injured in collision with other type car in traffic accident, initial encounter; Y93.89 Activity, other specified; Y92.414 Local residential or business street as the place of occurrence of the external cause; Y99.9 Unspecified external cause status
CPT/HCPCS: 36415; 71045; 80048; 84484; 85025; 93005; 99284

== ENCOUNTER 2021-03-26 12:04 | Emergency (ER) | payer OTHER, SELFPAY ==
--- NOTE | 2021-03-26 | ECG_ITS ---
Test Reason : CHEST PAIN Blood Pressure : / mmHG Vent. Rate : 087 BPM Atrial Rate : 087 BPM P-R Int : 144 ms QRS Dur : 086 ms QT Int : 360 ms P-R-T Axes : 031 044 061 degrees QTc Int : 433 ms Normal sinus rhythm Nonspecific T wave abnormality Abnormal ECG When compared with ECG of 07-JAN-2021 23:30, No significant change was found Referred By: Generic ED Physician Electronically Signed By:DANIEL MARINO MD
[2021-03-26 12:38] VITALS: BP 102/77; PULSE 92; RESP 18; TEMP 36.8; O2SAT 98; BMI 33.3
== END 2021-03-26 15:56 | disposition left against medical advice (07) ==
LOC: HO.ED 15:32
PROVIDERS: Emergency Provider Emergency Medicine; PCP Family Medicine Geriatric Medicine
DX: R07.9 Chest pain, unspecified (principal); H92.03 Otalgia, bilateral
CPT/HCPCS: 93005; 99283

== ENCOUNTER 2023-02-16 04:57 | Emergency (ER) | payer OTHER, SELFPAY ==
--- NOTE | 2023-02-16 | ECG_ITS ---
Test Reason : OD Blood Pressure : / mmHG Vent. Rate : 093 BPM Atrial Rate : 093 BPM P-R Int : 170 ms QRS Dur : 092 ms QT Int : 356 ms P-R-T Axes : 038 034 034 degrees QTc Int : 442 ms Normal sinus rhythm Normal ECG When compared with ECG of 26-MAR-2021 12:20, Nonspecific T wave abnormality no longer evident in Anterolateral leads Referred By: Generic ED Physician Electronically Signed By:MATTIE YIN
[2023-02-16 04:59] VITALS: BP 102/70; BP 104/72; PULSE 104; PULSE 94; RESP 13; TEMP 36.8; O2SAT 100; O2SAT 99; BMI 32.3
--- NOTE | 2023-02-16 05:25 | MHC.EDTECH ---
Patient came in by EMS, patient was changed into hospital attire,security at bedside and took all belongings to [facility] room. Vitals taken and patient placed on the manager cardiac cath, EKG obtained.
--- OUTSIDE RECORDS SUMMARY | 2023-02-16 05:50 | XMS_ITS | Continuity of Care Document ---
Author Name Unknown Organization [facility] ter Address [address] [place] [id number] Care Team Providers Care Sap Developer Name Role Phone Not on Staff, PCP Primary Care Physician Unavail able Encounter [facility] [place] Date(s): 10/18/20 - 10/18/[address] [address]- Discharge Disposition: A-D/C Home Attending Physician: Lucero Faith MD Admitting Physician: Lucero Faith MD Referring Physician: Not on Staff, Referring MD Allergies, Adverse Reactions, Alerts Substance Reaction Severity Status Milk Products Active Results Radiology Reports * Exam Date Time Procedure Performing Provider Status 10/18/20 6:36 AM Chest Portable Yamile Burkett ( Verified) Notes: (Chest Portable) Reason For Exam: Cough RESULT: Chest Portable AP upright portable chest dated October 18, 2020 at 0620 hours. No prior studies are available. HISTORY: Shortness of breath and dry cough. FINDINGS: Today's study is limited by artifact from patient's bra, other clothing and, from an electronic instrument overlying the left upper lobe. The cardiac silhouette is within normal limits for size. Hilar and mediastinal structures are unremarkable. No airspace infiltrate or pleural effusion is identified. Visualized osseous structures are unremarkable. IMPRESSION: No evidence of acute pulmonary disease. Artifact from overlying clothing. Examination [id number]. Thank you for allowing me to participate in the care of this patient. WSN: [id number] Ordering Physician: Gume Morrison Dictated By: Heriberto Norris MD Dictated Date/Time: 10/18/20 8:00 am Reviewed By: Heriberto Norris MD Signed By: Heriberto Norris MD Signed Date/Time: 10/18/20 8:00 am Transcribed By: MAXIM Transcribed Date/Time: 10/18/20 7:58 am Vital Signs Most recent to oldest [Reference Range]: 1 2 3 Oxygen Saturation [94-100 %] 98 % (10/18/20 9:59 AM) 99 % (10/18/20 8:51 AM) 98 % (10/18/20 7:35 AM) Pulse Rate [55-90 bpm] 93 bpm *H* (10/18/20 9:59 AM) 90 bpm (10/18/20 8:51 AM) 84 bpm (10/18/20 7:35 AM) Blood Pressure [90-138/55-84 mm Hg] 112/67mm Hg (10/18/20 9:59 AM) 114/67mm Hg (10/18/20 8:51 AM) 114/77mm Hg (10/18/20 7:35 AM) Respiratory Rate [16-30 br/min] 18 br/min (10/18/20 9:59 AM) 18 br/min (10/18/20 8:51 AM) 18 br/min (10/18/20 7:35 AM) Temperature [96.8-100.4 DegF] 97.8 DegF (10/18/20 9:59 AM) 97.9 DegF (10/18/20 8:51 AM) 97.9 DegF (10/18/20 7:35 AM) Mode of Delivery (Oxygen) Room air (10/18/20 9:59 AM) Room air (10/18/20 8:51 AM) Room air (10/18/20 7:35 AM) Blood pressure sites Arm, right (10/18/20 9:59 AM) Arm, right (10/18/20 8:51 AM) Arm, right (10/18/20 7:35 AM) Temperature Route Oral (10/18/20 9:59 AM) Oral (10/18/20 8:51 AM) Oral (10/18/20 7:35 AM)
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
--- OUTSIDE RECORDS SUMMARY | 2023-02-16 05:51 | XMS_ITS | Patient Health Record ---
Author Name Unknown Organization [facility] Address [address] [place] [address] Care Team Providers Care Manager Enrollment Name Role Phone clinic, [facility] Primary Care Provider JO-ANN Bryson Unavailable [phone] ALLERGIES Allergen (clinical drug ingredient) Drug/Non Drug Allergy documented on EMR Reaction Allergy Type Onset Date Status berries (uncoded) throat closes Allergy Active REASON FOR REFERRAL No Information MEDICATIONS Medication SIG (Take, Route, Frequency, Duration) Notes Start Date End Date Status Doxepin HCl Active SOCIAL HISTORY Tobacco Use: Social History Observation Description Date Details (start date - stop date) Never Smoker NA - NA Sex Assigned At : Social History Observation Description Sex Assigned At Unknown Tobacco Use/Smoking Question Answer Notes Are you a nonsmoker Alcohol Screen Question Answer Notes Did you have a drink containing alcohol in the p ast year? No Points 0 Interpretation Negative Sexual History Question Answer Notes Had sex in the past 12 months (vaginal, oral, or anal)? Yes with Men only Use protection? No BMI Management Question Answer Notes Above Normal BMI Follow-up Dietary manag ement education, guidance, and counseling PROBLEMS Problem Type ICD Code Onset Dates Problem Status W/U Status Risk SNOMED Code Notes Problem Irregular menstruation, unspecified (N92.6) Active confirmed Irregular menstruation (51470575) Problem Other specified abnormal uterine and vaginal bleeding (N93.8) Active confirmed Abnormal vagina l bleeding (179774243) Problem Dysmenorrhea, unspecified (N94.6) Active confirmed Dysmenorrhea ([id number]) PLAN OF TREATMENT Pending Test Test Name Order Date SURGICAL PATH REPORT - [facility] 11/03/2017 SURGICAL PATH REPORT - [facility] 11/10/2017 CBC & AUTOMATED DIFFERENTIAL 11/09/2017 HCG SERUM QUANT 11/09/2017 COMPREHENSIVE METABOLIC 11/09/2017 URINALYSIS W/REFLEX TO CULTURE 8 Insurance Providers Payer Name Payer Address Payer Phone Subscriber Number Group Number Insured Name Patient Relationship to Insured Coverage Start Date Coverage End Date [facility] [employer] [address] [address] [place] [address] [id number] VALDEZ STRONG Self - patient is the insured MEDICAL (GENERAL) HISTORY Medical History History ICD Code asthma Surgical History Surgery Date(Month/Year) gallbladder removal tubal ligation Hospitalization History Reason Date(Month/Year) childbirth x2
[2023-02-16 06:07] VITALS: BP 113/78; PULSE 83; RESP 20; O2SAT 97
--- NOTE | 2023-02-16 06:07 | MHC.EDTECH ---
Hourly rounds and vitals completed,patient is sleeping at this time and call watson within reach.
--- NOTE | 2023-02-16 06:16 | ED_ITS ---
HPI - Overdose General Chief Complaint: Overdose Stated Complaint: od Time Seen by Provider: 02/16/23 06:07 Source: patient and EMS Mode of arrival: EMS Limitations: no limitations History of Present Illness HPI Narrative: 32-year-old female who was brought to emergency department by EMS for evaluation of unintentional overdose on heroin. Patient states that she does not normally use heroin but smoked her 02:00 hours. Patient states that her ex boyfriend found her at home unresponsive and not breathing when the paramedics arrived, patient was treated with 60 mg of Narcan intranasally which caused the patient to wake up become alert. Patient states that she did use the heroin with another person who uses heroin frequently. She denied being ill in any way prior to using the heroin. She denied fever, chills, rhinorrhea, sore throat, cough, chest pain, shortness of breath, nausea, vomiting, diarrhea. At the time my evaluation, she is awake and alert has no complaints. Related Data Previous Rx's Medication Instructions Recorded ondansetron HCl 4 mg tablet 4 mg PO Q8H PRN nausea and 07/05/20 (Zofran) vomiting #10 tabs ibuprofen 800 mg tablet 600 mg (0.75 x 800 mg) PO Q8H PRN 07/19/20 pain #14 tabs ondansetron HCl 4 mg tablet 4 mg PO Q8H PRN nausea and 07/19/20 (Zofran) vomiting #14 tabs oxycodone-acetaminophen 5 mg-325 1 tab PO Q6H PRN pain #10 tabs 07/19/20 mg tablet (Percocet) dicyclomine 20 mg tablet 20 mg PO QID PRN abdominal pain 08/14/20 #20 tabs lorazepam 1 mg tablet (Ativan) 1 mg PO BEDTIME PRN anxiety #14 08/14/20 tabs omeprazole magnesium 20 mg 20 mg PO DAILY #14 tabs 10/08/20 tablet,delayed release (Prilosec OTC) ibuprofen 600 mg tablet 600 mg PO Q8H PRN pain #20 tabs 12/20/20 ibuprofen 600 mg tablet 600 mg PO Q8H PRN pain #30 tabs 01/08/21 oxycodone 5 mg tablet 5 mg PO BID PRN pain #5 tabs 01/08/21 Allergies Allergy/AdvReac Type Severity Reaction Status Date / Time strawberry Allergy Anaphylaxis Verified 01/07/21 23:18 Review of Systems Review of Systems: Yes all other systems are reviewed and are negative [facility] Past Medical History Attestation statement: The following information was validated with the patient. [facility] Narrative: Past medical history: Atrial fibrillation, asthma, SVT, fibromyalgia, pancreatitis. Surgical history: Cholecystectomy , tubal ligation. Social history: She denies tobacco, alcohol and drug use, she states this is 1st time that she used heroin. Medical History Cholecystectomy planned Pancreatitis SVT (supraventricular tachycardia) Surgical History Tubal ligation status Social History Social History Alcohol intake: never Use of substances other than those prescribed or required for medical reasons: Yes Substance Use Type: Heroin Substance Use Frequency: Chronic Longstanding Advance Directives: No Advance Directives Information Provided: Yes Patient : No Physical Exam Vital Signs: Vital Signs: Last Vital Signs Temp 98.2 F 02/16/23 04:59 Pulse 83 02/16/23 06:07 Resp 20 02/16/23 06:07 BP 113/78 02/16/23 06:07 Pulse Ox 97 02/16/23 06:07 O2 Del Method Room Air 02/16/23 06:07 BMI result Body Mass Index 32.3 Vital signs were normal Exam: General: Awake, alert in no distress Head: Normocephalic, atraumatic EENT: PERRL, Lids normal, sclera normal, conjunctiva normal, nose normal , ears normal, throat without erythema or exudates Neck: Supple, no adenopathy, trachea midline and nontender Lung: breath sounds symmetric, no wheezing, rales or rhonchi Chest: symmetric movement, nontender Heart: regular rate and rhythm, normal S1, S2 no murmurs or rubs Abdomen: soft, non-tender, nondistended, normal bowel sounds Back: no vertebral tenderness, no CVAT Extremities: no deformities, moves all extremities symmetrically Skin: no rashes, no lesion, normal color and warmth Neuro: Awake, alert, oriented, normal speech, cranial nerves intact, moves all extremities symmetrically Psych: Pleasant, cooperative Medical Decision Making Medical Decision Making MDM Narrative: 32-year-old female who presents emergency department for evaluation altered mental status after smoking heroin at 02:00 hours, she was found unresponsive by her ex-boyfriend. Patient was given 16 mg of intranasal Narcan which caused her to wake up and become responsive. Patient stated that this was the 1st time she had used heroin. She denied being ill in any way prior to using heroin. At the time my evaluation she is awake and alert does not appear to be in distress. I ordered a urine drug screen and EKG on the patient. The patient was placed on a cardiac and O2 saturation monitor. The patient will need to be monitored for 2 hours to make sure that she does not become altered again secondary to possible long-acting narcotic 0827: Patient was observed in the emergency department on a cardiac and O2 saturation monitor for 2 hours. She remained awake and alert with no signs of respiratory distress or change in mental status. The patient took a role in at 02:00 hours and I believe that this is sufficient observation time to safely discharged home. Patient will be discharged with an intranasal Narcan dispense pack. She does not want to get into a rehab program and she does not want to talk to our care team since she states that this was her only time that she has used heroin and does not plan on using again. Differential Diagnosis Differential Diagnoses: The differential diagnosis associated with the presentation includes differential diagnosis includes was not limited to heroin overdose, fentanyl overdose, cocaine overdose, benzodiazepine overdose anxiety Admission/Observation Consideration of admission/observation: Escalation of care including admission/observation considered Independent Interpretation I performed an independent interpretation of an: EKG Interpretation: my independent interpretation the patient's 12 EKG done at 05:22 hours is as follows: Normal sinus rhythm with a rate of 93, normal RI interval, QRS duration QTC interval, flat T-wave in lead 3, no ST segment elevation, no ST segment depression, no PACs, no PVCs. Compared to EKG dated 03/26/2021, the flat T-wave in 3 is new but otherwise there are no other significant changes. This changes nonspecific. Chronic Conditions Patient?s care impacted by: Other ( asthma, atrial fibrillation) Critical Care Time Critical Care Time Critical Care Time: Yes Total Critical Care Time: 35 Attestation: Critical Care: The patient was critically ill with a high probability of imminent or life threatening deterioration. I spent greater than 30 minutes of discontinuous time evaluating the patient,delivering critical care at the bedside, Critical care time does not include time spent performing separately billable procedures or teaching. Total time spent performing critical care was 35 minutes. Discharge Plan Discharge Clinical Impression: Opiate or related narcotic overdose Qualifiers: Encounter type: initial encounter Injury intent: accidental or unintentional Qualified Code(s): T40.601A - Poisoning by unspecified narcotics, accidental (unintentional), initial encounter Patient Disposition: Home, Self-Care Additional Instructions: You were found unresponsive. The 1st responders gave you 2 doses of intranasal Narcan which woke you up. This suggests that you had a life-threatening overdose caused by the heroin/opiate that he smoked earlier in the morning. Your are being discharged home with intranasal Narcan. If you are going to continue to use heroin, you should make sure that there is a sober person with you that is not using drugs and that this person can administer intranasal Narcan in the event that you stop breathing. Follow-up with your doctor in 2 days. Please return to the emergency department if your symptoms get worse or if you develop any symptoms that are concerning to you. Prescriptions: No Action ondansetron HCl [Zofran] 4 mg tablet 4 mg PO Q8H PRN (Reason: nausea and vomiting) Qty: 10 0RF ibuprofen 800 mg tablet 600 mg PO Q8H PRN (Reason: pain) Qty: 14 0RF ondansetron HCl [Zofran] 4 mg tablet 4 mg PO Q8H PRN (Reason: nausea and vomiting) Qty: 14 0RF oxycodone-acetaminophen [Percocet] 5-325 mg tablet 1 tab PO Q6H PRN (Reason: pain) Qty: 10 0RF dicyclomine 20 mg tablet 20 mg PO QID PRN (Reason: abdominal pain) Qty: 20 0RF lorazepam [Ativan] 1 mg tablet 1 mg PO BEDTIME PRN (Reason: anxiety) Qty: 14 0RF ibuprofen 600 mg tablet 600 mg PO Q8H PRN (Reason: pain) Qty: 20 0RF ibuprofen 600 mg tablet 600 mg PO Q8H PRN (Reason: pain) Qty: 30 0RF oxycodone 5 mg tablet 5 mg PO BID PRN (Reason: pain) Qty: 5 0RF omeprazole magnesium [Prilosec OTC] 20 mg tablet,delayed release (DR/EC) 20 mg PO DAILY Qty: 14 0RF
--- NOTE | 2023-02-16 06:58 | PC.NURSE ---
pt resting quietly in room, respirations even and unlabored. NSR on monitor, call watson within reach.
== END 2023-02-16 08:39 | disposition home or self-care (01) ==
PROVIDERS: Emergency Provider Emergency Medicine Emergency Medical Services
DX: T40.1X1A Poisoning by heroin, accidental (unintentional), initial encounter (principal); Y92.9 Unspecified place or not applicable; Z79.899 Other long term (current) drug therapy
CPT/HCPCS: 93005; 99283; 99285

== ENCOUNTER 2024-02-28 18:39 | Inpatient (IN) | payer MEDICAID, OTHER, SELFPAY ==
--- NOTE | ~2024-02-28 | XR_ITS ---
EXAMINATION: XR CHEST CLINICAL INFORMATION: Cough COMPARISON: None available. TECHNIQUE: 2 views of the chest were obtained. FINDINGS: No significant abnormality is noted involving the heart, lungs, mediastinum, bony thorax or soft tissues. Incidental note made of surgical clips in the right upper quadrant XR/XR chest 2V IMPRESSION: Unremarkable examination. Electronically signed by: David Rocha MD 02/29/2024 03:32 PM EDT RP
[2024-02-28 18:39] VITALS: BP 128/70; PULSE 110; O2SAT 99
[2024-02-28 19:10] VITALS: BP 118/76; PULSE 114; RESP 18; TEMP 36.4; O2SAT 96; BMI 34.0
--- NOTE | 2024-02-28 19:10 | ED.PSYCH ---
HPI - Psych General Chief Complaint: Psychiatric Symptoms Stated Complaint: medical clearance from [facility] Time Seen by Provider: 02/28/24 19:07 Source: patient and EMS Mode of arrival: EMS Limitations: no limitations History of Present Illness HPI Narrative: Patient is a 34-year-old female who presents emergency department via EMS. Endorsing suicidal ideations with plan to overdose on crack cocaine and heroin. She states that she requires medical clearance for [facility], reports that she was told she needed to come here first for medical clearance. She has been receiving Suboxone through [facility], reportedly was last dosed 3 days ago with 16 mg. She does admit to using crack cocaine and a couple bags of heroin yesterday, reports that she is smoking it. She states ?I want to kill myself?, endorses feeling this way over the past week. She endorses feeling nauseous, and says like she might be going through withdrawal. Related Data Home Medications ?Medication ?Instructions ?Recorded ?Confirmed buprenorphine 8 mg-naloxone 2 mg 1 film sublingual DAILY 02/28/24 02/28/24 sublingual film (Suboxone) Previous Rx's ?Medication ?Instructions ?Recorded ondansetron HCl 4 mg tablet 4 mg PO Q8H PRN nausea and 07/05/20 (Zofran) vomiting #10 tabs ibuprofen 800 mg tablet 600 mg (0.75 x 800 mg) PO Q8H PRN 07/19/20 pain #14 tabs ondansetron HCl 4 mg tablet 4 mg PO Q8H PRN nausea and 07/19/20 (Zofran) vomiting #14 tabs oxycodone-acetaminophen 5 mg-325 1 tab PO Q6H PRN pain #10 tabs 07/19/20 mg tablet (Percocet) dicyclomine 20 mg tablet 20 mg PO QID PRN abdominal pain 08/14/20 #20 tabs lorazepam 1 mg tablet (Ativan) 1 mg PO BEDTIME PRN anxiety #14 08/14/20 tabs omeprazole magnesium 20 mg 20 mg PO DAILY #14 tabs 10/08/20 tablet,delayed release (Prilosec OTC) ibuprofen 600 mg tablet 600 mg PO Q8H PRN pain #20 tabs 12/20/20 ibuprofen 600 mg tablet 600 mg PO Q8H PRN pain #30 tabs 01/08/21 oxycodone 5 mg tablet 5 mg PO BID PRN pain #5 tabs 01/08/21 Allergies Allergy/AdvReac Type Severity Reaction Status Date / Time strawberry Allergy Anaphylaxis Verified 02/28/24 19:11 Review of Systems Review of Systems: Yes all other systems are reviewed and are negative [facility] Past Medical History Attestation statement: The following information was validated with the patient. Source: old records reviewed Medical History Cholecystectomy planned SVT (supraventricular tachycardia) Pancreatitis Surgical History Tubal ligation status Social History Social History Alcohol intake: never Smoked in Last 30 Days: No Use of substances other than those prescribed or required for medical reasons: Yes Substance Use Type: Crack/Cocaine and Heroin Advance Directives: No Do you have a plan to hurt others: No Plan Patient : No Physical Exam Vital Signs: Vital Signs: Last Vital Signs Temp 97.6 F 02/28/24 19:10 Pulse 114 H 02/28/24 19:10 Resp 18 02/28/24 19:10 BP 118/76 02/28/24 19:10 Pulse Ox 96 02/28/24 19:10 O2 Del Method Room Air 02/28/24 19:10 BMI result Body Mass Index 34.0 Appearance: Alert.?Oriented to person, place and time. No acute distress.?Normal affect. Eyes: Pupils equal, round and reactive to light.? ENT: Pharynx normal.?? Neck: Normal inspection.? Neck supple.?? CVS: Heart sounds normal. Normal heart rate and rhythm.? Pulses normal.?? Respiratory: No respiratory distress.? Lung sounds clear to auscultation bilaterally?? Abdomen: Soft and non-tender. Normoactive bowel sounds. Skin: Skin warm and dry.? Normal skin color.? Extremities: No lower extremity edema.? Neuro: Moves all extremities spontaneously. Sensation intact bilaterally. CN II-XII intact. No focal neuro deficits. Ambulates with normal steady gait. Course Reevaluation(s) Reevaluation #1: Care team was able to make contact with [facility], she was declined for placement due to concern for potential withdrawal polysubstance, patient was offered assistance with detox but she declined and elected to come here instead. Medications Administered Generic Name Dose Route Start Last Admin Trade Name Leopoldo PRN Reason Stop Dose Admin Cefuroxime Axetil 250 mg 02/28/24 21:00 02/28/24 21:16 Cefuroxime Axetil 250 Mg Tablet PO 03/06/24 09:01 250 mg BID RON Administration Discontinued Medications Generic Name Dose Route Start Last Admin Trade Name Leopoldo PRN Reason Stop Dose Admin Clonidine HCl 0.1 mg 02/28/24 19:43 02/28/24 19:59 Clonidine Hcl 0.1 Mg Tablet PO 02/28/24 19:44 0.1 mg ONCE ONE Administration Protocol Ondansetron HCl 4 mg 02/28/24 19:43 02/28/24 19:59 Ondansetron Odt 4 Mg Tab.Rapdis TRANSLINGU 02/28/24 19:44 4 mg ONCE ONE Administration Medical Decision Making Medical Decision Making [facility] Narrative: Patient is a 34-year-old female past medical history of polysubstance use disorder, SVT, pancreatitis who presents emergency department suicidal ideations and a plan to overdose, endorsing increasing depression over the past week. Has not been dosed with Suboxone reportedly in 3 days, admits to using recreational drugs as per HPI. She is feeling nauseous at this time, her abdominal examination is benign. I suspect that her nausea is due to withdrawal from opiates. She will be medicated with Zofran and clonidine. It is unclear whether she was evaluated by [facility] in the community. Care team has contacted them, reportedly she called them requesting assistance with respite but was ultimately declined and she came here on her own. Care team coordinating further information, require safe disposition Differential Diagnosis Differential Diagnoses: The differential diagnosis associated with the presentation includes (See narrative above and below for further detail) Admission/Observation Consideration of admission/observation: Escalation of care including admission/observation considered Patient is being observed in the Emergency Department for depression and anxiety. Observation time was started at 19:47 on 02/28/2024.?The patient is currently stable and non-toxic appearing. Observation is being initiated in the Emergency Department to allow time to help differentiate if the patient's depression and anxiety is due to Substance Induced Mood Disorder and Anxiety versus Major Depressive Disorder, Bipolar Caroline, Bipolar Depression, and Schizophrenia. The patient will receive frequent psychiatric assessments from the provider as well as from nursing staff. The patient will also be monitored for the need of PRN agitation medications such as Haldol, Ativan, and Benadryl. Consult Healthcare Provider Management of the patient was discussed with: Behavioral Health Provider (Care team) Lab Data [facility] Lab Attestation statement: I reviewed the patient's lab results. CBC reveals a mild leukocytosis with left shift, urinalysis concerning for urinary tract infection, started on cefuroxime. No electrolyte derangement. No EVELYN. Tas positive for buprenorphine, cocaine. Alcohol nondetectable. 02/28/24 20:22 02/28/24 20:22 Labs: Lab Results 02/28/24 02/28/24 Range/Units 19:43 20:22 WBC 13.0 H (4.8-10.8) X10*3/uL RBC 4.09 L (4.20-5.50) X10*6/uL Hgb 12.2 (12.0-16.0) g/dl Hct 36.6 L (37.0-47.0) % MCV 89.5 (80.0-98.0) fL MCH 29.8 (27.0-33.0) pg MCHC 33.3 (31.0-35.0) g/dl RDW 13.5 (11.0-16.0) % Plt Count 227 (160-400) X10*3/uL MPV 9.1 L (9.4-12.3) fL Immature Gran % (Auto) 0.4 (0.0-0.4) % Neut % (Auto) 81.4 H (45-73) % Lymph % (Auto) 8.8 L (20-40) % Morrow % (Auto) 8.9 (2-11) % Eos % (Auto) 0.2 (0-4) % Baso % (Auto) 0.3 (0-2) % Lymph # (Auto) 1.2 (1.2-4.9) X10*3/uL Morrow # (Auto) 1.2 (0.1-1.2) X10*3/uL Eos # (Auto) 0.0 (0.0-0.4) X10*3/uL Baso # (Auto) 0.0 (0.0-0.2) X10*3/uL Abs Immat Gran (auto) 0.05 H (0.00-0.03) X10*3/uL Absolute Neuts (auto) 10.6 H (2.0-8.3) x10*3/uL Absolute Nucleated RBC 0.000 (0.0-0.012) X10*3/uL Nucleated RBC % (auto) 0.0 (0.0-0.2) /100WBC Sodium 135 (135-145) mmol/L Potassium 3.7 (3.3-5.1) mmol/L Chloride 100 (96-108) mmol/L Carbon Dioxide 26 (22-29) mmol/L Anion Gap 13 (12-20) BUN 8 L (9-16) mg/dL Creatinine 0.70 (0.5-1.4) mg/dL Estim Creat Clear Calc 121.7 Estimated GFR > 60 Random Glucose 125 H (60-115) mg/dL Calcium 9.2 (8.4-10.2) mg/dL Total Bilirubin 0.7 (0.0-1.0) mg/dL AST 23 (5-31) U/L ALT 44 H (0-31) U/L Alkaline Phosphatase 75 (39-117) U/L Total Protein 6.9 (6.5-8.0) g/dL Albumin 3.6 (3.5-5.0) g/dL Urine Color Yellow Urine Appearance Turbid Urine pH 8.0 (5.0-9.0) Ur Specific [place] 1.010 (1.005-1.025) Urine Protein 100 (2+) H (Neg-Trace) mg/dL Urine Glucose (UA) Negative (Negative) mg/dL Urine Ketones Negative (Negative) mg/dL Urine Blood Moderate (2+) H (Negative) Urine Nitrite Negative (Negative) Ur Leukocyte Esterase Large (3+) H (Negative) Urine RBC 3-5 H (0-2) /HPF Urine WBC >50 H (0-5) /HPF Ur Squamous Epith Cells 3-5 (0-2) /HPF Urine Bacteria 2+ (None Seen) Hyaline Casts 0-2 (0-2) /LPF Urine Opiates Screen Not Detected (Not Detect) Ur Buprenorphine Scrn Positive H (Not Detect) ng/mL Ur Oxycodone Screen Not Detected (Not Detect) ng/mL Urine Methadone Screen Not Detected (Not Detect) ng/mL Urine Fentanyl Screen Not Detected (Not Detect) Ur Barbiturates Screen Not Detected (Not Detect) Ur Phencyclidine Scrn Not Detected (Not Detect) Ur Amphetamines Screen Not Detected (Not Detect) U Benzodiazepines Scrn Not Detected (Not Detect) Urine Cocaine Screen POSITIVE H (Not Detect) U Marijuana (THC) Screen Not Detected (Not Detect) Ethyl Alcohol < 10 mg/dL Independent Historian Clinical information obtained from an independent historian. History obtained from or confirmed by: EMS External Record Review External record reviewed: Outpatient record Discharge Plan Discharge Clinical Impression: Suicidal ideation, Depression, Polysubstance use disorder, Urinary tract infection Patient Disposition: Still a Patient Prescriptions: No Action ondansetron HCl [Zofran] 4 mg tablet 4 mg PO Q8H PRN (Reason: nausea and vomiting) Qty: 10 0RF ibuprofen 800 mg tablet 600 mg PO Q8H PRN (Reason: pain) Qty: 14 0RF ondansetron HCl [Zofran] 4 mg tablet 4 mg PO Q8H PRN (Reason: nausea and vomiting) Qty: 14 0RF oxycodone-acetaminophen [Percocet] 5-325 mg tablet 1 tab PO Q6H PRN (Reason: pain) Qty: 10 0RF dicyclomine 20 mg tablet 20 mg PO QID PRN (Reason: abdominal pain) Qty: 20 0RF lorazepam [Ativan] 1 mg tablet 1 mg PO BEDTIME PRN (Reason: anxiety) Qty: 14 0RF ibuprofen 600 mg tablet 600 mg PO Q8H PRN (Reason: pain) Qty: 20 0RF ibuprofen 600 mg tablet 600 mg PO Q8H PRN (Reason: pain) Qty: 30 0RF oxycodone 5 mg tablet 5 mg PO BID PRN (Reason: pain) Qty: 5 0RF omeprazole magnesium [Prilosec OTC] 20 mg tablet,delayed release (DR/EC) 20 mg PO DAILY Qty: 14 0RF buprenorphine-naloxone [Suboxone] 8-2 mg film 1 film sublingual DAILY Interventions: Parke-Suicide Risk Severity Scale Last Done: 02/28/24 19:13 Print Language: Divehi
--- NOTE | 2024-02-28 19:33 | PC.NURSE ---
pt melissa reporting onset of SI with plan to OD. pt reports her plan is to smoke enough crack and heroin to end her life . pt reports she last used crack today and reports she also feels she may be going through withdrawal. pt denies HI at this time. pt reports she had been at [facility] prior to arrival and reports they called ems to transport pt here to be medically cleared for admission there. pt changed over, belongings placed in decon.
[2024-02-28 19:59] LABS: Appearance Urine Turbid; Color Urine Yellow; Glucose Urine UA Negative (Negative); Leukocyte Esterase Urine Large (3+) (Negative); Nitrite Urine Negative (Negative); UMIC TRIGGER UACC YES; Urine Blood Moderate (2+) (Negative); Urine Ketones Negative (Negative); Urine Protein 100 (2+) mg/dL (Neg-Trace)
[2024-02-28] MEDS: cloNIDine HCL 0.1 MG TABLET PO (19:59)
[2024-02-28] MEDS: Ondansetron ODT 4 MG TAB.RAPDIS TRANSLINGU (19:59)
--- NOTE | 2024-02-28 20:02 | PC.NURSE ---
pt medicated per mar, tolerated well with water.
[2024-02-28 20:13] LABS: Bacteria Urine 2+ (None Seen); Hyaline Casts Urine 0-2 /LPF (0-2); UACC Culture Trigger YES; WBC Urine >50 /HPF (0-5)
[2024-02-28 20:14] LABS: Amphetamine Screen Urine Not Detected (Not Detect); Barbiturates, Urine Not Detected (Not Detect); Benzodiazepines Screen Urine Not Detected (Not Detect); Buprenorphine Scr Positive (Not Detect); Cannabinoid Screen Urine Not Detected (Not Detect); Cocaine Screen Urine POSITIVE (Not Detect); Fentanyl, urine Not Detected (Not Detect); Methadone Screen, Urine Not Detected (Not Detect); Opiate Screen Urine Not Detected (Not Detect); Oxycodone Screen Urine Not Detected (Not Detect); Phencyclidine Screen Urine Not Detected (Not Detect)
[2024-02-28 20:25] LABS: MANUAL DIFF FLAG NO
[2024-02-28 20:28] LABS: Basophils Percent Auto 0.3 % (0-2); Eosinophils Percent Auto 0.2 % (0-4); Hematocrit 36.6 % (37.0-47.0); Hemoglobin 12.2 g/dl (12.0-16.0); Imm Gran Abs Auto 0.05 X10*3/uL (0.00-0.03); Imm Gran Pct Auto 0.4 % (0.0-0.4); Lymphocytes Absolute Auto 1.2 X10*3/uL (1.2-4.9); Lymphocytes Percent Auto 8.8 % (20-40); Mean Corpuscular HGB Conc 33.3 g/dl (31.0-35.0); Mean Corpuscular Hemoglobin 29.8 pg (27.0-33.0); Mean Corpuscular Volume 89.5 fL (80.0-98.0); Mean Platelet Volume 9.1 fL (9.4-12.3); Monocytes Absolute Auto 1.2 X10*3/uL (0.1-1.2); Monocytes Percent Auto 8.9 % (2-11); Neutrophils Absolute Auto 10.6 x10*3/uL (2.0-8.3); Neutrophils Percent Auto 81.4 % (45-73); Platelet Count 227 X10*3/uL (160-400); Red Blood Count 4.09 X10*6/uL (4.20-5.50); Red Cell Distribution Width 13.5 % (11.0-16.0)
--- NOTE | 2024-02-28 20:31 | PC.NURSE ---
care team at bedside discussing plan of care with pt.
[2024-02-28 20:58] LABS: Alanine Aminotransferase 44 U/L (0-31); Albumin Level 3.6 g/dL (3.5-5.0); Alkaline Phosphatase 75 U/L (39-117); Anion Gap 13 (12-20); Aspartate Amino Transferase 23 U/L (5-31); Bilirubin Total 0.7 mg/dL (0.0-1.0); Blood Urea Nitrogen 8 mg/dL (9-16); Calcium 9.2 mg/dL (8.4-10.2); Carbon Dioxide 26 mmol/L (22-29); Chloride 100 mmol/L (96-108); Creatinine Clr Calc Pharmacy 121.7; Estimated Glomerular Filt Rate > 60; Ethanol < 10 mg/dL; Glucose Random 125 mg/dL (60-115); Potassium 3.7 mmol/L (3.3-5.1); Sodium 135 mmol/L (135-145); Total Protein 6.9 g/dL (6.5-8.0)
[2024-02-28] MEDS: cefuroxime axetiL 250 MG TABLET PO (21:16)
--- NOTE | 2024-02-28 21:19 | PC.NURSE ---
attempted to med rec with pt, pt reports she takes suboxone and is unsure what other medications she takes at this time.
--- NOTE | 2024-02-28 21:45 | MHC.CARE ---
Pt evaluated by CARE Team and is an adult [facility] bedsearch. Treatment plan discussed with ED provider and POD RN. Pt is on a section 12A
--- NOTE | 2024-02-28 23:40 | MHC.CARE ---
This consumer loan underwriter contacted [facility] Crisis to determine if the pt was evaluated at the [facility] office or in the community as she arrived stating that she was sent to the ED for medical clearance. Per Antony Huynh the [facility] clearing supervisor, she was evaluated on sight and initially was advocating for a respite admission however, pt was declined due to fear of withdrawal symptoms. She indicated that she attempted to provide her with detox resources and assist with making phone calls to secure a bed however, pt declined wanting a detox admission and voluntarily came to the ED seeking a higher level of care. Per Antony pt is currently uninsured and noted that her insurance lapsed a few days ago. Antony stated that she was informed that The Social Security office had to review part of her documentation sent in prior to reinstating her [facility] health and had yet to complete the process. 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 Information about pt's insurance and assessment that occurred in the community was passed to the assessing clinician at this time and further follow up will occur moving forward as needed. ([facility] [phone])
[2024-02-29] VITALS (9 sets, daily range): BP systolic 104–171; BP diastolic 54–78; PULSE 95–113; RESP 16–20; TEMP 36.3–38.5; O2SAT 93–100; BMI 25.9
[2024-02-29] MEDS: Acetaminophen 325 MG TABLET 650 MG PO (05:09)
--- NOTE | 2024-02-29 05:17 | PC.NURSE ---
PT medicated as per aug for a fever.
--- NOTE | 2024-02-29 07:38 | ECG_ITS ---
Test Reason : MED CLEARENCE Blood Pressure : / mmHG Vent. Rate : 082 BPM Atrial Rate : 082 BPM P-R Int : 138 ms QRS Dur : 086 ms QT Int : 378 ms P-R-T Axes : 047 049 044 degrees QTc Int : 441 ms Normal sinus rhythm Normal ECG When compared with ECG of 16-FEB-2023 05:22, No significant change was found Referred By: Sugey Kerr Electronically Signed By:MATTIE YIN
--- NOTE | 2024-02-29 07:42 | PC.NURSE ---
patient states she does not take any other prescribed meds besides suboxone. med rec updated.
[2024-02-29] MEDS: cefuroxime axetiL 250 MG TABLET PO ×2 (08:04→21:20)
--- NOTE | 2024-02-29 09:51 | HO.PSYADMNOT ---
HPI Date of Service: 02/29/24 Chief Complaint: Depression, SI, polysubstance use d/o Sources of Information: patient interviewed, chart reviewed and crisis/core team assessment reviewed HPI Subjective Notes: Moran Warning and Conditional Voluntary Healthcare Proxy: No Guardianship: No Medical Problems Affecting Mental Status: No Narrative: 34 yo female presents with SI, plan to OD on cocaine and heroin and in detox from both. Pt reports she was refused for ACCS today and detox admission. Reports hx of AFib, Fibromyalgia, GERD, Asthma, Cough. Reports her goal is to get clean and to re-establish her med regime. She reports ~1 month relapse, Heroin 1/2 bundle daily via smoking and mixing this with crack. Denies need for Narcan. States she has been unable to remain clean for an extended period of time for a while . She is homeless, states CSS would help as, it is impossible for me to remain clean on the street. Reports hx of gabapentin, adderall XR, Clonidine, Suboxone, Omeprazole, Zofran. Pt able to reach family/partner in [place] to let them know she was safe, admitted and detoxing. We were able to reassure partner of treatment plan and gave contact, visiting information. Pt is also interested in referral for therapy, medications. States this is her first detox admit here. Past Psychiatric History: IP: 2019 [place] OP: No current alliances Trials: Gabapentin, Adderall XR, Clonidine, Suboxone Medical Evaluation Reviewed: Yes [facility] Medical History Cholecystectomy planned SVT (supraventricular tachycardia) Pancreatitis Surgical History Tubal ligation status Family History: Denies Social History: Family in [place]. Currently pt is homeless Substance History: Heroin, Cocaine Trauma History: Affirms Diagnostics Vital Signs (24Hr): Vital Signs - 24 hr 02/28/24 19:10 02/29/24 05:04 02/29/24 07:09 Temperature 97.6 F 101.3 F H 98.3 F Pulse Rate 114 H 113 H Respiratory Rate 18 17 Blood Pressure 118/76 120/69 Pulse Oximetry 96 98 Oxygen Delivery Method Room Air Room Air 02/29/24 08:07 Temperature 98.1 F Pulse Rate 95 Respiratory Rate 20 Blood Pressure 114/78 Pulse Oximetry 100 Oxygen Delivery Method Room Air BMI result Body Mass Index 34.0 Labs 02/28/24 20:22 02/28/24 20:22 Labs: Laboratory Results - last 48 hr 02/28/24 02/28/24 19:43 20:22 WBC 13.0 H RBC 4.09 L Hgb 12.2 Hct 36.6 L MCV 89.5 MCH 29.8 MCHC 33.3 RDW 13.5 Plt Count 227 MPV 9.1 L Immature Gran % (Auto) 0.4 Neut % (Auto) 81.4 H Lymph % (Auto) 8.8 L [place] % (Auto) 8.9 Eos % (Auto) 0.2 Baso % (Auto) 0.3 Lymph # (Auto) 1.2 [place] # (Auto) 1.2 Eos # (Auto) 0.0 Baso # (Auto) 0.0 Abs Immat Gran (auto) 0.05 H Absolute Neuts (auto) 10.6 H Absolute Nucleated RBC 0.000 Nucleated RBC % (auto) 0.0 Sodium 135 Potassium 3.7 Chloride 100 Carbon Dioxide 26 Anion Gap 13 BUN 8 L Creatinine 0.70 Estim Creat Clear Calc 121.7 Estimated GFR > 60 Random Glucose 125 H Calcium 9.2 Total Bilirubin 0.7 AST 23 ALT 44 H Alkaline Phosphatase 75 Total Protein 6.9 Albumin 3.6 Urine Color Yellow Urine Appearance Turbid Urine pH 8.0 Ur Specific [place] 1.010 Urine Protein 100 (2+) H Urine Glucose (UA) Negative Urine Ketones Negative Urine Blood Moderate (2+) H Urine Nitrite Negative Ur Leukocyte Esterase Large (3+) H Urine RBC 3-5 H Urine WBC >50 H Ur Squamous Epith Cells 3-5 Urine Bacteria 2+ Hyaline Casts 0-2 Urine Opiates Screen Not Detected Ur Buprenorphine Scrn Positive H Ur Oxycodone Screen Not Detected Urine Methadone Screen Not Detected Urine Fentanyl Screen Not Detected Ur Barbiturates Screen Not Detected Ur Phencyclidine Scrn Not Detected Ur Amphetamines Screen Not Detected U Benzodiazepines Scrn Not Detected Urine Cocaine Screen POSITIVE H U Marijuana (THC) Screen Not Detected Ethyl Alcohol < 10 Meds/Allergies Meds Home Medications ?Medication ?Instructions ?Recorded ?Confirmed ?Type buprenorphine 8 mg-naloxone 2 mg 1 film sublingual DAILY 02/28/24 02/28/24 History sublingual film (Suboxone) Allergies Allergies Allergy/AdvReac Type Severity Reaction Status Date / Time strawberry Allergy Anaphylaxis Verified 02/28/24 19:11 Mental Status Exam Mental Status Exam Patient Appearance: Appropriate Patient Orientation: Person, Place, Time and Situation Level of Consciousness: Alert Patient Behavior: Appropriate, Talkative, Cooperative, Restless, Good Eye Contact and Crying Mood Description: Depressed Affect Description: Flat Patient Cognition Impaired: No Ability to Follow Directions: Good Speech Pattern: Spontaneous Speech Memory Description: Intact Hallucinations: None Delusions: Not Present Thought Process: Rumination Thought Content: positive for Circumstantial, positive for Perseveration and positive for Suicidal Ideation Judgement: Fair Assessment & Plan Assessment & Plan (1) Polysubstance use disorder: Status: Acute Code(s): F19.90 - Other psychoactive substance use, unspecified, uncomplicated (2) Depression: Status: Acute Code(s): F32.A - Depression, unspecified (3) Suicidal ideation: Status: Acute Code(s): R45.851 - Suicidal ideations (4) Urinary tract infection: Status: Acute Code(s): N39.0 - Urinary tract infection, site not specified Plan Polysubstance use disorder, Depression, Current UTI, Rule out Substance Induced Mood Disorder. Plan: Admit, 15 minute checks, CV Safe detox Re-establish med regime Collateral contacts Pt expressed interest in CSS admission along with OP referrals for therapy, psychiatry Patient educated on: medication risk/benefits and therapeutic strategies Informed Consent: understands Reason for continued inpatient stay Substantial Risk for: med/psych decompensation Statement Statement: I have reviewed the history and physical and performed a pertinent examination on my patient. No changes have occurred unless specified. If the History and Physical was not performed prior to admission, the Hospitalist's service will be consulted for completing the admission physical. Time Spent With Patient Time: Total time managing care of this patient today ____ minutes.
[2024-02-29] MEDS: Baclofen 10 MG TABLET PO ×2 (11:24→21:20)
[2024-02-29] MEDS: hydrOXYzine HCL 25 MG TABLET PO (11:25)
--- NOTE | 2024-02-29 11:46 | PHA.MEDREC ---
Pharmacy Consult ? Medication Reconciliation Pharmacy has reviewed the medication reconciliation done by nursing.
[2024-02-29] MEDS: Flu Vacc TS2024-25(6mos up)/PF 0.5 ML SYRINGE IM (12:30)
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
[2024-02-29] MEDS: Buprenorphine/Naloxone 8/2 mg FILM 1 FILM SUBLINGUAL (13:55)
--- NOTE | 2024-02-29 14:06 | MHC.RECOVRN ---
Met with pt in 511-2 after consultation placed to Addiction Medicine for pt requesting to re-start suboxone . ? Chart review completed. Pt had presented to the ED requesting clearance to re enter [facility] program.? When in the ER she reported SI with a plan and reported W/D from crack and heroin. ? Pt was admitted to inpatient psych for stabilization.? She is currently prescribed suboxone 8-2mg QD to start tomorrow.? ? Upon assessment pt up awake and alert. ? Pt is presenting with and reporting withdrawals including agitation/anxiety, nausea, body temp. changes and body aches.? ? Pt she has never been in treatment before and her admission to [facility] was the first time.? She reports she has been smoking heroin and crack? for a ?long time?.? Her last use was the day before she came to ER (02/27/24).? She reports using 5 bags of heroin and ?some crack?.? She stated that her last dose of suboxone was 02/26/24.? Her tox screen was positive for cocaine and buprenorphine.?? Pt would like to re-start suboxone.? She is also looking for CSS/TSS placement ?far away? or to return to [facility].? Pt has support from BF at home that is in recovery.??? T/W provided pt with resources for inpt and outpatient treatment for OUD.? Spoke with provider Charito Lindo NP and she ordered dose of suboxone for today as the order in the chart did not start until tomorrow.? Report to ACS team and floor nurse Hailey.?? ACS will continue to support pt. During her stay.
[2024-02-29] MEDS: Gabapentin 300 MG CAPSULE PO ×2 (14:28→21:21)
[2024-02-29] MEDS: cloNIDine HCL 0.1 MG TABLET PO ×2 (14:28→21:20)
[2024-02-29] MEDS: Magnesium Hydrox/Alum Hydrox 30 ML ORAL.SUSP PO (14:30)
[2024-02-29] MEDS: Omeprazole 20 MG CAPSULE.DR PO (16:39)
[2024-02-29] MEDS: traZODone HCL 50 MG TABLET PO (21:21)
[2024-03-01] MEDS: Omeprazole 20 MG CAPSULE.DR PO ×2 (07:21→16:57)
[2024-03-01 08:00] VITALS: BP 114/76; PULSE 87; RESP 16; TEMP 36.8; O2SAT 95
[2024-03-01 08:25] LABS: Estimated Average Glucose 100 mg/dL; Hemoglobin A1C 91.3957 umol/L; Hemoglobin A1c % 5.1 % (<6.0); Total Hemoglobin (HGBA1C) 2881.0002 umol/L
[2024-03-01 09:06] LABS: Folate 10.4 ng/mL (> or = 4.0); Vitamin B12 359 pg/mL (200-900)
[2024-03-01] MEDS: Dextroamphetamine/Amphetamine XR 10 MG CAP.ER.24H 20 MG PO (09:26)
[2024-03-01] MEDS: Buprenorphine/Naloxone 8/2 mg FILM 1 FILM SUBLINGUAL ×2 (09:26→16:57)
[2024-03-01 09:27] VITALS: BP 114/76
[2024-03-01] MEDS: Multivitamin TABLET 1 TAB PO (09:27)
[2024-03-01] MEDS: cefuroxime axetiL 250 MG TABLET PO ×2 (09:27→21:49)
[2024-03-01] MEDS: cloNIDine HCL 0.1 MG TABLET PO ×3 (09:27→21:50)
[2024-03-01] MEDS: Gabapentin 300 MG CAPSULE PO (09:27)
--- NOTE | 2024-03-01 09:46 | MHC.RECOVRN ---
Briefly met with pt in 506 to follow up after Suboxone restart. Pt laying in bed, eyes closed, wakes to voice, grimacing. Pt reporting nausea and anxiety. Otherwise appears comfortable. Reports she typically receives Suboxone BID in the community. Denies other questions or concerns for t/w. Discussed with Charito Lindo APRN, as well as RN. Pt to receive comfort medications in addition to Suboxone.
[2024-03-01] MEDS: Baclofen 10 MG TABLET PO ×2 (09:57→17:06)
[2024-03-01] MEDS: Acetaminophen 325 MG TABLET 650 MG PO ×2 (09:57→21:49)
[2024-03-01] MEDS: Ondansetron ODT 4 MG TAB.RAPDIS TRANSLINGU (09:57)
--- NOTE | 2024-03-01 12:11 | P.PNPSI_ITS ---
Subjective Subjective Date of Service: 03/01/24 Reason For Visit: Depression, SI, polysubstance use d/o Subjective Notes: Conditional Voluntary Healthcare Proxy: No Guardianship: No Medical Problems Affecting Mental Status: No Interim History: Pt reports a difficult detox with pain, anxiety, diarrhea, severe body aches, tremors. Review of medications, education provided regarding sx mgt. Pt participating in her care. Medication Compliance: Yes Side effects from medications: No Attending Groups: No Review of Systems Acute medical concerns: No Medical Review of Systems: unchanged Review of Systems Review of Systems Reports significant detox sx. Mental Status Exam Mental Status Exam Patient Appearance: Appropriate Patient Orientation: Person, Place, Time and Situation Level of Consciousness: Alert Patient Behavior: Appropriate, Talkative, Cooperative, Restless, Good Eye Contact and Crying Mood Description: Depressed Affect Description: Flat Patient Cognition Impaired: No Ability to Follow Directions: Good Speech Pattern: Spontaneous Speech Memory Description: Intact Hallucinations: None Delusions: Not Present Thought Process: Rumination Thought Content: positive for Circumstantial, positive for Perseveration and positive for Suicidal Ideation Judgement: Fair Diagnostics Vital Signs (24Hr): Vital Signs - 24 hr 02/29/24 14:28 02/29/24 20:00 02/29/24 21:20 Temperature 98.1 F Pulse Rate 105 H Respiratory Rate 16 Blood Pressure 104/54 L 171/72 H 171/72 H Pulse Oximetry 93 Oxygen Delivery Method Room Air 03/01/24 08:00 03/01/24 09:27 Temperature 98.2 F Pulse Rate 87 Respiratory Rate 16 Blood Pressure 114/76 114/76 Pulse Oximetry 95 Oxygen Delivery Method Room Air BMI result Body Mass Index 25.9 Labs 02/28/24 20:22 02/28/24 20:22 Labs: Laboratory Results - last 48 hr 02/28/24 02/28/24 03/01/24 19:43 20:22 08:05 WBC 13.0 H RBC 4.09 L Hgb 12.2 Hct 36.6 L MCV 89.5 MCH 29.8 MCHC 33.3 RDW 13.5 Plt Count 227 MPV 9.1 L Immature Gran % (Auto) 0.4 Neut % (Auto) 81.4 H Lymph % (Auto) 8.8 L [place] % (Auto) 8.9 Eos % (Auto) 0.2 Baso % (Auto) 0.3 Lymph # (Auto) 1.2 [place]w # (Auto) 1.2 Eos # (Auto) 0.0 Baso # (Auto) 0.0 Abs Immat Gran (auto) 0.05 H Absolute Neuts (auto) 10.6 H Absolute Nucleated RBC 0.000 Nucleated RBC % (auto) 0.0 Sodium 135 Potassium 3.7 Chloride 100 Carbon Dioxide 26 Anion Gap 13 BUN 8 L Creatinine 0.70 Estim Creat Clear Calc 121.7 Estimated GFR > 60 Random Glucose 125 H Estimat Average Glucose Hemoglobin A1c % Calcium 9.2 Total Bilirubin 0.7 AST 23 ALT 44 H Alkaline Phosphatase 75 Total Protein 6.9 Albumin 3.6 Vitamin B12 359 Folate 10.4 Urine Color Yellow Urine Appearance Turbid Urine pH 8.0 Ur Specific [place] 1.010 Urine Protein 100 (2+) H Urine Glucose (UA) Negative Urine Ketones Negative Urine Blood Moderate (2+) H Urine Nitrite Negative Ur Leukocyte Esterase Large (3+) H Urine RBC 3-5 H Urine WBC >50 H Ur Squamous Epith Cells 3-5 Urine Bacteria 2+ Hyaline Casts 0-2 Urine Opiates Screen Not Detected Ur Buprenorphine Scrn Positive H Ur Oxycodone Screen Not Detected Urine Methadone Screen Not Detected Urine Fentanyl Screen Not Detected Ur Barbiturates Screen Not Detected Ur Phencyclidine Scrn Not Detected Ur Amphetamines Screen Not Detected U Benzodiazepines Scrn Not Detected Urine Cocaine Screen POSITIVE H U Marijuana (THC) Screen Not Detected Ethyl Alcohol < 10 03/01/24 08:06 WBC RBC Hgb Hct MCV MCH MCHC RDW Plt Count MPV Immature Gran % (Auto) Neut % (Auto) Lymph % (Auto) [place]w % (Auto) Eos % (Auto) Baso % (Auto) Lymph # (Auto) [place]th[place]w # (Auto) Eos # (Auto) Baso # (Auto) Abs Immat Gran (auto) Absolute Neuts (auto) Absolute Nucleated RBC Nucleated RBC % (auto) Sodium Potassium Chloride Carbon Dioxide Anion Gap BUN Creatinine Estim Creat Clear Calc Estimated GFR Random Glucose Estimat Average Glucose 100 Hemoglobin A1c % 5.1 Calcium Total Bilirubin AST ALT Alkaline Phosphatase Total Protein Albumin Vitamin B12 Folate Urine Color Urine Appearance Urine pH Ur Specific [place] Urine Protein Urine Glucose (UA) Urine Ketones Urine Blood Urine Nitrite Ur Leukocyte Esterase Urine RBC Urine WBC Ur Squamous Epith Cells Urine Bacteria Hyaline Casts Urine Opiates Screen Ur Buprenorphine Scrn Ur Oxycodone Screen Urine Methadone Screen Urine Fentanyl Screen Ur Barbiturates Screen Ur Phencyclidine Scrn Ur Amphetamines Screen U Benzodiazepines Scrn Urine Cocaine Screen U Marijuana (THC) Screen Ethyl Alcohol Imaging Radiology Impressions: ITS Impressions Chest X-Ray 02/29/24 13:20 IMPRESSION: Unremarkable examination. Electronically signed by: David Rocha MD 02/29/2024 03:32 PM EDT RP Medications Medications Current Medications Acetaminophen (Acetaminophen 325 Mg Tablet) 650 mg PO Q6H PRN PRN Reason: Headache/Pain Mild Scale (1-3) Last Admin: 03/01/24 09:57 Dose: 650 mg Al Hydroxide/Mg Hydroxide (Magnesium Hydrox/Alum Hydrox 30 Ml Oral.Susp) 30 ml PO Q6H PRN PRN Reason: Heartburn/Nausea Last Admin: 02/29/24 14:30 Dose: 30 ml Albuterol Sulfate (Albuterol Sulfate 90 Mcg 8 Gm Inhaler) 2 puff INHALE RQ4H PRN PRN Reason: wheeze Amphetamine/Dextroamphetamine (Dextroamphetamine/Amphetamine Xr 10 Mg Cap.Er.24h) 20 mg PO DAILY [facility] Last Admin: 03/01/24 09:26 Dose: 20 mg Baclofen (Baclofen 10 Mg Tablet) 10 mg PO BID PRN PRN Reason: withdrawal Last Admin: 03/01/24 09:57 Dose: 10 mg Buprenorphine/Naloxone (Buprenorphine/Naloxone 8/2 Mg Film) 1 film SUBLINGUAL BID@0800,1700 [facility] Cefuroxime Axetil (Cefuroxime Axetil 250 Mg Tablet) 250 mg PO BID [facility] Stop: 03/06/24 09:01 Last Admin: 03/01/24 09:27 Dose: 250 mg Clonidine HCl (Clonidine Hcl 0.1 Mg Tablet) 0.1 mg PO TID [facility]; Protocol Last Admin: 03/01/24 09:27 Dose: 0.1 mg Gabapentin (Gabapentin 300 Mg Capsule) 300 mg PO TID [facility] Last Admin: 03/01/24 09:27 Dose: 300 mg Hydroxyzine HCl (Hydroxyzine Hcl 25 Mg Tablet) 25 mg PO Q6H PRN PRN Reason: Anxiety Last Admin: 02/29/24 11:25 Dose: 25 mg Magnesium Hydroxide (Milk Of Magnesia 30 Ml Oral.Susp) 30 ml PO DAILY PRN PRN Reason: Constipation Multivitamins/Vitamin C (Multivitamin Tablet) 1 tab PO DAILY [facility] Last Admin: 03/01/24 09:27 Dose: 1 tab Nicotine (Nicotine 21 Mg Patch.Td24) 21 mg TRANSDERMA DAILY PRN PRN Reason: Nicotine Cravings Nicotine Polacrilex (Nicotine Polacrilex 2 Mg Gum) 4 mg BUCCAL Q2H PRN PRN Reason: Nicotine Cravings Olanzapine (Olanzapine 5 Mg Tablet) 5 mg PO Q4H PRN PRN Reason: agitation Omeprazole (Omeprazole 20 Mg Capsule.Dr) 20 mg PO BID@0630,1630 [facility] Last Admin: 03/01/24 07:21 Dose: 20 mg Ondansetron HCl (Ondansetron Odt 4 Mg Tab.Rapdis) 4 mg TRANSLINGU Q8H PRN PRN Reason: Nausea and Vomiting Last Admin: 03/01/24 09:57 Dose: 4 mg Trazodone HCl (Trazodone Hcl 50 Mg Tablet) 50 mg PO BEDTIME MRX1 PRN PRN Reason: Insomnia Last Admin: 02/29/24 21:21 Dose: 50 mg Allergies Allergies Allergy/AdvReac Type Severity Reaction Status Date / Time strawberry Allergy Anaphylaxis Verified 02/28/24 19:11 Assessment & Plan Assessment & Plan (1) Polysubstance use disorder: Status: Acute Code(s): F19.90 - Other psychoactive substance use, unspecified, uncomplicated (2) Depression: Status: Acute Code(s): F32.A - Depression, unspecified Plan 03/01- Increase Gabapentin to 600 mg tid Lorazepam 2 mg po x 1 Lorazepam 0.5 mg q 8h prn Reason for continued inpatient stay Substantial Risk for: rapid decompensation and med/psych decompensation Time Spent With Patient Time: Total time managing care of this patient today ____ minutes.
[2024-03-01] MEDS: LORazepam 1 MG TABLET 2 MG PO (13:07)
[2024-03-01] MEDS: Gabapentin 300 MG CAPSULE 600 MG PO ×2 (14:24→21:49)
[2024-03-01 14:29] VITALS: BP 122/78
[2024-03-01 20:00] VITALS: BP 130/75; PULSE 112; RESP 16; TEMP 36.4; O2SAT 95
[2024-03-01 21:40] VITALS: PULSE 114; RESP 18; TEMP 38.1; O2SAT 97
[2024-03-01 21:50] VITALS: BP 130/75
--- NOTE | 2024-03-01 23:13 | PC.NURSE ---
@2140 pt found to be hot to touch, oral temp 100.6. COWS 19. Provider contacted r/t pt symptoms and discomfort. Provider Alondra approved additional baclofen at this time. Acetaminophen also given
[2024-03-02] MEDS: Omeprazole 20 MG CAPSULE.DR PO ×2 (06:49→17:05)
[2024-03-02 08:00] VITALS: BP 142/100; PULSE 122; PULSE 90; RESP 18; TEMP 36.5; O2SAT 95
[2024-03-02] MEDS: Ondansetron ODT 4 MG TAB.RAPDIS TRANSLINGU ×2 (08:37→11:58)
[2024-03-02 08:55] VITALS: BP 142/100
[2024-03-02] MEDS: Multivitamin TABLET 1 TAB PO (08:55)
[2024-03-02] MEDS: Dextroamphetamine/Amphetamine XR 10 MG CAP.ER.24H 20 MG PO (08:55)
[2024-03-02] MEDS: Gabapentin 300 MG CAPSULE 600 MG PO ×3 (08:55→20:34)
[2024-03-02] MEDS: cloNIDine HCL 0.1 MG TABLET PO ×3 (08:55→20:36)
[2024-03-02] MEDS: Buprenorphine/Naloxone 8/2 mg FILM 1 FILM SUBLINGUAL ×2 (08:56→17:05)
[2024-03-02] MEDS: cefuroxime axetiL 250 MG TABLET PO ×2 (08:56→20:36)
[2024-03-02 08:58] VITALS: BP 126/72; PULSE 90; RESP 18; TEMP 36.7; O2SAT 100
[2024-03-02] MEDS: LORazepam 0.5 MG TABLET PO ×2 (10:55→19:07)
[2024-03-02] MEDS: Acetaminophen 325 MG TABLET 650 MG PO (10:55)
[2024-03-02 11:10] LABS: Cholesterol 172 mg/dL (<200); HDL Cholesterol 24 mg/dL (>40); LDL Cholesterol Calculated 115 mg/dL (<100); Magnesium 2.1 mg/dL (1.6-2.6); Triglycerides 168 mg/dL (<150)
[2024-03-02 11:24] LABS: Thyroid Stimulating Hormone 3.54 uIU/mL (0.32-4.0)
[2024-03-02] MEDS: Baclofen 10 MG TABLET PO ×2 (11:57→19:07)
[2024-03-02 14:19] VITALS: BP 110/69
[2024-03-02] MEDS: hydrOXYzine HCL 25 MG TABLET PO ×2 (14:19→20:45)
[2024-03-02] MEDS: OLANZapine 5 MG TABLET PO (15:37)
[2024-03-02 16:00] VITALS: BP 106/61; PULSE 93; RESP 18; TEMP 36.1; O2SAT 98
--- NOTE | 2024-03-02 16:54 | P.PNPSI_ITS ---
Subjective Subjective Date of Service: 03/02/24 Reason For Visit: Depression, SI, polysubstance use d/o Subjective Notes: Conditional Voluntary Interim History: Reviewed with Dr. Reed. Patient tearful during assessment. Patient reports feeling uncomfortable from detox. Review of medications, education provided regarding sx mgt. Patient reports passive suicidal ideation with no plan. She is requesting to be referred to a CSS away from this area. Patient denies HI/VH/AH. Medication Compliance: Yes Side effects from medications: No Review of Systems Review of Systems Reports significant detox sx. Mental Status Exam Mental Status Exam Patient Appearance: Appropriate Patient Orientation: Person, Place, Time and Situation Level of Consciousness: Alert Patient Behavior: Appropriate, Talkative, Cooperative, Restless, Good Eye Contact and Crying Mood Description: Depressed Affect Description: Flat Patient Cognition Impaired: No Ability to Follow Directions: Good Speech Pattern: Spontaneous Speech Memory Description: Intact Hallucinations: None Thought Process: Goal Oriented Diagnostics Vital Signs (24Hr): Vital Signs - 24 hr 03/01/24 20:00 03/01/24 21:40 03/01/24 21:50 Temperature 97.5 F 100.6 F H Pulse Rate 112 H 114 H Respiratory Rate 16 18 Blood Pressure 130/75 130/75 Pulse Oximetry 95 97 Oxygen Delivery Method Room Air Room Air 03/02/24 08:00 03/02/24 08:55 03/02/24 08:58 Temperature 97.7 F 98.1 F Pulse Rate 122 H 90 Respiratory Rate 18 18 Blood Pressure 142/100 H 142/100 H 126/72 Pulse Oximetry 95 100 Oxygen Delivery Method Room Air Room Air 03/02/24 14:19 03/02/24 16:00 Temperature 97 F Pulse Rate 93 Respiratory Rate 18 Blood Pressure 110/69 106/61 Pulse Oximetry 98 Oxygen Delivery Method Room Air BMI result Body Mass Index 25.9 Labs 02/28/24 20:22 02/28/24 20:22 Labs: Laboratory Results - last 48 hr 03/01/24 03/01/24 03/02/24 08:05 08:06 08:16 Estimat Average Glucose 100 Hemoglobin A1c % 5.1 Magnesium 2.1 Triglycerides 168 H Cholesterol 172 LDL Cholesterol, Calc 115 H HDL Cholesterol 24 L Vitamin B12 359 Folate 10.4 TSH 3.54 Free T4 0.80 Imaging Radiology Impressions: ITS Impressions Chest X-Ray 02/29/24 13:20 IMPRESSION: Unremarkable examination. Electronically signed by: David Rocha MD 02/29/2024 03:32 PM EDT RP Medications Medications Current Medications Acetaminophen (Acetaminophen 325 Mg Tablet) 650 mg PO Q6H PRN PRN Reason: Headache/Pain Mild Scale (1-3) Last Admin: 03/02/24 10:55 Dose: 650 mg Al Hydroxide/Mg Hydroxide (Magnesium Hydrox/Alum Hydrox 30 Ml Oral.Susp) 30 ml PO Q6H PRN PRN Reason: Heartburn/Nausea Last Admin: 02/29/24 14:30 Dose: 30 ml Albuterol Sulfate (Albuterol Sulfate 90 Mcg 8 Gm Inhaler) 2 puff INHALE RQ4H PRN PRN Reason: wheeze Amphetamine/Dextroamphetamine (Dextroamphetamine/Amphetamine Xr 10 Mg Cap.Er.24h) 20 mg PO DAILY [facility] Last Admin: 03/02/24 08:55 Dose: 20 mg Baclofen (Baclofen 10 Mg Tablet) 10 mg PO TID PRN PRN Reason: Opiate Withdrawal Last Admin: 03/02/24 11:57 Dose: 10 mg Buprenorphine/Naloxone (Buprenorphine/Naloxone 8/2 Mg Film) 1 film SUBLINGUAL BID@0800,1700 [facility] Last Admin: 03/02/24 08:56 Dose: 1 film Cefuroxime Axetil (Cefuroxime Axetil 250 Mg Tablet) 250 mg PO BID [facility] Stop: 03/06/24 09:01 Last Admin: 03/02/24 08:56 Dose: 250 mg Clonidine HCl (Clonidine Hcl 0.1 Mg Tablet) 0.1 mg PO TID [facility]; Protocol Last Admin: 03/02/24 14:19 Dose: 0.1 mg Gabapentin (Gabapentin 300 Mg Capsule) 600 mg PO TID [facility] Last Admin: 03/02/24 14:18 Dose: 600 mg Hydroxyzine HCl (Hydroxyzine Hcl 25 Mg Tablet) 25 mg PO Q6H PRN PRN Reason: Anxiety Last Admin: 03/02/24 14:19 Dose: 25 mg Loperamide HCl (Loperamide Hcl 2 Mg Capsule) 4 mg PO Q4H PRN PRN Reason: Diarrhea Lorazepam (Lorazepam 0.5 Mg Tablet) 0.5 mg PO Q8H PRN PRN Reason: anxiety/restlessness Last Admin: 03/02/24 10:55 Dose: 0.5 mg Magnesium Hydroxide (Milk Of Magnesia 30 Ml Oral.Susp) 30 ml PO DAILY PRN PRN Reason: Constipation Multivitamins/Vitamin C (Multivitamin Tablet) 1 tab PO DAILY [facility] Last Admin: 03/02/24 08:55 Dose: 1 tab Nicotine (Nicotine 21 Mg Patch.Td24) 21 mg TRANSDERMA DAILY PRN PRN Reason: Nicotine Cravings Nicotine Polacrilex (Nicotine Polacrilex 2 Mg Gum) 4 mg BUCCAL Q2H PRN PRN Reason: Nicotine Cravings Olanzapine (Olanzapine 5 Mg Tablet) 5 mg PO Q4H PRN PRN Reason: agitation Last Admin: 03/02/24 15:37 Dose: 5 mg Omeprazole (Omeprazole 20 Mg Capsule.Dr) 20 mg PO BID@0630,1630 [facility] Last Admin: 03/02/24 06:49 Dose: 20 mg Ondansetron HCl (Ondansetron Odt 4 Mg Tab.Rapdis) 4 mg TRANSLINGU Q4H PRN PRN Reason: Nausea and Vomiting Last Admin: 03/02/24 11:58 Dose: 4 mg Trazodone HCl (Trazodone Hcl 50 Mg Tablet) 50 mg PO BEDTIME MRX1 PRN PRN Reason: Insomnia Last Admin: 02/29/24 21:21 Dose: 50 mg Allergies Allergies Allergy/AdvReac Type Severity Reaction Status Date / Time strawberry Allergy Anaphylaxis Verified 02/28/24 19:11 Assessment & Plan Assessment & Plan (1) Depression: Status: Acute Code(s): F32.A - Depression, unspecified (2) Polysubstance use disorder: Status: Acute Code(s): F19.90 - Other psychoactive substance use, unspecified, uncomplicated Plan 03/01- Increase Gabapentin to 600 mg tid Lorazepam 2 mg po x 1 Lorazepam 0.5 mg q 8h prn 03/02: Patient tearful during assessment. Patient reports feeling uncomfortable from detox. Review of medications, education provided regarding sx mgt. Patient reports passive suicidal ideation with no plan. She is requesting to be referred to a [facility] away from this area. Patient denies HI/VH/AH. Patient educated on: diagnosis and medication risk/benefits Reason for continued inpatient stay Substantial Risk for: harm to self and med/psych decompensation Time Spent With Patient Time: Total time managing care of this patient today _20___ minutes.
[2024-03-02 20:36] VITALS: BP 124/89
[2024-03-03] VITALS (8 sets, daily range): BP systolic 104–131; BP diastolic 59–81; PULSE 90–113; RESP 16–18; TEMP 36.5–37.8; O2SAT 98–100
[2024-03-03] MEDS: Ondansetron ODT 4 MG TAB.RAPDIS TRANSLINGU ×2 (00:35→14:26)
[2024-03-03] MEDS: OLANZapine 5 MG TABLET PO ×3 (00:42→14:27)
[2024-03-03] MEDS: traZODone HCL 50 MG TABLET PO ×2 (00:42→21:19)
[2024-03-03] MEDS: Acetaminophen 325 MG TABLET 650 MG PO ×3 (00:42→21:27)
--- NOTE | 2024-03-03 01:19 | PC.NURSE ---
Vital signs were taken at the time of the patient's 0000 COWS. Her heart rate and temperature were noted to be elevated at that time. Tylenol was given, but for generalized pain rather than fever. Zofran given as the patient reported one episode of vomiting around 0000; this was given prior to other PRNs. Patient retired to bed immediately thereafter. Recheck of temperature reveals she has come down from 100.0 (skin,) to 98.8 (skin.)
[2024-03-03] MEDS: Omeprazole 20 MG CAPSULE.DR PO ×2 (06:54→16:40)
[2024-03-03] MEDS: Dextroamphetamine/Amphetamine XR 10 MG CAP.ER.24H 20 MG PO (08:59)
[2024-03-03] MEDS: Buprenorphine/Naloxone 8/2 mg FILM 1 FILM SUBLINGUAL ×2 (08:59→16:39)
[2024-03-03] MEDS: cefuroxime axetiL 250 MG TABLET PO ×2 (09:00→21:19)
[2024-03-03] MEDS: cloNIDine HCL 0.1 MG TABLET PO ×2 (09:00→14:23)
[2024-03-03] MEDS: Baclofen 10 MG TABLET PO ×3 (09:01→21:26)
[2024-03-03] MEDS: Gabapentin 300 MG CAPSULE 600 MG PO ×3 (09:01→21:19)
[2024-03-03] MEDS: Multivitamin TABLET 1 TAB PO (09:01)
[2024-03-03] MEDS: hydrOXYzine HCL 25 MG TABLET PO (09:04)
[2024-03-03] MEDS: LORazepam 0.5 MG TABLET PO (14:23)
--- NOTE | 2024-03-03 15:18 | P.PNPSI_ITS ---
Subjective Subjective Date of Service: 03/03/24 Reason For Visit: Depression, SI, polysubstance use d/o Interim History: Reports I feel like sh.. Says she is withdrawing. COWS subjective symptoms elevated but negative objectively. Receiving comfort meds. Review of medications, education provided regarding sx mgt. Patient reports passive suicidal ideation with no plan. She is requesting to be referred to a [facility] away from this area. Patient denies HI/VH/AH. Review of Systems Review of Systems Reports significant detox sx. Yes all other systems are reviewed and are negative Mental Status Exam Mental Status Exam Patient Appearance: Appropriate Patient Orientation: Person, Place, Time and Situation Level of Consciousness: Alert Patient Behavior: Appropriate, Talkative, Cooperative, Restless, Good Eye Contact and Crying Mood Description: Depressed Affect Description: Flat Patient Cognition Impaired: No Ability to Follow Directions: Good Speech Pattern: Spontaneous Speech Memory Description: Intact Diagnostics Vital Signs (24Hr): Vital Signs - 24 hr 03/02/24 16:00 03/02/24 20:36 03/03/24 00:10 Temperature 97 F 100.0 F Pulse Rate 93 106 H Respiratory Rate 18 18 Blood Pressure 106/61 124/89 131/81 Pulse Oximetry 98 100 Oxygen Delivery Method Room Air Room Air 03/03/24 08:00 03/03/24 09:00 03/03/24 14:23 Temperature 97.7 F Pulse Rate 90 Respiratory Rate 16 Blood Pressure 110/64 110/64 121/75 Pulse Oximetry 98 Oxygen Delivery Method Room Air BMI result Body Mass Index 25.9 Labs 02/28/24 20:22 02/28/24 20:22 Labs: Laboratory Results - last 48 hr 03/02/24 08:16 Magnesium 2.1 Triglycerides 168 H Cholesterol 172 LDL Cholesterol, Calc 115 H HDL Cholesterol 24 L TSH 3.54 Free T4 0.80 Imaging Radiology Impressions: ITS Impressions Chest X-Ray 02/29/24 13:20 IMPRESSION: Unremarkable examination. Electronically signed by: David Rocha MD 02/29/2024 03:32 PM EDT Medications Medications Current Medications Acetaminophen (Acetaminophen 325 Mg Tablet) 650 mg PO Q6H PRN PRN Reason: Headache/Pain Mild Scale (1-3) Last Admin: 03/03/24 09:01 Dose: 650 mg Al Hydroxide/Mg Hydroxide (Magnesium Hydrox/Alum Hydrox 30 Ml Oral.Susp) 30 ml PO Q6H PRN PRN Reason: Heartburn/Nausea Last Admin: 02/29/24 14:30 Dose: 30 ml Albuterol Sulfate (Albuterol Sulfate 90 Mcg 8 Gm Inhaler) 2 puff INHALE RQ4H PRN PRN Reason: wheeze Amphetamine/Dextroamphetamine (Dextroamphetamine/Amphetamine Xr 10 Mg Cap.Er.24h) 20 mg PO DAILY [facility] Last Admin: 03/03/24 08:59 Dose: 20 mg Baclofen (Baclofen 10 Mg Tablet) 10 mg PO TID PRN PRN Reason: Opiate Withdrawal Last Admin: 03/03/24 14:23 Dose: 10 mg Buprenorphine/Naloxone (Buprenorphine/Naloxone 8/2 Mg Film) 1 film SUBLINGUAL BID@0800,1700 [facility] Last Admin: 03/03/24 08:59 Dose: 1 film Cefuroxime Axetil (Cefuroxime Axetil 250 Mg Tablet) 250 mg PO BID [facility] Stop: 03/06/24 09:01 Last Admin: 03/03/24 09:00 Dose: 250 mg Clonidine HCl (Clonidine Hcl 0.1 Mg Tablet) 0.1 mg PO TID [facility]; Protocol Last Admin: 03/03/24 14:23 Dose: 0.1 mg Gabapentin (Gabapentin 300 Mg Capsule) 600 mg PO TID [facility] Last Admin: 03/03/24 14:23 Dose: 600 mg Hydroxyzine HCl (Hydroxyzine Hcl 25 Mg Tablet) 25 mg PO Q6H PRN PRN Reason: Anxiety Last Admin: 03/03/24 09:04 Dose: 25 mg Loperamide HCl (Loperamide Hcl 2 Mg Capsule) 4 mg PO Q4H PRN PRN Reason: Diarrhea Lorazepam (Lorazepam 0.5 Mg Tablet) 0.5 mg PO Q8H PRN PRN Reason: anxiety/restlessness Last Admin: 03/03/24 14:23 Dose: 0.5 mg Magnesium Hydroxide (Milk Of Magnesia 30 Ml Oral.Susp) 30 ml PO DAILY PRN PRN Reason: Constipation Multivitamins/Vitamin C (Multivitamin Tablet) 1 tab PO DAILY [facility] Last Admin: 03/03/24 09:01 Dose: 1 tab Nicotine (Nicotine 21 Mg Patch.Td24) 21 mg TRANSDERMA DAILY PRN PRN Reason: Nicotine Cravings Nicotine Polacrilex (Nicotine Polacrilex 2 Mg Gum) 4 mg BUCCAL Q2H PRN PRN Reason: Nicotine Cravings Olanzapine (Olanzapine 5 Mg Tablet) 5 mg PO Q4H PRN PRN Reason: agitation Last Admin: 03/03/24 14:27 Dose: 5 mg Omeprazole (Omeprazole 20 Mg Capsule.Dr) 20 mg PO BID@0630,1630 [facility] Last Admin: 03/03/24 06:54 Dose: 20 mg Ondansetron HCl (Ondansetron Odt 4 Mg Tab.Rapdis) 4 mg TRANSLINGU Q4H PRN PRN Reason: Nausea and Vomiting Last Admin: 03/03/24 14:26 Dose: 4 mg Trazodone HCl (Trazodone Hcl 50 Mg Tablet) 50 mg PO BEDTIME MRX1 PRN PRN Reason: Insomnia Last Admin: 03/03/24 00:42 Dose: 50 mg Allergies Allergies Allergy/AdvReac Type Severity Reaction Status Date / Time strawberry Allergy Anaphylaxis Verified 02/28/24 19:11 Assessment & Plan Assessment & Plan (1) Depression: Status: Acute Code(s): F32.A - Depression, unspecified (2) Polysubstance use disorder: Status: Acute Code(s): F19.90 - Other psychoactive substance use, unspecified, uncomplicated Plan 03/01- Increase Gabapentin to 600 mg tid Lorazepam 2 mg po x 1 Lorazepam 0.5 mg q 8h prn 03/02: Patient tearful during assessment. Patient reports feeling uncomfortable from detox. Review of medications, education provided regarding sx mgt. Patient reports passive suicidal ideation with no plan. She is requesting to be referred to a CSS away from this area. Patient denies HI/VH/AH. 03/03: Increase Clonidine to 0.2 mg TID with holding parameters. Reason for continued inpatient stay Substantial Risk for: harm to self, inability to function and rapid decompensation Time Spent With Patient Time: Total time managing care of this patient today ____ minutes.
[2024-03-03] MEDS: cloNIDine HCL 0.2 MG TABLET PO (21:14)
[2024-03-04] VITALS: PULSE 113
[2024-03-04] MEDS: Omeprazole 20 MG CAPSULE.DR PO ×2 (07:30→14:47)
[2024-03-04 08:00] VITALS: BP 107/61; PULSE 96; RESP 16; TEMP 36.9; O2SAT 98
[2024-03-04] MEDS: Acetaminophen 325 MG TABLET 650 MG PO (08:59)
[2024-03-04] MEDS: Buprenorphine/Naloxone 8/2 mg FILM 1 FILM SUBLINGUAL ×2 (08:59→16:55)
[2024-03-04 09:00] VITALS: BP 122/70
[2024-03-04] MEDS: Gabapentin 300 MG CAPSULE 600 MG PO ×3 (09:00→21:27)
[2024-03-04] MEDS: Baclofen 10 MG TABLET PO ×3 (09:00→21:27)
[2024-03-04] MEDS: hydrOXYzine HCL 25 MG TABLET PO ×2 (09:00→21:26)
[2024-03-04] MEDS: Multivitamin TABLET 1 TAB PO (09:00)
[2024-03-04] MEDS: cloNIDine HCL 0.2 MG TABLET PO ×3 (09:00→21:27)
[2024-03-04] MEDS: Dextroamphetamine/Amphetamine XR 10 MG CAP.ER.24H 20 MG PO (09:00)
[2024-03-04] MEDS: OLANZapine 5 MG TABLET PO (09:01)
[2024-03-04] MEDS: cefuroxime axetiL 250 MG TABLET PO ×2 (09:01→21:27)
--- NOTE | 2024-03-04 09:47 | P.PNPSI_ITS ---
Subjective Subjective Date of Service: 03/04/24 Reason For Visit: Depression, SI, polysubstance use d/o Interim History: Reports I feel like crap Says she is withdrawing. However says she is feeling much better than yesterday. Says the increase in Clonidine helped with her withdrawal symptoms. Slept well. Patient denies suicidal ideation today. She is requesting to be referred to a CSS away from this area. Patient denies HI/VH/AH. Review of Systems Review of Systems Reports significant detox sx. Yes all other systems are reviewed and are negative Mental Status Exam Mental Status Exam Patient Appearance: Appropriate Patient Orientation: Person, Place, Time and Situation Level of Consciousness: Alert Patient Behavior: Appropriate, Talkative, Cooperative, Restless, Good Eye Contact and Crying Mood Description: Depressed Affect Description: Flat Patient Cognition Impaired: No Ability to Follow Directions: Good Speech Pattern: Spontaneous Speech Memory Description: Intact Diagnostics Vital Signs (24Hr): Vital Signs - 24 hr 03/03/24 14:23 03/03/24 20:00 03/03/24 21:14 Temperature 97.8 F Pulse Rate 108 H Blood Pressure 121/75 118/59 L 104/69 Pulse Oximetry 98 Oxygen Delivery Method Room Air 03/03/24 21:15 03/04/24 09:00 Temperature 98.9 F Pulse Rate 113 H Blood Pressure 104/69 122/70 Pulse Oximetry Oxygen Delivery Method BMI result Body Mass Index 25.9 Labs 02/28/24 20:22 02/28/24 20:22 Labs: Laboratory Results - last 48 hr 03/02/24 08:16 Magnesium 2.1 Triglycerides 168 H Cholesterol 172 LDL Cholesterol, Calc 115 H HDL Cholesterol 24 L TSH 3.54 Free T4 0.80 Imaging Radiology Impressions: ITS Impressions Chest X-Ray 02/29/24 13:20 IMPRESSION: Unremarkable examination. Electronically signed by: David Rocha MD 02/29/2024 03:32 PM EDT Medications Medications Current Medications Acetaminophen (Acetaminophen 325 Mg Tablet) 650 mg PO Q6H PRN PRN Reason: Headache/Pain Mild Scale (1-3) Last Admin: 03/04/24 08:59 Dose: 650 mg Al Hydroxide/Mg Hydroxide (Magnesium Hydrox/Alum Hydrox 30 Ml Oral.Susp) 30 ml PO Q6H PRN PRN Reason: Heartburn/Nausea Last Admin: 02/29/24 14:30 Dose: 30 ml Albuterol Sulfate (Albuterol Sulfate 90 Mcg 8 Gm Inhaler) 2 puff INHALE RQ4H PRN PRN Reason: wheeze Amphetamine/Dextroamphetamine (Dextroamphetamine/Amphetamine Xr 10 Mg Cap.Er.24h) 20 mg PO DAILY [facility] Last Admin: 03/04/24 09:00 Dose: 20 mg Baclofen (Baclofen 10 Mg Tablet) 10 mg PO TID PRN PRN Reason: Opiate Withdrawal Last Admin: 03/04/24 09:00 Dose: 10 mg Buprenorphine/Naloxone (Buprenorphine/Naloxone 8/2 Mg Film) 1 film SUBLINGUAL BID@0800,1700 [facility] Last Admin: 03/04/24 08:59 Dose: 1 film Cefuroxime Axetil (Cefuroxime Axetil 250 Mg Tablet) 250 mg PO BID [facility] Stop: 03/06/24 09:01 Last Admin: 03/04/24 09:01 Dose: 250 mg Clonidine HCl (Clonidine Hcl 0.2 Mg Tablet) 0.2 mg PO TID [facility]; Protocol Last Admin: 03/04/24 09:00 Dose: 0.2 mg Gabapentin (Gabapentin 300 Mg Capsule) 600 mg PO TID [facility] Last Admin: 03/04/24 09:00 Dose: 600 mg Hydroxyzine HCl (Hydroxyzine Hcl 25 Mg Tablet) 25 mg PO Q6H PRN PRN Reason: Anxiety Last Admin: 03/04/24 09:00 Dose: 25 mg Loperamide HCl (Loperamide Hcl 2 Mg Capsule) 4 mg PO Q4H PRN PRN Reason: Diarrhea Lorazepam (Lorazepam 0.5 Mg Tablet) 0.5 mg PO Q8H PRN PRN Reason: anxiety/restlessness Last Admin: 03/03/24 14:23 Dose: 0.5 mg Magnesium Hydroxide (Milk Of Magnesia 30 Ml Oral.Susp) 30 ml PO DAILY PRN PRN Reason: Constipation Multivitamins/Vitamin C (Multivitamin Tablet) 1 tab PO DAILY [facility] Last Admin: 03/04/24 09:00 Dose: 1 tab Nicotine (Nicotine 21 Mg Patch.Td24) 21 mg TRANSDERMA DAILY PRN PRN Reason: Nicotine Cravings Nicotine Polacrilex (Nicotine Polacrilex 2 Mg Gum) 4 mg BUCCAL Q2H PRN PRN Reason: Nicotine Cravings Olanzapine (Olanzapine 5 Mg Tablet) 5 mg PO Q4H PRN PRN Reason: agitation Last Admin: 03/04/24 09:01 Dose: 5 mg Omeprazole (Omeprazole 20 Mg Capsule.Dr) 20 mg PO BID@0630,1630 [facility] Last Admin: 03/04/24 07:30 Dose: 20 mg Ondansetron HCl (Ondansetron Odt 4 Mg Tab.Rapdis) 4 mg TRANSLINGU Q4H PRN PRN Reason: Nausea and Vomiting Last Admin: 03/03/24 14:26 Dose: 4 mg Trazodone HCl (Trazodone Hcl 50 Mg Tablet) 50 mg PO BEDTIME MRX1 PRN PRN Reason: Insomnia Last Admin: 03/03/24 21:19 Dose: 50 mg Allergies Allergies Allergy/AdvReac Type Severity Reaction Status Date / Time strawberry Allergy Anaphylaxis Verified 02/28/24 19:11 Assessment & Plan Assessment & Plan (1) Depression: Status: Acute Code(s): F32.A - Depression, unspecified (2) Polysubstance use disorder: Status: Acute Code(s): F19.90 - Other psychoactive substance use, unspecified, uncomplicated Plan 03/01- Increase Gabapentin to 600 mg tid Lorazepam 2 mg po x 1 Lorazepam 0.5 mg q 8h prn 03/02: Patient tearful during assessment. Patient reports feeling uncomfortable from detox. Review of medications, education provided regarding sx mgt. Patient reports passive suicidal ideation with no plan. She is requesting to be referred to a CSS away from this area. Patient denies HI/VH/AH. 03/03: Increase Clonidine to 0.2 mg TID with holding parameters. 929: Continue current management and treatment plan. Reason for continued inpatient stay Substantial Risk for: harm to self, inability to function and rapid decompensation Time Spent With Patient Time: Total time managing care of this patient today ____ minutes.
[2024-03-04 14:47] VITALS: BP 114/74
--- NOTE | 2024-03-04 19:00 | PC.NURSE ---
Suboxone late entry 0900, suboxone given late as Joanne was asleep, didnt want to take it.
[2024-03-04 19:52] VITALS: BP 113/60; PULSE 99; RESP 18; TEMP 36.8; O2SAT 100
[2024-03-04] MEDS: LORazepam 0.5 MG TABLET PO (21:27)
[2024-03-04] MEDS: traZODone HCL 50 MG TABLET PO (21:28)
[2024-03-05] VITALS: PULSE 68
[2024-03-05] MEDS: LORazepam 0.5 MG TABLET PO (06:27)
[2024-03-05] MEDS: Omeprazole 20 MG CAPSULE.DR PO ×2 (06:27→16:44)
[2024-03-05 08:21] VITALS: BP 94/56; PULSE 75; TEMP 36.4; O2SAT 96
--- NOTE | 2024-03-05 08:32 | P.PNPSI_ITS ---
Subjective Subjective Date of Service: 03/05/24 Reason For Visit: Depression, SI, polysubstance use d/o Interim History: Met with patient; discussed with team; reviewed chart Patient reports that she is depressed. She says however that SI is chronic and just comes and goes depending on the situation or her mood; she is able to ignore it. Patient reports that for 2 weeks she was at [facility] but left think her boyfriend was sober; he was not so she wanted to go back to [facility] but they said she had to go get evaluated and to reapply. Patient said she was sober for the 2 weeks while she was there and only relapsed 1 day. However she says she continues to have withdrawal symptoms at this time. Pie Cutter reviewed medications and patient said she wants something for anxiety but no one will give her anything. She agrees to start Prozac which she said was helpful in the past. Today patient had a verbal altercation with a peer whom she is feeling triggered by. Mental Status Exam Mental Status Exam Narrative: Pt is alert and oriented; behavior is cooperative, anxious; patient is not in distress; dressed in casual attire with unkempt hair but adequate hygiene; mood is described as Depressed.. Anxious and affect congruent; eye contact appropriate; Speech is normal rate, volume and prosody and not pressured; some of both psychomotor agitation/retardation present; thought process is goal directed though concrete; Thought content is on getting back to [facility], tx; otherwise pertinent to relevant topics and without any delusional content, paranoid ideations or grandiosity; intermittent SI but patient reports it is passive; no HI; There is no evidence of perceptual disturbance. Patients insight and judgment impaired Diagnostics Vital Signs (24Hr): Vital Signs - 24 hr 03/04/24 09:00 03/04/24 14:47 03/04/24 19:52 Temperature 98.2 F Pulse Rate 99 Respiratory Rate 18 Blood Pressure 122/70 114/74 113/60 Pulse Oximetry 100 Oxygen Delivery Method Room Air 03/05/24 08:21 Temperature 97.6 F Pulse Rate 75 Respiratory Rate Blood Pressure 94/56 L Pulse Oximetry 96 Oxygen Delivery Method Room Air BMI result Body Mass Index 25.9 Labs 02/28/24 20:22 02/28/24 20:22 Imaging Radiology Impressions: ITS Impressions Chest X-Ray 02/29/24 13:20 IMPRESSION: Unremarkable examination. Electronically signed by: David Rocha MD 02/29/2024 03:32 PM EDT RP Medications Medications Current Medications Acetaminophen (Acetaminophen 325 Mg Tablet) 650 mg PO Q6H PRN PRN Reason: Headache/Pain Mild Scale (1-3) Last Admin: 03/04/24 08:59 Dose: 650 mg Al Hydroxide/Mg Hydroxide (Magnesium Hydrox/Alum Hydrox 30 Ml Oral.Susp) 30 ml PO Q6H PRN PRN Reason: Heartburn/Nausea Last Admin: 02/29/24 14:30 Dose: 30 ml Albuterol Sulfate (Albuterol Sulfate 90 Mcg 8 Gm Inhaler) 2 puff INHALE RQ4H PRN PRN Reason: wheeze Amphetamine/Dextroamphetamine (Dextroamphetamine/Amphetamine Xr 10 Mg Cap.Er.24h) 20 mg PO DAILY [facility] Last Admin: 03/04/24 09:00 Dose: 20 mg Baclofen (Baclofen 10 Mg Tablet) 10 mg PO TID PRN PRN Reason: Opiate Withdrawal Last Admin: 03/04/24 21:27 Dose: 10 mg Buprenorphine/Naloxone (Buprenorphine/Naloxone 8/2 Mg Film) 1 film SUBLINGUAL BID@0900,1700 [facility] Cefuroxime Axetil (Cefuroxime Axetil 250 Mg Tablet) 250 mg PO BID [facility] Stop: 03/06/24 09:01 Last Admin: 03/04/24 21:27 Dose: 250 mg Clonidine HCl (Clonidine Hcl 0.2 Mg Tablet) 0.2 mg PO TID [facility]; Protocol Last Admin: 03/04/24 21:27 Dose: 0.2 mg Gabapentin (Gabapentin 300 Mg Capsule) 600 mg PO TID [facility] Last Admin: 03/04/24 21:27 Dose: 600 mg Hydroxyzine HCl (Hydroxyzine Hcl 25 Mg Tablet) 25 mg PO Q6H PRN PRN Reason: Anxiety Last Admin: 03/04/24 21:26 Dose: 25 mg Loperamide HCl (Loperamide Hcl 2 Mg Capsule) 4 mg PO Q4H PRN PRN Reason: Diarrhea Lorazepam (Lorazepam 0.5 Mg Tablet) 0.5 mg PO Q8H PRN PRN Reason: anxiety/restlessness Last Admin: 03/05/24 06:27 Dose: 0.5 mg Magnesium Hydroxide (Milk Of Magnesia 30 Ml Oral.Susp) 30 ml PO DAILY PRN PRN Reason: Constipation Multivitamins/Vitamin C (Multivitamin Tablet) 1 tab PO DAILY [facility] Last Admin: 03/04/24 09:00 Dose: 1 tab Nicotine (Nicotine 21 Mg Patch.Td24) 21 mg TRANSDERMA DAILY PRN PRN Reason: Nicotine Cravings Nicotine Polacrilex (Nicotine Polacrilex 2 Mg Gum) 4 mg BUCCAL Q2H PRN PRN Reason: Nicotine Cravings Olanzapine (Olanzapine 5 Mg Tablet) 5 mg PO Q4H PRN PRN Reason: agitation Last Admin: 03/04/24 09:01 Dose: 5 mg Omeprazole (Omeprazole 20 Mg Capsule.Dr) 20 mg PO BID@0630,1630 [facility] Last Admin: 03/05/24 06:27 Dose: 20 mg Ondansetron HCl (Ondansetron Odt 4 Mg Tab.Rapdis) 4 mg TRANSLINGU Q4H PRN PRN Reason: Nausea and Vomiting Last Admin: 03/03/24 14:26 Dose: 4 mg Trazodone HCl (Trazodone Hcl 50 Mg Tablet) 50 mg PO BEDTIME MRX1 PRN PRN Reason: Insomnia Last Admin: 03/04/24 21:28 Dose: 50 mg Allergies Allergies Allergy/AdvReac Type Severity Reaction Status Date / Time strawberry Allergy Anaphylaxis Verified 02/28/24 19:11 Assessment & Plan Assessment & Plan (1) Depression: Status: Acute Code(s): F32.A - Depression, unspecified (2) Polysubstance use disorder: Status: Acute Code(s): F19.90 - Other psychoactive substance use, unspecified, uncomplicated Plan 03/01- Increase Gabapentin to 600 mg tid Lorazepam 2 mg po x 1 Lorazepam 0.5 mg q 8h prn 03/02: Patient tearful during assessment. Patient reports feeling uncomfortable from detox. Review of medications, education provided regarding sx mgt. Patient reports passive suicidal ideation with no plan. She is requesting to be referred to a [facility] away from this area. Patient denies HI/VH/AH. 03/03: Increase Clonidine to 0.2 mg TID with holding parameters. 929: Continue current management and treatment plan. 03/05 start Prozac for depression, anxiety; patient says she was on in the past and that worked well. Reports depression anxiety but only passive SI which is chronic. Feels that if she could get to [facility] she would be doing better right away Patient educated on: diagnosis, medication risk/benefits, substance abuse and therapeutic strategies Informed Consent: understands Reason for continued inpatient stay Substantial Risk for: rapid decompensation Time Spent With Patient Time: Total time managing care of this patient today ____ minutes.
[2024-03-05] MEDS: Gabapentin 300 MG CAPSULE 600 MG PO ×3 (08:48→20:52)
[2024-03-05] MEDS: cefuroxime axetiL 250 MG TABLET PO ×2 (08:49→20:52)
[2024-03-05] MEDS: Dextroamphetamine/Amphetamine XR 10 MG CAP.ER.24H 20 MG PO (08:50)
[2024-03-05] MEDS: Multivitamin TABLET 1 TAB PO (08:50)
[2024-03-05] MEDS: cloNIDine HCL 0.2 MG TABLET PO ×3 (08:51→20:52)
[2024-03-05] MEDS: Buprenorphine/Naloxone 8/2 mg FILM 1 FILM SUBLINGUAL ×2 (08:55→16:45)
[2024-03-05 08:58] VITALS: PULSE 75
[2024-03-05] MEDS: hydrOXYzine HCL 25 MG TABLET PO ×2 (13:44→20:51)
[2024-03-05 15:26] VITALS: BP 98/62
[2024-03-05] MEDS: FLUoxetine HCl 10 MG CAPSULE PO (16:06)
[2024-03-05] MEDS: OLANZapine 5 MG TABLET PO (16:06)
[2024-03-05 20:00] VITALS: BP 121/60; PULSE 99; RESP 16; TEMP 36.7; O2SAT 98
[2024-03-05] MEDS: traZODone HCL 50 MG TABLET PO (20:51)
[2024-03-05 20:52] VITALS: BP 106/59
[2024-03-06] MEDS: Baclofen 10 MG TABLET PO (02:33)
[2024-03-06] MEDS: Omeprazole 20 MG CAPSULE.DR PO ×2 (07:00→16:40)
[2024-03-06 08:20] VITALS: BP 116/57; PULSE 95; RESP 18; TEMP 36.6; O2SAT 98
[2024-03-06] MEDS: Multivitamin TABLET 1 TAB PO (08:44)
[2024-03-06] MEDS: Dextroamphetamine/Amphetamine XR 10 MG CAP.ER.24H 20 MG PO (08:44)
[2024-03-06] MEDS: cefuroxime axetiL 250 MG TABLET PO (08:44)
[2024-03-06] MEDS: cloNIDine HCL 0.2 MG TABLET PO ×3 (08:44→21:29)
[2024-03-06] MEDS: Gabapentin 300 MG CAPSULE 600 MG PO ×3 (08:44→21:29)
[2024-03-06] MEDS: FLUoxetine HCl 10 MG CAPSULE PO (08:44)
[2024-03-06] MEDS: Buprenorphine/Naloxone 8/2 mg FILM 1 FILM SUBLINGUAL ×2 (08:46→16:40)
[2024-03-06] MEDS: hydrOXYzine HCL 25 MG TABLET PO (11:09)
[2024-03-06] MEDS: OLANZapine 5 MG TABLET PO (11:09)
[2024-03-06 14:10] VITALS: BP 93/60
--- NOTE | 2024-03-06 16:15 | HO.PSYCHPN ---
Subjective Subjective Date of Service: 03/06/24 Reason For Visit: Depression, SI, polysubstance use d/o Subjective Notes: 3 Day Interim History: Reviewed with Dr. Reed. Active on unit. Irritable at times. Pt reports feeling anxious and depressed because I'm here and want to be at [facility] . Pt reports feeling a little better d/t her medications. denies SI/HI/VH/AH. Medication Compliance: Yes Side effects from medications: No Mental Status Exam Mental Status Exam Narrative: Pt is alert and oriented; behavior is cooperative, anxious; dressed in casual attire; mood is described as Depressed.. Anxious ; eye contact appropriate; Speech is normal rate, volume and not pressured; thought process is goal directed though concrete; Thought content is on getting back to [facility], tx; denies SI/HI/VH/AH. Diagnostics Vital Signs (24Hr): Vital Signs - 24 hr 03/05/24 20:00 03/05/24 20:52 03/06/24 08:20 Temperature 98.0 F 97.9 F Pulse Rate 99 95 Respiratory Rate 16 18 Blood Pressure 121/60 106/59 L 116/57 L Pulse Oximetry 98 98 Oxygen Delivery Method Room Air Room Air 03/06/24 14:10 Temperature Pulse Rate Respiratory Rate Blood Pressure 93/60 Pulse Oximetry Oxygen Delivery Method BMI result Body Mass Index 25.9 Labs 02/28/24 20:22 02/28/24 20:22 Imaging Radiology Impressions: ITS Impressions Chest X-Ray 02/29/24 13:20 IMPRESSION: Unremarkable examination. Electronically signed by: David Rocha MD 02/29/2024 03:32 PM EDT Medications Medications Current Medications Acetaminophen (Acetaminophen 325 Mg Tablet) 650 mg PO Q6H PRN PRN Reason: Headache/Pain Mild Scale (1-3) Last Admin: 03/04/24 08:59 Dose: 650 mg Al Hydroxide/Mg Hydroxide (Magnesium Hydrox/Alum Hydrox 30 Ml Oral.Susp) 30 ml PO Q6H PRN PRN Reason: Heartburn/Nausea Last Admin: 02/29/24 14:30 Dose: 30 ml Albuterol Sulfate (Albuterol Sulfate 90 Mcg 8 Gm Inhaler) 2 puff INHALE RQ4H PRN PRN Reason: wheeze Amphetamine/Dextroamphetamine (Dextroamphetamine/Amphetamine Xr 10 Mg Cap.Er.24h) 20 mg PO DAILY [facility] Last Admin: 03/06/24 08:44 Dose: 20 mg Baclofen (Baclofen 10 Mg Tablet) 10 mg PO TID PRN PRN Reason: Opiate Withdrawal Last Admin: 03/06/24 02:33 Dose: 10 mg Buprenorphine/Naloxone (Buprenorphine/Naloxone 8/2 Mg Film) 1 film SUBLINGUAL BID@0900,1700 [facility] Last Admin: 03/06/24 08:46 Dose: 1 film Clonidine HCl (Clonidine Hcl 0.2 Mg Tablet) 0.2 mg PO TID [facility]; Protocol Last Admin: 03/06/24 14:10 Dose: 0.2 mg Fluoxetine HCl (Fluoxetine Hcl 10 Mg Capsule) 10 mg PO DAILY [facility] Last Admin: 03/06/24 08:44 Dose: 10 mg Gabapentin (Gabapentin 300 Mg Capsule) 600 mg PO TID [facility] Last Admin: 03/06/24 14:10 Dose: 600 mg Hydroxyzine HCl (Hydroxyzine Hcl 25 Mg Tablet) 25 mg PO Q6H PRN PRN Reason: Anxiety Last Admin: 03/06/24 11:09 Dose: 25 mg Loperamide HCl (Loperamide Hcl 2 Mg Capsule) 4 mg PO Q4H PRN PRN Reason: Diarrhea Magnesium Hydroxide (Milk Of Magnesia 30 Ml Oral.Susp) 30 ml PO DAILY PRN PRN Reason: Constipation Multivitamins/Vitamin C (Multivitamin Tablet) 1 tab PO DAILY [facility] Last Admin: 03/06/24 08:44 Dose: 1 tab Nicotine (Nicotine 21 Mg Patch.Td24) 21 mg TRANSDERMA DAILY PRN PRN Reason: Nicotine Cravings Nicotine Polacrilex (Nicotine Polacrilex 2 Mg Gum) 4 mg BUCCAL Q2H PRN PRN Reason: Nicotine Cravings Olanzapine (Olanzapine 5 Mg Tablet) 5 mg PO Q4H PRN PRN Reason: agitation Last Admin: 03/06/24 11:09 Dose: 5 mg Omeprazole (Omeprazole 20 Mg Capsule.Dr) 20 mg PO BID@0630,1630 [facility] Last Admin: 03/06/24 07:00 Dose: 20 mg Ondansetron HCl (Ondansetron Odt 4 Mg Tab.Rapdis) 4 mg TRANSLINGU Q4H PRN PRN Reason: Nausea and Vomiting Last Admin: 03/03/24 14:26 Dose: 4 mg Trazodone HCl (Trazodone Hcl 50 Mg Tablet) 50 mg PO BEDTIME MRX1 PRN PRN Reason: Insomnia Last Admin: 03/05/24 20:51 Dose: 50 mg Allergies Allergies Allergy/AdvReac Type Severity Reaction Status Date / Time strawberry Allergy Anaphylaxis Verified 02/28/24 19:11 Assessment & Plan Assessment & Plan (1) Depression: Status: Acute Code(s): F32.A - Depression, unspecified (2) Polysubstance use disorder: Status: Acute Code(s): F19.90 - Other psychoactive substance use, unspecified, uncomplicated Plan 03/01- Increase Gabapentin to 600 mg tid Lorazepam 2 mg po x 1 Lorazepam 0.5 mg q 8h prn 03/02: Patient tearful during assessment. Patient reports feeling uncomfortable from detox. Review of medications, education provided regarding sx mgt. Patient reports passive suicidal ideation with no plan. She is requesting to be referred to a [facility] away from this area. Patient denies HI/VH/AH. 03/03: Increase Clonidine to 0.2 mg TID with holding parameters. 929: Continue current management and treatment plan. 03/05 start Prozac for depression, anxiety; patient says she was on in the past and that worked well. Reports depression anxiety but only passive SI which is chronic. Feels that if she could get to [facility] she would be doing better right away 03/06: Active on unit. Irritable at times. Pt reports feeling anxious and depressed because I'm here and want to be at [facility] . Pt reports feeling a little better d/t her medications. denies SI/HI/VH/AH Patient educated on: diagnosis, medication risk/benefits and therapeutic strategies Reason for continued inpatient stay Substantial Risk for: med/psych decompensation Time Spent With Patient Time: Total time managing care of this patient today _20___ minutes.
[2024-03-06 20:00] VITALS: BP 115/63; PULSE 94; RESP 16; TEMP 36.6; O2SAT 98
[2024-03-06 21:29] VITALS: BP 119/53
[2024-03-07] MEDS: Omeprazole 20 MG CAPSULE.DR PO ×2 (07:34→16:31)
[2024-03-07 08:00] VITALS: BP 115/57; PULSE 93; RESP 16; TEMP 36.4; O2SAT 98
[2024-03-07 08:37] VITALS: BP 128/72
[2024-03-07] MEDS: Dextroamphetamine/Amphetamine XR 10 MG CAP.ER.24H 20 MG PO (08:37)
[2024-03-07] MEDS: cloNIDine HCL 0.2 MG TABLET PO ×3 (08:37→19:55)
[2024-03-07] MEDS: Baclofen 10 MG TABLET PO ×2 (08:37→14:27)
[2024-03-07] MEDS: Gabapentin 300 MG CAPSULE 600 MG PO ×3 (08:37→19:54)
[2024-03-07] MEDS: Buprenorphine/Naloxone 8/2 mg FILM 1 FILM SUBLINGUAL ×2 (08:37→16:31)
[2024-03-07] MEDS: FLUoxetine HCl 10 MG CAPSULE PO (08:38)
[2024-03-07] MEDS: Multivitamin TABLET 1 TAB PO (08:43)
--- NOTE | 2024-03-07 12:02 | P.PNPSI_ITS ---
Subjective Subjective Date of Service: 03/07/24 Reason For Visit: Depression, SI, polysubstance use d/o Subjective Notes: 3 Day Interim History: Reviewed with Dr. Reed. Active on unit. Pt reports feeling upset that I'm still here but other than that I'm okay ; pt is hoping [facility] has an open bed for her to be discharged to; she is focused on her sobriety. denies SI/HI/VH/AH. Medication Compliance: Yes Side effects from medications: No Mental Status Exam Mental Status Exam Narrative: Pt is alert and oriented; behavior is cooperative, anxious; dressed in casual attire; mood is described as Depressed.. Anxious ; eye contact appropriate; Speech is normal rate, volume and not pressured; thought process is goal directed though concrete; Thought content is on getting back to [facility], tx; denies SI/HI/VH/AH. Diagnostics Vital Signs (24Hr): Vital Signs - 24 hr 03/06/24 14:10 03/06/24 20:00 03/06/24 21:29 Temperature 97.8 F Pulse Rate 94 Respiratory Rate 16 Blood Pressure 93/60 115/63 119/53 L Pulse Oximetry 98 Oxygen Delivery Method Room Air 03/07/24 08:00 03/07/24 08:37 Temperature 97.5 F Pulse Rate 93 Respiratory Rate 16 Blood Pressure 115/57 L 128/72 Pulse Oximetry 98 Oxygen Delivery Method Room Air BMI result Body Mass Index 25.9 Labs 02/28/24 20:22 02/28/24 20:22 Imaging Radiology Impressions: ITS Impressions Chest X-Ray 02/29/24 13:20 IMPRESSION: Unremarkable examination. Electronically signed by: David Rocha MD 02/29/2024 03:32 PM EDT Medications Medications Current Medications Acetaminophen (Acetaminophen 325 Mg Tablet) 650 mg PO Q6H PRN PRN Reason: Headache/Pain Mild Scale (1-3) Last Admin: 03/04/24 08:59 Dose: 650 mg Al Hydroxide/Mg Hydroxide (Magnesium Hydrox/Alum Hydrox 30 Ml Oral.Susp) 30 ml PO Q6H PRN PRN Reason: Heartburn/Nausea Last Admin: 02/29/24 14:30 Dose: 30 ml Albuterol Sulfate (Albuterol Sulfate 90 Mcg 8 Gm Inhaler) 2 puff INHALE RQ4H PRN PRN Reason: wheeze Amphetamine/Dextroamphetamine (Dextroamphetamine/Amphetamine Xr 10 Mg Cap.Er.24h) 20 mg PO DAILY [facility] Last Admin: 03/07/24 08:37 Dose: 20 mg Baclofen (Baclofen 10 Mg Tablet) 10 mg PO TID PRN PRN Reason: Opiate Withdrawal Last Admin: 03/07/24 08:37 Dose: 10 mg Buprenorphine/Naloxone (Buprenorphine/Naloxone 8/2 Mg Film) 1 film SUBLINGUAL BID@0900,1700 [facility] Last Admin: 03/07/24 08:37 Dose: 1 film Clonidine HCl (Clonidine Hcl 0.2 Mg Tablet) 0.2 mg PO TID [facility]; Protocol Last Admin: 03/07/24 08:37 Dose: 0.2 mg Fluoxetine HCl (Fluoxetine Hcl 10 Mg Capsule) 10 mg PO DAILY [facility] Last Admin: 03/07/24 08:38 Dose: 10 mg Gabapentin (Gabapentin 300 Mg Capsule) 600 mg PO TID [facility] Last Admin: 03/07/24 08:37 Dose: 600 mg Hydroxyzine HCl (Hydroxyzine Hcl 25 Mg Tablet) 25 mg PO Q6H PRN PRN Reason: Anxiety Last Admin: 03/06/24 11:09 Dose: 25 mg Loperamide HCl (Loperamide Hcl 2 Mg Capsule) 4 mg PO Q4H PRN PRN Reason: Diarrhea Magnesium Hydroxide (Milk Of Magnesia 30 Ml Oral.Susp) 30 ml PO DAILY PRN PRN Reason: Constipation Multivitamins/Vitamin C (Multivitamin Tablet) 1 tab PO DAILY [facility] Last Admin: 03/07/24 08:43 Dose: 1 tab Nicotine (Nicotine 21 Mg Patch.Td24) 21 mg TRANSDERMA DAILY PRN PRN Reason: Nicotine Cravings Nicotine Polacrilex (Nicotine Polacrilex 2 Mg Gum) 4 mg BUCCAL Q2H PRN PRN Reason: Nicotine Cravings Olanzapine (Olanzapine 5 Mg Tablet) 5 mg PO Q4H PRN PRN Reason: agitation Last Admin: 03/06/24 11:09 Dose: 5 mg Omeprazole (Omeprazole 20 Mg Capsule.Dr) 20 mg PO BID@0630,1630 [facility] Last Admin: 03/07/24 07:34 Dose: 20 mg Ondansetron HCl (Ondansetron Odt 4 Mg Tab.Rapdis) 4 mg TRANSLINGU Q4H PRN PRN Reason: Nausea and Vomiting Last Admin: 03/03/24 14:26 Dose: 4 mg Trazodone HCl (Trazodone Hcl 50 Mg Tablet) 50 mg PO BEDTIME MRX1 PRN PRN Reason: Insomnia Last Admin: 03/05/24 20:51 Dose: 50 mg Allergies Allergies Allergy/AdvReac Type Severity Reaction Status Date / Time strawberry Allergy Anaphylaxis Verified 02/28/24 19:11 Assessment & Plan Assessment & Plan (1) Depression: Status: Acute Code(s): F32.A - Depression, unspecified (2) Polysubstance use disorder: Status: Acute Code(s): F19.90 - Other psychoactive substance use, unspecified, uncomplicated Plan 03/01- Increase Gabapentin to 600 mg tid Lorazepam 2 mg po x 1 Lorazepam 0.5 mg q 8h prn 03/02: Patient tearful during assessment. Patient reports feeling uncomfortable from detox. Review of medications, education provided regarding sx mgt. Patient reports passive suicidal ideation with no plan. She is requesting to be referred to a [facility] away from this area. Patient denies HI/VH/AH. 03/03: Increase Clonidine to 0.2 mg TID with holding parameters. 929: Continue current management and treatment plan. 03/05 start Prozac for depression, anxiety; patient says she was on in the past and that worked well. Reports depression anxiety but only passive SI which is chronic. Feels that if she [facility] get to [facility] she would be doing better right away 03/06: Active on unit. Irritable at times. Pt reports feeling anxious and depressed because I'm here and want to be at [facility] . Pt reports feeling a little better d/t her medications. denies SI/HI/VH/AH 03/07: Active on unit. Pt reports feeling upset that I'm still here but other than that I'm okay ; pt is hoping [facility] has an open bed for her to be discharged to; she is focused on her sobriety. denies SI/HI/VH/AH. Patient educated on: diagnosis, medication risk/benefits and therapeutic strategies Reason for continued inpatient stay Substantial Risk for: med/psych decompensation Time Spent With Patient Time: Total time managing care of this patient today _20___ minutes.
[2024-03-07] MEDS: hydrOXYzine HCL 25 MG TABLET PO ×2 (14:27→19:54)
[2024-03-07] MEDS: Acetaminophen 325 MG TABLET 650 MG PO ×2 (14:28→19:54)
[2024-03-07] MEDS: traZODone HCL 50 MG TABLET PO (19:54)
[2024-03-07 19:55] VITALS: BP 108/60
[2024-03-07 20:00] VITALS: BP 108/59; PULSE 99; RESP 16; TEMP 36.2; O2SAT 99
[2024-03-08 07:00] VITALS: BMI 29.2
[2024-03-08 08:30] VITALS: BP 97/65; PULSE 115; RESP 16; TEMP 36.5; O2SAT 100
--- NOTE | 2024-03-08 09:05 | HO.PSYCHPN ---
Subjective Subjective Date of Service: 03/08/24 Reason For Visit: Depression, SI, polysubstance use d/o Subjective Notes: 3 Day Interim History: Reviewed with Dr. Reed. Active on unit. Pt reports feeling okay today . Per social work, bed was not available at [facility] today. Patient aware; social work to check if bed is available tomorrow. Three day notice up tomorrow. Patient denies any issues at this time. She is looking forward to discharging from the unit. denies SI/HI/VH/AH. Medication Compliance: Yes Side effects from medications: No Attending Groups: Intermittent Review of Systems Constitutional: Reports as per HPI Eyes: Reports as per HPI Reports as per HPI Cardiovascular: Reports as per HPI Respiratory: Reports as per HPI Reports as per HPI Allergic/Immunologic: Reports as per HPI Mental Status Exam Mental Status Exam Narrative: Pt is alert and oriented; behavior is cooperative and calm; dressed in casual attire; mood is described as okay ; eye contact appropriate; Speech is normal rate, volume and not pressured; thought process is goal directed though concrete; Thought content is on getting back to [facility]; denies SI/HI/VH/AH. Diagnostics Vital Signs (24Hr): Vital Signs - 24 hr 03/07/24 19:55 03/07/24 20:00 03/08/24 08:30 Temperature 97.1 F 97.7 F Pulse Rate 99 115 H Respiratory Rate 16 16 Blood Pressure 108/60 108/59 L 97/65 Pulse Oximetry 99 100 Oxygen Delivery Method Room Air Room Air BMI result Body Mass Index 25.9 Labs 02/28/24 20:22 02/28/24 20:22 Imaging Radiology Impressions: ITS Impressions Chest X-Ray 02/29/24 13:20 IMPRESSION: Unremarkable examination. Electronically signed by: David Rocha MD 02/29/2024 03:32 PM EDT RP Medications Medications Current Medications Acetaminophen (Acetaminophen 325 Mg Tablet) 650 mg PO Q6H PRN PRN Reason: Headache/Pain Mild Scale (1-3) Last Admin: 03/07/24 19:54 Dose: 650 mg Al Hydroxide/Mg Hydroxide (Magnesium Hydrox/Alum Hydrox 30 Ml Oral.Susp) 30 ml PO Q6H PRN PRN Reason: Heartburn/Nausea Last Admin: 02/29/24 14:30 Dose: 30 ml Albuterol Sulfate (Albuterol Sulfate 90 Mcg 8 Gm Inhaler) 2 puff INHALE RQ4H PRN PRN Reason: wheeze Amphetamine/Dextroamphetamine (Dextroamphetamine/Amphetamine Xr 10 Mg Cap.Er.24h) 20 mg PO DAILY [facility] Last Admin: 03/07/24 08:37 Dose: 20 mg Baclofen (Baclofen 10 Mg Tablet) 10 mg PO TID PRN PRN Reason: Opiate Withdrawal Last Admin: 03/07/24 14:27 Dose: 10 mg Buprenorphine/Naloxone (Buprenorphine/Naloxone 8/2 Mg Film) 1 film SUBLINGUAL BID@0900,1700 [facility] Last Admin: 03/07/24 16:31 Dose: 1 film Clonidine HCl (Clonidine Hcl 0.2 Mg Tablet) 0.2 mg PO TID [facility]; Protocol Last Admin: 03/07/24 19:55 Dose: 0.2 mg Fluoxetine HCl (Fluoxetine Hcl 10 Mg Capsule) 10 mg PO DAILY [facility] Last Admin: 03/07/24 08:38 Dose: 10 mg Gabapentin (Gabapentin 300 Mg Capsule) 600 mg PO TID [facility] Last Admin: 03/07/24 19:54 Dose: 600 mg Hydroxyzine HCl (Hydroxyzine Hcl 25 Mg Tablet) 25 mg PO Q6H PRN PRN Reason: Anxiety Last Admin: 03/07/24 19:54 Dose: 25 mg Loperamide HCl (Loperamide Hcl 2 Mg Capsule) 4 mg PO Q4H PRN PRN Reason: Diarrhea Magnesium Hydroxide (Milk Of Magnesia 30 Ml Oral.Susp) 30 ml PO DAILY PRN PRN Reason: Constipation Multivitamins/Vitamin C (Multivitamin Tablet) 1 tab PO DAILY [facility] Last Admin: 03/07/24 08:43 Dose: 1 tab Nicotine (Nicotine 21 Mg Patch.Td24) 21 mg TRANSDERMA DAILY PRN PRN Reason: Nicotine Cravings Nicotine Polacrilex (Nicotine Polacrilex 2 Mg Gum) 4 mg BUCCAL Q2H PRN PRN Reason: Nicotine Cravings Olanzapine (Olanzapine 5 Mg Tablet) 5 mg PO Q4H PRN PRN Reason: agitation Last Admin: 03/06/24 11:09 Dose: 5 mg Omeprazole (Omeprazole 20 Mg Capsule.Dr) 20 mg PO BID@0630,1630 [facility] Last Admin: 03/07/24 16:31 Dose: 20 mg Ondansetron HCl (Ondansetron Odt 4 Mg Tab.Rapdis) 4 mg TRANSLINGU Q4H PRN PRN Reason: Nausea and Vomiting Last Admin: 03/03/24 14:26 Dose: 4 mg Trazodone HCl (Trazodone Hcl 50 Mg Tablet) 50 mg PO BEDTIME MRX1 PRN PRN Reason: Insomnia Last Admin: 03/07/24 19:54 Dose: 50 mg Allergies Allergies Allergy/AdvReac Type Severity Reaction Status Date / Time strawberry Allergy Anaphylaxis Verified 02/28/24 19:11 Assessment & Plan Assessment & Plan (1) Depression: Status: Acute Code(s): F32.A - Depression, unspecified (2) Polysubstance use disorder: Status: Acute Code(s): F19.90 - Other psychoactive substance use, unspecified, uncomplicated Plan 03/01- Increase Gabapentin to 600 mg tid Lorazepam 2 mg po x 1 Lorazepam 0.5 mg q 8h prn 03/02: Patient tearful during assessment. Patient reports feeling uncomfortable from detox. Review of medications, education provided regarding sx mgt. Patient reports passive suicidal ideation with no plan. She is requesting to be referred to a CSS away from this area. Patient denies HI/VH/AH. 03/03: Increase Clonidine to 0.2 mg TID with holding parameters. 929: Continue current management and treatment plan. 03/05 start Prozac for depression, anxiety; patient says she was on in the past and that worked well. Reports depression anxiety but only passive SI which is chronic. Feels that if she could get to [facility] she would be doing better right away 03/06: Active on unit. Irritable at times. Pt reports feeling anxious and depressed because I'm here and want to be at [facility] . Pt reports feeling a little better d/t her medications. denies SI/HI/VH/AH 03/07: Active on unit. Pt reports feeling upset that I'm still here but other than that I'm okay ; pt is hoping [facility] has an open bed for her to be discharged to; she is focused on her sobriety. denies SI/HI/VH/AH. 03/08: Active on unit. Pt reports feeling okay today . Per social work, bed was not available at [facility] today. Patient aware; social work to check if bed is available tomorrow. Three day notice up tomorrow. Patient denies any issues at this time. She is looking forward to discharging from the unit. denies SI/HI/VH/AH. Patient educated on: diagnosis, medication risk/benefits and therapeutic strategies Reason for continued inpatient stay Substantial Risk for: stable for discharge Time Spent With Patient Time: Total time managing care of this patient today _20___ minutes.
[2024-03-08] MEDS: Omeprazole 20 MG CAPSULE.DR PO ×2 (09:18→17:30)
[2024-03-08] MEDS: cloNIDine HCL 0.2 MG TABLET PO ×3 (09:19→20:25)
[2024-03-08] MEDS: Buprenorphine/Naloxone 8/2 mg FILM 1 FILM SUBLINGUAL ×2 (09:19→17:30)
[2024-03-08] MEDS: Dextroamphetamine/Amphetamine XR 10 MG CAP.ER.24H 20 MG PO (09:19)
[2024-03-08] MEDS: Gabapentin 300 MG CAPSULE 600 MG PO ×3 (09:19→20:25)
[2024-03-08] MEDS: FLUoxetine HCl 10 MG CAPSULE PO (09:19)
[2024-03-08] MEDS: Multivitamin TABLET 1 TAB PO (09:19)
[2024-03-08] MEDS: hydrOXYzine HCL 25 MG TABLET PO (13:02)
[2024-03-08 14:56] VITALS: BP 121/64
[2024-03-08 20:00] VITALS: BP 116/63; PULSE 113; RESP 18; TEMP 36.6; O2SAT 97
[2024-03-08 20:25] VITALS: BP 116/63
[2024-03-08] MEDS: traZODone HCL 50 MG TABLET PO ×2 (20:25→22:45)
[2024-03-08] MEDS: Baclofen 10 MG TABLET PO (20:25)
[2024-03-09] MEDS: Omeprazole 20 MG CAPSULE.DR PO (07:07)
[2024-03-09 08:00] VITALS: BP 123/68; PULSE 116; RESP 16; TEMP 36.6; O2SAT 97
[2024-03-09] MEDS: Buprenorphine/Naloxone 8/2 mg FILM 1 FILM SUBLINGUAL (09:25)
[2024-03-09] MEDS: Dextroamphetamine/Amphetamine XR 10 MG CAP.ER.24H 20 MG PO (09:25)
[2024-03-09 09:26] VITALS: BP 123/68
[2024-03-09] MEDS: cloNIDine HCL 0.2 MG TABLET PO (09:26)
[2024-03-09] MEDS: hydrOXYzine HCL 25 MG TABLET PO (09:26)
[2024-03-09] MEDS: Baclofen 10 MG TABLET PO (09:27)
[2024-03-09] MEDS: Multivitamin TABLET 1 TAB PO (09:27)
[2024-03-09] MEDS: Gabapentin 300 MG CAPSULE 600 MG PO (09:27)
[2024-03-09] MEDS: FLUoxetine HCl 10 MG CAPSULE PO (09:27)
--- NOTE | 2024-03-09 11:16 | PM.PSYDC ---
DS: Providers Provider Date of Service: 03/09/24 Date of admission: 02/29/24 09:30 Date of discharge: 03/09/24 Primary care physician: Srini Physician Admitting clinician: Marcella Lopez Attending physician on admission: Dustin Reed Consults: 02/29/24 11:03 Addiction Medicine Routine Consulting Provider: Addiction Covering Reason for consultation: Off suboxone for 72 hours, asks to restart Has provider been notified: No Attending physician on discharge: Dustin Reed Discharging clinician: Jennifer Pierce DS: Diagnosis Discharge Diagnosis (1) Depression: Status: Acute (2) Polysubstance use disorder: Status: Acute DS: Medications Discharge Medications Home Medications: Previous Rx's ?Medication ?Instructions ?Recorded albuterol sulfate 90 mcg/actuation 2 puff inhalation RQ4H PRN wheeze 03/09/24 aerosol inhaler (Ventolin HFA) 30 days #6.7 grams baclofen 10 mg tablet 10 mg PO TID PRN Opiate Withdrawal 03/09/24 30 days #90 tabs buprenorphine 8 mg-naloxone 2 mg 1 film sublingual BID@0900,1700 7 03/09/24 sublingual film (Suboxone) days #14 ea clonidine HCl 0.2 mg tablet 0.2 mg PO TID 30 days #90 tabs 03/09/24 dextroamphetamine-amphetamine ER 20 mg PO DAILY 30 days #30 caps 03/09/24 20 mg 24hr capsule,extend release fluoxetine 10 mg capsule 10 mg PO DAILY 30 days #30 caps 03/09/24 gabapentin 300 mg capsule 600 mg (2 x 300 mg) PO TID 30 days 03/09/24 #180 caps multivitamin (Daily-Libby tablet) 1 tab PO DAILY 30 days #30 tabs 03/09/24 omeprazole 20 mg capsule,delayed 20 mg PO BID@0630,1630 30 days #60 03/09/24 release caps Mental Status Exam Mental Status Exam Narrative: Pt is alert and oriented; behavior is cooperative and calm; dressed in casual attire; mood is described as good ; eye contact appropriate; Speech is normal rate, volume and not pressured; thought process is goal directed; Thought content is on getting back to [facility]; denies SI/HI/VH/AH. Data Data Completed and Pending Completed studies during hospitalization [Text1]: 03/02/24 08:16 TSH 3.54 Free T4 0.80 02/28/24 19:43 Urine clean catch - Clean Catch Midstream Urine Culture - Final Escherichia coli Imaging Diagnostic Imaging Impressions Chest X-Ray 02/29/24 13:20 IMPRESSION: Unremarkable examination. Electronically signed by: David Rocha MD 02/29/2024 03:32 PM EDT RP DS: Summary Hospital Course Hospital Course: 34 yo female presents with SI, plan to OD on cocaine and heroin and in detox from both. Pt reports she was refused for ACCS today and detox admission. Reports hx of AFib, Fibromyalgia, GERD, Asthma, Cough. Reports her goal is to get clean and to re-establish her med regime. She reports ~1 month relapse, Heroin 1/2 bundle daily via smoking and mixing this with crack. Denies need for Narcan. States she has been unable to remain clean for an extended period of time for a while . She is homeless, states CSS would help as, it is impossible for me to remain clean on the street. Reports hx of gabapentin, adderall XR, Clonidine, Suboxone, Omeprazole, Zofran. Pt able to reach family/partner in [place] to let them know she was safe, admitted and detoxing. We were able to reassure partner of treatment plan and gave contact, visiting information. Pt is also interested in referral for therapy, medications. States this is her first detox admit here. Plan: Admit, 15 minute checks, CV Safe detox Re-establish med regime Collateral contacts Pt expressed interest in CSS admission along with OP referrals for therapy, psychiatry Increase Gabapentin to 600 mg tid Lorazepam 2 mg po x 1 Lorazepam 0.5 mg q 8h prn Patient tearful during assessment. Patient reports feeling uncomfortable from detox. Review of medications, education provided regarding sx mgt. Patient reports passive suicidal ideation with no plan. She is requesting to be referred to a CSS away from this area. Patient denies HI/VH/AH. Increase Clonidine to 0.2 mg TID with holding parameters. start Prozac for depression, anxiety; patient says she was on in the past and that worked well. Reports depression anxiety but only passive SI which is chronic. Feels that if she could get to [facility] she would be doing better right away Active on unit. Irritable at times. Pt reports feeling anxious and depressed because I'm here and want to be at [facility] . Pt reports feeling a little better d/t her medications. denies SI/HI/VH/AH Active on unit. Pt reports feeling upset that I'm still here but other than that I'm okay ; pt is hoping [facility] has an open bed for her to be discharged to; she is focused on her sobriety. denies SI/HI/VH/AH. Active on unit. Pt reports feeling okay today . Per social work, bed was not available at [facility] today. Patient aware; social work to check if bed is available tomorrow. Three day notice up tomorrow. Patient denies any issues at this time. She is looking forward to discharging from the unit. denies SI/HI/VH/AH. Pt reports feeling good today; she is looking forward to going to [facility]. pt denies SI/HI/VH/AH. Pt reports she plans on following up with outpatient providers. Time spent discussing smoking cessation with patient: 3 to 10 minutes Status at Discharge Cognitive/behavioral status at discharge: Patient was interviewed prior to discharge and found to be fully oriented and without SI or HI. Patient has insight and demonstrates good judgment in terms of wanting to pursue treatment. Patient has a safety plan that includes presenting to the closest ER or calling 911 if feeling unsafe. Functional status at discharge: independent ambulation Overall status at discharge: patient is back to baseline Time Spent with Patient Time attestation: Total time managing care of this patient today _20___ minutes. Time spent: Less than 30 minutes Discharge Plan Discharge Anticipated Discharge Date/Time: 03/09/24 11:30 Patient Disposition: Xfer Other Discharge Diagnosis: MDD, PTSD, polysubstance use [facility]Other] - 03/13/24 1:00 pm (Please arrive 15 minutes prior to appointment time to complete paperwork) [facility] [Other] - 04/10/24 11:20 am (Telehealth appointment ) UNIQUE Hernández (Psychiatric Evaluation) [Other] - 05/10/24 11:00 am (Telehealth ) Physician,None [Primary Care Provider] - 1 Week Discharge Medications: New multivitamin [Daily-Libby] Tablet 1 tab PO DAILY 30 Days Qty: 30 0RF omeprazole 20 mg Capsule,Delayed Release(Dr/Ec) 20 mg PO BID@0630,1630 30 Days Qty: 60 0RF gabapentin 300 mg Capsule 600 mg PO TID 30 Days Qty: 180 0RF fluoxetine 10 mg Capsule 10 mg PO DAILY 30 Days Qty: 30 0RF albuterol sulfate [Ventolin HFA] 90 mcg/actuation Hfa Aerosol Inhaler 2 puff inhalation RQ4H PRN (Reason: wheeze) 30 Days Qty: 6.7 0RF baclofen 10 mg Tablet 10 mg PO TID PRN (Reason: Opiate Withdrawal) 30 Days Qty: 90 0RF clonidine HCl 0.2 mg Tablet 0.2 mg PO TID 30 Days Qty: 90 0RF Protocol: Hold for SBP< HOLD for SBP < : 90 buprenorphine-naloxone [Suboxone] 8-2 mg Film 1 film sublingual BID@0900,1700 7 Days Qty: 14 3RF dextroamphetamine-amphetamine 20 mg capsule,extended release 24hr 20 mg PO DAILY 30 Days Qty: 30 0RF Rx Instructions: Partial Fill upon patient request. Discontinued buprenorphine-naloxone [Suboxone] 8-2 mg film 1 film sublingual DAILY Discharge Orders: Discharge Order (Routine); Ordered 03/09/24 Ordered By: Jennifer Pierce Diet: Regular diet Activity on Discharge: As tolerated Stand Alone Forms: Patient Portal Discharge page, Community Support Print Language: [place] Care Plan Goals: Maintain mood and safe behaviors Take medications as prescribed Continue to pursue sobriety Practice coping skills Continue with outpatient providers and reach out to them as needed Health Concerns: Mood stability and behaviors Sobriety Plan of Treatment: Follow up with your PCP, psychiatric provider and other outpatient providers regarding above concerns Take medications as prescribed Assessment: Patient was interviewed prior to discharge and found to be fully oriented and without SI or HI. Patient has insight and demonstrates good judgment in terms of wanting to pursue treatment. Patient has a safety plan that includes presenting to the closest ER or calling 911 if feeling unsafe.
== END 2024-03-09 12:54 | disposition other institution (70) | DRG 754 ==
LOC: HO.ED 02-29 09:01 → HO.PM5 02-29 09:35
PROVIDERS: Admitting Provider Clinical Nurse Specialist Psychiatric/Mental Health, Adult; Emergency Provider Emergency Medicine Emergency Medical Services; Visit Provider Clinical Nurse Specialist Psychiatric/Mental Health, Adult
DX: F32.9 Major depressive disorder, single episode, unspecified (principal); R45.851 Suicidal ideations; F43.10 Post-traumatic stress disorder, unspecified; F19.90 Other psychoactive substance use, unspecified, uncomplicated; N39.0 Urinary tract infection, site not specified; K21.9 Gastro-esophageal reflux disease without esophagitis; J45.909 Unspecified asthma, uncomplicated; B96.20 Unspecified Escherichia coli [E. coli] as the cause of diseases classified elsewhere; Z23 Encounter for immunization; Z59.02 Unsheltered homelessness; Z79.899 Other long term (current) drug therapy
CPT/HCPCS: 36415; 71046; 80053; 80061; 80307; 81001; 82607; 82746; 83036; 83735; 84439; 84443; 85025; 87086; 87088; 87186; 90656; 93005; 99285; S9485

== ENCOUNTER → 2024-02-29 09:30 | Outpatient (BNV) | payer MEDICAID, OTHER, SELFPAY | PROVIDERS: Admitting Provider Clinical Nurse Specialist Psychiatric/Mental Health, Adult; Emergency Provider Emergency Medicine Emergency Medical Services; Visit Provider Clinical Nurse Specialist Psychiatric/Mental Health, Adult | DX: F32.2 Major depressive disorder, single episode, severe without psychotic features (principal); F19.90 Other psychoactive substance use, unspecified, uncomplicated | CPT/HCPCS: 99231; 99232 ==

== ENCOUNTER 2024-03-13 07:08 | Emergency (ER) | payer OTHER, SELFPAY ==
--- NOTE | 2024-03-13 07:23 | ED.PSYCH ---
HPI - Psych General Stated Complaint: SI AFTER RELAPSE PER EMS Source: patient, EMS and old records reviewed Mode of arrival: EMS Limitations: no limitations History of Present Illness ED Provider: DAVIS LOPEZ Narrative: 34 yo female with PMH of depression, PAF, asthma, SVT, UTI, polysubstance abuse currently here after relapse on crack. She notes she has been using crack and hasn't eaten or slept in 2 days. She has SI now. She is worried about withdrawal from opiates as well and has been taking suboxone 8/ BID. She denies any medical complaints at this time. She states she has been here before for this. MD complaint: suicidal ideation, feels depressed and substance abuse Onset (ago): day(s) (few) Duration: constant History of same: Yes Relieving factors: none Exacerbating factors: drug use Context: recent drug abuse Associated psychiatric symptoms: depression and suicidal ideation Associated symptoms: denies other symptoms Treatments prior to arrival: none If self harm: admits thoughts of self harm Related Data Previous Rx's ?Medication ?Instructions ?Recorded albuterol sulfate 90 mcg/actuation 2 puff inhalation RQ4H PRN wheeze 03/09/24 aerosol inhaler (Ventolin HFA) 30 days #6.7 grams baclofen 10 mg tablet 10 mg PO TID PRN Opiate Withdrawal 03/09/24 30 days #90 tabs buprenorphine 8 mg-naloxone 2 mg 1 film sublingual BID@0900,1700 7 03/09/24 sublingual film (Suboxone) days #14 ea clonidine HCl 0.2 mg tablet 0.2 mg PO TID 30 days #90 tabs 03/09/24 dextroamphetamine-amphetamine ER 20 mg PO DAILY 30 days #30 caps 03/09/24 20 mg 24hr capsule,extend release fluoxetine 10 mg capsule 10 mg PO DAILY 30 days #30 caps 03/09/24 gabapentin 300 mg capsule 600 mg (2 x 300 mg) PO TID 30 days 03/09/24 #180 caps multivitamin (Daily-Libby tablet) 1 tab PO DAILY 30 days #30 tabs 03/09/24 omeprazole 20 mg capsule,delayed 20 mg PO BID@0630,1630 30 days #60 03/09/24 release caps Allergies Allergy/AdvReac Type Severity Reaction Status Date / Time strawberry Allergy Anaphylaxis Verified 03/13/24 07:44 Review of Systems Review of Systems: Constitutional : No Fever, No Chills ENT/Mouth : No Ear Pain, No Nasal Congestion, No sore throat Eyes: No Eye Pain, No Swelling, No Redness Cardiovascular : No Chest Pain, No SOB Respiratory : No Cough, No Sputum, No Dyspnea Gastrointestinal : No Nausea, No Vomiting, No Diarrhea, No Hematochezia, No Melena Genitourinary : No Dysuria, No Urinary Frequency, No Hematuria Musculoskeletal : No Myalgias Skin : No Skin Lesions, No rash Neuro : No Weakness, No Numbness, No Paresthesias, No Dizziness, No Headache Psych : positive Anxiety, positive Depression, positive SI no HI All other systems reviewed and are negative PMFSH Past Medical History Attestation statement: The following information was validated with the patient. Source: old records reviewed Medical History Cholecystectomy planned SVT (supraventricular tachycardia) Pancreatitis Surgical History Tubal ligation status Social History Social History Household Members: None Housing: Homeless Do you presently have visiting nurse or other home services: No Alcohol intake: never Patient Tobacco Use Status: Never used Tobacco e-Cigarette/Vaping Use: Never Used Second Hand Smoke Exposure: No Substance Use Type: Crack/Cocaine, Heroin and Caffiene service: No Sexual orientation: Straight/Heterosexual Physical Exam Vital Signs: Appearance: Alert. Oriented X3. No acute distress. disheveled, broken glasses wearing two on top of each other with tape Eyes: Pupils equal, round and reactive to light. ENT: Pharynx normal. Neck: Normal inspection. Neck supple. CVS: Normal heart rate and rhythm. Pulses normal. Respiratory: No respiratory distress. Breath sounds normal. Abdomen: Soft and nontender. Skin: Skin warm and dry. Normal skin color. Normal skin turgor. Extremities: No lower extremity edema. No calf ttp fingers have dark black smith on them from smoke / burn smith Neuro: Oriented X 3. No motor deficit. No sensory deficit. CN2-12 intact Medical Decision Making Medical Decision Making MDM Narrative: 34 yo female with PMH of depression, PAF, asthma, SVT, UTI, polysubstance abuse here with SI after relapse she denies any medical issues or complaints at this time will obtain labs, drug screen, CARE team consult. Differential Diagnosis Differential Diagnoses: The differential diagnosis associated with the presentation includes SI, substance abuse Admission/Observation Consideration of admission/observation: Escalation of care including admission/observation considered physician observation started at 745am pending CARE team Consult Healthcare Provider Management of the patient was discussed with: Behavioral Health Provider Lab Data MDM Lab Attestation statement: I reviewed the patient's lab results. Independent Historian Clinical information obtained from an independent historian. History obtained from or confirmed by: EMS External Record Review External record reviewed: Inpatient record Discharge Plan Discharge Clinical Impression: Depression, Polysubstance abuse Patient Disposition: Still a Patient Prescriptions: No Action multivitamin [Daily-Libby] Tablet 1 tab PO DAILY 30 Days Qty: 30 0RF omeprazole 20 mg Capsule,Delayed Release(Dr/Ec) 20 mg PO BID@0630,1630 30 Days Qty: 60 0RF gabapentin 300 mg Capsule 600 mg PO TID 30 Days Qty: 180 0RF fluoxetine 10 mg Capsule 10 mg PO DAILY 30 Days Qty: 30 0RF albuterol sulfate [Ventolin HFA] 90 mcg/actuation Hfa Aerosol Inhaler 2 puff inhalation RQ4H PRN (Reason: wheeze) 30 Days Qty: 6.7 0RF baclofen 10 mg Tablet 10 mg PO TID PRN (Reason: Opiate Withdrawal) 30 Days Qty: 90 0RF clonidine HCl 0.2 mg Tablet 0.2 mg PO TID 30 Days Qty: 90 0RF Protocol: Hold for SBP< HOLD for SBP < : 90 buprenorphine-naloxone [Suboxone] 8-2 mg Film 1 film sublingual BID@0900,1700 7 Days Qty: 14 3RF dextroamphetamine-amphetamine 20 mg capsule,extended release 24hr 20 mg PO DAILY 30 Days Qty: 30 0RF Rx Instructions: Partial Fill upon patient request. Print Language: Emirati
[2024-03-13 07:26] VITALS: BP 130/94; PULSE 84; O2SAT 99
[2024-03-13 07:37] VITALS: BP 104/61; PULSE 82; RESP 18; TEMP 37; O2SAT 96; BMI 28.3
[2024-03-13 07:52] VITALS: BP 104/61; PULSE 82; RESP 18; TEMP 37; O2SAT 96
[2024-03-13 07:53] LABS: Appearance Urine Cloudy; Color Urine Yellow; Glucose Urine UA Negative (Negative); Leukocyte Esterase Urine Large (3+) (Negative); Nitrite Urine Negative (Negative); UMIC TRIGGER UACC YES; Urine Blood Trace (Negative); Urine Ketones Negative (Negative); Urine Protein Trace mg/dL (Neg-Trace)
[2024-03-13 07:55] LABS: Bacteria Urine Trace (None Seen); Hyaline Casts Urine 0-2 /LPF (0-2); UACC Culture Trigger YES; WBC Urine >50 /HPF (0-5)
[2024-03-13 07:59] LABS: Amphetamine Screen Urine Not Detected (Not Detect); Barbiturates, Urine Not Detected (Not Detect); Benzodiazepines Screen Urine Not Detected (Not Detect); Buprenorphine Scr Positive (Not Detect); Cannabinoid Screen Urine Not Detected (Not Detect); Cocaine Screen Urine POSITIVE (Not Detect); Fentanyl, urine Not Detected (Not Detect); Methadone Screen, Urine Not Detected (Not Detect); Opiate Screen Urine Not Detected (Not Detect); Oxycodone Screen Urine Not Detected (Not Detect); Phencyclidine Screen Urine Not Detected (Not Detect)
[2024-03-13 08:30] LABS: MANUAL DIFF FLAG NO
[2024-03-13 08:32] LABS: Basophils Percent Auto 0.2 % (0-2); Eosinophils Absolute Auto 0.1 X10*3/uL (0.0-0.4); Eosinophils Percent Auto 0.6 % (0-4); Hematocrit 35.1 % (37.0-47.0); Hemoglobin 11.5 g/dl (12.0-16.0); Imm Gran Abs Auto 0.04 X10*3/uL (0.00-0.03); Imm Gran Pct Auto 0.5 % (0.0-0.4); Lymphocytes Absolute Auto 1.8 X10*3/uL (1.2-4.9); Lymphocytes Percent Auto 20.7 % (20-40); Mean Corpuscular HGB Conc 32.8 g/dl (31.0-35.0); Mean Corpuscular Hemoglobin 29.3 pg (27.0-33.0); Mean Corpuscular Volume 89.3 fL (80.0-98.0); Mean Platelet Volume 8.4 fL (9.4-12.3); Monocytes Absolute Auto 0.4 X10*3/uL (0.1-1.2); Monocytes Percent Auto 4.2 % (2-11); Neutrophils Absolute Auto 6.5 x10*3/uL (2.0-8.3); Neutrophils Percent Auto 73.8 % (45-73); Platelet Count 441 X10*3/uL (160-400); Red Blood Count 3.93 X10*6/uL (4.20-5.50); Red Cell Distribution Width 14.2 % (11.0-16.0); White Blood Count 8.8 X10*3/uL (4.8-10.8)
[2024-03-13 08:55] LABS: Acetaminophen LAB < 3 mcg/mL (<30); Salicylate < 5.0 mg/dL (15-30)
[2024-03-13 09:01] LABS: Alanine Aminotransferase 34 U/L (0-31); Albumin Level 4.1 g/dL (3.5-5.0); Alkaline Phosphatase 89 U/L (39-117); Alkaline Phosphatase 91 U/L (39-117); Anion Gap 14 (12-20); Anion Gap 15 (12-20); Aspartate Amino Transferase 39 U/L (5-31); Aspartate Amino Transferase 40 U/L (5-31); Bilirubin Direct 0.2 mg/dL (0.0-0.5); Bilirubin Total 0.4 mg/dL (0.0-1.0); Blood Urea Nitrogen 15 mg/dL (9-16); Blood Urea Nitrogen 16 mg/dL (9-16); Calcium 9.6 mg/dL (8.4-10.2); Carbon Dioxide 29 mmol/L (22-29); Chloride 101 mmol/L (96-108); Creatinine Clr Calc Pharmacy 92.6; Estimated Glomerular Filt Rate > 60; Ethanol < 10 mg/dL; Glucose Random 133 mg/dL (60-115); Magnesium 2.4 mg/dL (1.6-2.6); Potassium 3.8 mmol/L (3.3-5.1); Sodium 140 mmol/L (135-145); Sodium 141 mmol/L (135-145); Total Protein 7.7 g/dL (6.5-8.0); Total Protein 7.8 g/dL (6.5-8.0)
[2024-03-13 09:17] LABS: HCG Quantitative < 2 mIU/mL
[2024-03-13] MEDS: FLUoxetine HCl 10 MG CAPSULE PO (09:35)
[2024-03-13] MEDS: Buprenorphine/Naloxone 8/2 mg FILM 1 FILM SUBLINGUAL ×2 (09:35→18:11)
[2024-03-13] MEDS: cloNIDine HCL 0.2 MG TABLET PO (09:35)
[2024-03-13] MEDS: Gabapentin 300 MG CAPSULE 600 MG PO ×2 (09:35→14:49)
--- NOTE | 2024-03-13 11:50 | MHC.CARE ---
Patient evaluated by the CARE Team and determined to need inpatient psychiatric treatment on a dual diagnosis unit. Dr. Person updated
[2024-03-13 14:46] VITALS: BP 97/58; PULSE 66; RESP 17; TEMP 36.3; O2SAT 94
--- NOTE | 2024-03-13 16:59 | MHC.CARE ---
Pt is accepted to [facility] unit 4S for 03/13. Accepting is Ashley Espinoza. GRISELDA SAUL.
== END 2024-03-13 19:01 ==
PROVIDERS: Emergency Provider Emergency Medicine
DX: F33.1 Major depressive disorder, recurrent, moderate (principal); R45.851 Suicidal ideations; Z79.899 Other long term (current) drug therapy; Z51.81 Encounter for therapeutic drug level monitoring
CPT/HCPCS: 36415; 80048; 80053; 80076; 80143; 80179; 80307; 81001; 83735; 84702; 85025; 87086; 99284; S9485